=== PATIENT | female | born 1935 | race Caucasian/White ===

== ENCOUNTER 2024-07-27 18:00 | Inpatient (IN) | payer MEDICARE, SELFPAY ==
--- NOTE | ~2024-07-27 | XR_ITS ---
CLINICAL HISTORY: NG tube 1 view chest x-ray Comparison: None Findings: Mild left lower lobe atelectasis. No significant pleural effusion or pneumothorax. Prominent cardiac silhouette. No acute fracture. Enteric tube tip projects over the proximal stomach. Nonspecific bowel-gas pattern. IMPRESSION: 1. Enteric tube tip projects over the proximal stomach. 2. Mild left lower lobe atelectasis. This document has been electronically signed by: Ricky Walker MD on 08/04/2024 04:34:53
--- NOTE | ~2024-07-27 | XR_ITS ---
CLINICAL HISTORY: Abdominal distentioin, R O ileus vs. SBO Two views of the abdomen. COMPARISON: CT/SR - CT ABDOMEN PELVIS W IV CON - 07/27/24 21:30 EDT FINDINGS: Oral contrast has progressed into the distal sigmoid colon and rectum. Persistent air-filled loops of distended small bowel in the midabdomen with air-fluid levels. No pneumoperitoneum identified. No fracture identified. Mild spondylosis. Blunting of the bilateral costophrenic angles. No acute fracture. IMPRESSION: 1. Air-filled distended loops of small bowel with air-fluid levels suggestive of early or partial small bowel obstruction. Of note oral contrast has progressed into the distal sigmoid colon favoring partial small bowel obstruction. This document has been electronically signed by: Sree Rod MD on 08/01/2024 18:14:04
--- NOTE | ~2024-07-27 | CT_ITS ---
CLINICAL HISTORY: Abdominal pain. Constipation. SBO? CT Abdomen and Pelvis W Contrast COMPARISON: None FINDINGS: Subcentimeter hypodensity in the liver, too small to accurately characterize. Normal spleen. Left renal cyst. Subcentimeter hypodensities in both kidneys, too small to accurately characterize. No hydronephrosis. Normal adrenal glands. Normal pancreas. Cholelithiasis. Distended gallbladder. No gallbladder wall thickening or pericholecystic fluid. Dilated common bile duct measuring up to 10 mm in diameter. No visible choledocholithiasis. Colonic diverticulosis without evidence of acute diverticulitis. Air-fluid levels in mildly dilated small bowel loops measuring up to 2.7 cm in diameter. There is a transition point in the left lower quadrant. No mucosal thickening or pneumatosis. Normal appendix. Unremarkable bladder. Status post hysterectomy. Small ascites. No pneumoperitoneum. No lymphadenopathy. No acute fracture. Degenerative changes in the spine. Chronic appearing grade 1 spondylolistheses. No abdominal aortic aneurysm. IMPRESSION: Findings consistent with small-bowel obstruction with transition point in the left lower quadrant. Cholelithiasis, distended gallbladder, and biliary dilation. Please correlate with clinical findings to exclude acute cholecystitis. Consider ultrasound if indicated. Small ascites. Nonemergent/incidental findings above. This document has been electronically signed by: Hector Teixeira MD on 07/27/2024 22:34:11
--- NOTE | ~2024-07-27 | CT_ITS ---
CLINICAL HISTORY: dizziness CT Head WO Contrast COMPARISON: None FINDINGS: No acute intracranial hemorrhage. No evidence of acute infarction. Diffuse cortical volume loss. Nonspecific white matter hypodensities, most commonly associated with chronic microangiopathic changes. No mass-effect or midline shift. No hydrocephalus. Visualized orbits are normal. Trace fluid in the ethmoid air cells. Clear mastoid air cells. No acute fracture. Unremarkable soft tissues. IMPRESSION: No acute intracranial findings. Nonemergent/incidental findings in the report. This document has been electronically signed by: Hetcor Teixeira MD on 07/27/2024 22:21:05
--- NOTE | ~2024-07-27 | US_ITS ---
CLINICAL HISTORY: Confirm cholecystitis? Abdominal pain US abdomen limited Comparison: CT/SR - CT ABDOMEN PELVIS W IV CON - 07/27/24 21:30 EDT Findings: The common duct is 8 mm in diameter, which is normal for this patient age. The gallbladder contains stones. No wall thickening. Gallbladder is distended. There is no sonographic Davis sign. IMPRESSION: Cholelithiasis. No sonographic evidence of cholecystitis. This document has been electronically signed by: Sumit Hunter MD on 07/28/2024 01:29:06
--- NOTE | ~2024-07-27 | FL_ITS ---
EXAMINATION: FL SMALL BOWEL SERIES CLINICAL INFORMATION: f/u SBO COMPARISON: CT abdomen and pelvis exam 07/27/2024 TECHNIQUE: Following a resource protection specialist image of the abdomen, contrast was administered orally, and interval abdominal radiographs were performed to assess for contrast progression through the small bowel. Following contrast transit through the small bowel and into the colon, the patient was placed on the fluoroscopy table, and multiple spot images were obtained. FINDINGS: Bilingual Patient Support Caseworker image of the abdomen demonstrates dilated multiple small bowel loops with residual oral contrast seen in colon from previous CT abdomen and pelvis exam 07/27/2024. There is delayed transit time of contrast material through the small bowel, with contrast present in descending colon and rectum by 3 hours. Small bowel loops are of normal caliber throughout the abdomen and pelvis. The jejunal and ileal fold patterns are normal, without evidence of abnormal thickening. No fixed regions of small bowel visualized. FLUOROSCOPY TIME: 0 DOSE AREA PRODUCT: 0 uGy-m2 (microgray-meter squared) FL/FL small bowel follow through IMPRESSION: Delayed small bowel follow-through with left colon and rectum visualized by 3 hours. Electronically signed by: Alber Prieto MD 07/30/2024 01:59 PM EDT
--- NOTE | ~2024-07-27 | CT_ITS ---
CLINICAL HISTORY: left upper quadrant abdominal pain, elevated WBC CT abdomen and pelvis with IV contrast. COMPARISON: CT abdomen and pelvis dated 07/27/24 at 21:30 EDT FINDINGS: Minimal atelectasis along the lung bases. Enteric tube extends into the stomach with tip overlying the distal stomach body. No focal hepatic lesion. Small cholelithiasis within the gallbladder. No pericholecystic inflammatory changes. Normal spleen. Small splenule present. Normal pancreas. Left adrenal gland thickening, similar to prior imaging. Normal appearance of the right adrenal gland. Symmetric renal enhancement. No hydronephrosis. Left renal cystic lesions measuring up to 2.7 cm. Multiple dilated loops of small bowel measuring up to 3.4 cm. Focal transition point present in the left lower quadrant (series 3, image 61). More distal small bowel is contracted. Distal colonic diverticulosis without evidence of diverticulitis. Normal appendix. No mesenteric or retroperitoneal lymphadenopathy. Mild aortoiliac atherosclerotic vascular calcifications. Diffuse thickening of the mucosa of the urinary bladder. No adnexal mass. Small amount of free fluid present within the lower pelvis. Grade 1 anterolisthesis of L4 on L5, degenerative. Moderate lumbar spondylosis. No acute fracture. IMPRESSION: 1. High-grade small-bowel obstruction. Small bowel is dilated measuring up to 3.4 cm with focal transition point in the left lower quadrant. More distal small bowel is contracted. 2. Small volume abdominal ascites, similar to prior imaging. 3. Thickening of the mucosa of the urinary bladder may be secondary to degree of contraction or represent cystitis. Recommend correlation clinically. 4. Colonic diverticulosis without evidence of diverticulitis. This document has been electronically signed by: Sree Rod MD on 08/04/2024 15:04:51
[2024-07-27 18:10] VITALS: BP 140/50; PULSE 55; O2SAT 98
[2024-07-27 18:16] VITALS: BP 158/44; PULSE 52; RESP 16; TEMP 36.7; O2SAT 98; BMI 30.3
--- NOTE | 2024-07-27 18:22 | ECG_ITS ---
Test Reason : DIZZINESS Blood Pressure : */* mmHG Vent. Rate : 48 BPM Atrial Rate : 48 BPM P-R Int : 208 ms QRS Dur : 112 ms QT Int : 462 ms P-R-T Axes : 71 35 41 degrees QTcB Int : 412 ms Sinus bradycardia with sinus arrhythmia Incomplete right bundle branch block Borderline ECG When compared with ECG of 01-Oct-2012 07:14, No significant change was found Referred By: Catrina Moise Electronically Signed By: ENRIQUE NICOLE
[2024-07-27 18:45] LABS: MANUAL DIFF FLAG NO
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
[2024-07-27 18:50] LABS: Basophils Percent Auto 0.1 % (0-2); Hematocrit 35.2 % (37.0-47.0); Imm Gran Abs Auto 0.03 X10*3/uL (0.00-0.03); Imm Gran Pct Auto 0.4 % (0.0-0.4); Lymphocytes Absolute Auto 0.6 X10*3/uL (1.2-4.9); Lymphocytes Percent Auto 7.4 % (20-40); Mean Corpuscular HGB Conc 34.1 g/dl (31.0-35.0); Mean Corpuscular Hemoglobin 31.2 pg (27.0-33.0); Mean Corpuscular Volume 91.4 fL (80.0-98.0); Mean Platelet Volume 9.6 fL (9.4-12.3); Monocytes Absolute Auto 0.4 X10*3/uL (0.1-1.2); Monocytes Percent Auto 4.3 % (2-11); Neutrophils Absolute Auto 7.5 x10*3/uL (2.0-8.3); Neutrophils Percent Auto 87.8 % (45-73); Platelet Count 251 X10*3/uL (160-400); Red Blood Count 3.85 X10*6/uL (4.20-5.50); Red Cell Distribution Width 13.3 % (11.0-16.0); White Blood Count 8.5 X10*3/uL (4.8-10.8)
[2024-07-27] MEDS: Ketorolac Tromethamine 30 MG/ML VIAL IVPUSH (18:57)
[2024-07-27] MEDS: ondansetron HCL 4 MG/2 ML VIAL IVPUSH (18:58)
[2024-07-27 19:00] LABS: Alanine Aminotransferase 36 U/L (0-31); Albumin Level 4.5 g/dL (3.5-5.0); Alkaline Phosphatase 65 U/L (39-117); Anion Gap 14 (12-20); Aspartate Amino Transferase 31 U/L (5-31); Bilirubin Total 1.5 mg/dL (0.0-1.0); Blood Urea Nitrogen 19 mg/dL (9-16); Calcium 10.4 mg/dL (8.4-10.2); Carbon Dioxide 26 mmol/L (22-29); Chloride 100 mmol/L (96-108); Creatinine Clr Calc Pharmacy 50.2; Estimated Glomerular Filt Rate > 60; Glucose Random 137 mg/dL (60-115); Lipase 18 U/L (8-78); Potassium 3.8 mmol/L (3.3-5.1); Sodium 136 mmol/L (135-145); Total Protein 7.4 g/dL (6.5-8.0)
[2024-07-27 19:11] LABS: Troponin-I High Sensitivity < 2.7 ng/L (<3.5-17.0)
[2024-07-27 20:40] VITALS: BP 132/54; PULSE 52; RESP 14; TEMP 36.9; O2SAT 97
[2024-07-27] MEDS: iohexoL 350 MG/ML 100 ML INFUS..BTL 85 ML IV (21:42)
[2024-07-27 22:00] VITALS: PULSE 72; RESP 18; O2SAT 96
[2024-07-27 23:31] VITALS: BP 126/42; PULSE 56; RESP 19; TEMP 37.2; O2SAT 96
[2024-07-28] VITALS (7 sets, daily range): BP systolic 114–169; BP diastolic 42–85; PULSE 44–52; RESP 13–20; TEMP 36.1–37; O2SAT 94–97; BMI 29.5
[2024-07-28] MEDS: 0.9 % Sodium Chloride 1,000 ML 100 ML IVCONT ×3 (00:49→21:57)
[2024-07-28 01:33] LABS: Troponin-I High Sensitivity 4.6 ng/L (<3.5-17.0)
[2024-07-28] MEDS: ondansetron HCL 4 MG/2 ML VIAL IVPUSH (01:37)
--- NOTE | 2024-07-28 01:40 | PC.NURSE ---
late entry this rn performed bedside med rec with pt and pt son. medication confirmed with pt and pt son to the best of their ability. no list provided from home
--- NOTE | 2024-07-28 01:41 | PC.NURSE ---
pt medicated according to mar for increased nausea pt boosted up in bed denies pain at this time
--- NOTE | 2024-07-28 02:57 | MHC.EDTECH ---
this tech attemped to collect a urine sample asking pt if she wanted to try and walk or would rather a commode. pt states she does not have the urge to urinate and does not want to move. pt states she will give a sample when she is in her own room and has her own toilet.
[2024-07-28 05:36] LABS: Hematocrit 34.7 % (37.0-47.0); Mean Corpuscular HGB Conc 34.6 g/dl (31.0-35.0); Mean Corpuscular Hemoglobin 31.4 pg (27.0-33.0); Mean Corpuscular Volume 90.8 fL (80.0-98.0); Mean Platelet Volume 9.8 fL (9.4-12.3); Platelet Count 262 X10*3/uL (160-400); Red Blood Count 3.82 X10*6/uL (4.20-5.50); Red Cell Distribution Width 13.5 % (11.0-16.0); White Blood Count 10.4 X10*3/uL (4.8-10.8)
[2024-07-28 05:59] LABS: Alanine Aminotransferase 31 U/L (0-31); Albumin Level 4.2 g/dL (3.5-5.0); Alkaline Phosphatase 61 U/L (39-117); Anion Gap 14 (12-20); Aspartate Amino Transferase 30 U/L (5-31); Bilirubin Total 1.6 mg/dL (0.0-1.0); Blood Urea Nitrogen 25 mg/dL (9-16); Calcium 10.3 mg/dL (8.4-10.2); Carbon Dioxide 26 mmol/L (22-29); Chloride 97 mmol/L (96-108); Creatinine Clr Calc Pharmacy 40.7; Estimated Glomerular Filt Rate > 60; Glucose Random 125 mg/dL (60-115); Potassium 3.8 mmol/L (3.3-5.1); Sodium 133 mmol/L (135-145)
--- NOTE | 2024-07-28 07:51 | PHA.MEDREC ---
Pharmacy Consult ? Medication Reconciliation Pharmacy has completed the medication reconciliation. Revoewed med rec done by nursing (Alfreda).
[2024-07-28 08:13] LABS: Appearance Urine Clear; Color Urine Yellow; Glucose Urine UA Negative (Negative); Leukocyte Esterase Urine Negative (Negative); Nitrite Urine Negative (Negative); Specific Gravity - Urine >= 1.030 (1.005-1.025); UMIC TRIGGER UACC YES; Urine Blood Negative (Negative); Urine Ketones 15 mg/dL (Negative); Urine Protein 30 (1+) mg/dL (Neg-Trace)
[2024-07-28 08:25] LABS: Bacteria Urine Trace (None Seen); Hyaline Casts Urine 0-2 /LPF (0-2); RBC Urine 0-2 /HPF (0-2); WBC Urine 0-5 /HPF (0-5)
[2024-07-28] MEDS: Morphine Sulfate 2 MG/ML CARTRIDGE IVPUSH (08:26)
--- NOTE | 2024-07-28 08:31 | PC.NURSE ---
Assumed care of pt at 0700. Pt resting in bed quietly, a/ox3, respirations even and unlabored, no increased wob/sob noted, maintaining O2 sat >92% on RA, denies SOB/CP, Sinus kim on panel monitor, HR- 50s. Endorsing RUQ abdominal pain- medicated per MAR with pain scale. Pt assisted out of bed by heel seat flap stapler onto commode with steady gait. Vitals taken and updated in worklist. Son at bedside, call lee within reach, all needs met at this time.
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
[2024-07-28 14:55] LABS: Magnesium 2.3 mg/dL (1.6-2.6)
[2024-07-28] MEDS: bisacodyL 10 MG SUPP.RECT PR (15:31)
[2024-07-28 15:47] LABS: TSH reflex Free T4 3.24 uIU/mL (0.32-4.0)
[2024-07-28] MEDS: 0.9 % Sodium Chloride Flush 3 ML SYRINGE IVFLUSH (21:57)
[2024-07-29 03:29] VITALS: BP 127/58; PULSE 45; RESP 18; TEMP 36.4; O2SAT 97
[2024-07-29] MEDS: 0.9 % Sodium Chloride 1,000 ML 100 ML IVCONT ×2 (07:55→18:07)
--- NOTE | 2024-07-29 07:55 | PM.PNGS ---
Subjective Subjective Date of Service: 07/29/24 <Neris North PA-C - Last Filed: 07/29/24 08:00> 07/29/24 <Rory Malcolm MD - Last Filed: 07/29/24 09:04> Interval history: Feels improved, still with some mild diffuse abdominal pain. Began to pass flatus this morning. Has not been OOB. <Neris North PA-C - Last Filed: 07/29/24 08:00> Physical Exam Vital Signs: Vital Signs: Last Vital Signs Temp 97.5 F 07/29/24 03:29 Pulse 45 L 07/29/24 03:29 Resp 18 07/29/24 03:29 BP 127/58 L 07/29/24 03:29 Pulse Ox 97 07/29/24 03:29 O2 Del Method Room Air 07/29/24 03:29 BMI result Body Mass Index 29.5 <MARCELINO Zhang Last Filed: 07/29/24 08:00> Const: General: comfortable, no acute distress and alert <Neris North PA-C - Last Filed: 07/29/24 08:00> Orientation/consciousness: patient oriented x3 <MARCELINO Zhang Last Filed: 07/29/24 08:00> Resp: Effort & Inspection: normal respiratory effort <MARCELINO Zhang Last Filed: 07/29/24 08:00> GI: Inspection: Yes distended (mild ) <MARCELINO Zhang Last Filed: 07/29/24 08:00> Palpation (GI): Soft to palpation, Tenderness to palpation present (GI) (mild diffuse tenderness) and no guarding <MARCELINO Zhang Last Filed: 07/29/24 08:00> Percussion: Yes tympanic to percussion <MARCELINO Zhang Last Filed: 07/29/24 08:00> Skin: General skin exam: no rashes or lesions noted <MARCELINO Zhang Last Filed: 07/29/24 08:00> Neuro: General: patient oriented x3 and moves all extremities <Neris North PA-C - Last Filed: 07/29/24 08:00> Objective Data Active Medications Acetaminophen (Acetaminophen 325 Mg Tablet) 650 mg PO Q6H PRN PRN Reason: Pain, Mild 1-3,fever,headache Atorvastatin Calcium (Atorvastatin Calcium 10 Mg Tablet) 10 mg PO DAILY [facility] Hydrochlorothiazide (Hydrochlorothiazide 12.5 Mg Tablet) 12.5 mg PO DAILY [facility]; Protocol Sodium Chloride (Ns) 1,000 mls @ 100 mls/hr IVCONT .Q10H [facility] Last Admin: 07/28/24 21:57 Dose: 100 mls/hr Documented By: GERALD Morphine Sulfate (Morphine Sulfate 2 Mg/Ml Cartridge) 2 mg IVPUSH Q4H PRN; Protocol PRN Reason: Pain, Severe (Pain Scale 7-10) Last Admin: 07/28/24 08:26 Dose: 2 mg Documented By: SAMANTHA Non-Formulary Medication (Bimatoprost [Lumigan]) 1 drop EYE-BOTH BEDTIME [facility] Non-Formulary Medication (Brinzolamide-Brimonidine [Simbrinza]) 1 drop EYE-BOTH BID [facility] Ondansetron HCl (Ondansetron Hcl 4 Mg/2 Ml Vial) 4 mg IVPUSH Q8H PRN PRN Reason: Nausea and Vomiting Last Admin: 07/28/24 01:37 Dose: 4 mg Documented By: FAWAD Sodium Chloride (0.9 % Sodium Chloride Flush 3 Ml Syringe) 3 ml IVFLUSH QSHIFT [facility] Last Admin: 07/29/24 06:56 Dose: Not Given Documented By: MADELEINE Non-Admin Reason: IV Running <Neris North PA-C - Last Filed: 07/29/24 08:00> Labs CBC & Chem 7: 07/28/24 05:05 07/28/24 05:05 <Neris North PA-C - Last Filed: 07/29/24 08:00> Labs: Laboratory Results - last 24 hr 07/28/24 07/28/24 05:05 08:02 Magnesium 2.3 TSH 3.24 Urine Color Yellow Urine Appearance Clear Urine pH 6.0 Ur Specific [place] >= 1.030 H Urine Protein 30 (1+) H Urine Glucose (UA) Negative Urine Ketones 15 Urine Blood Negative Urine Nitrite Negative Ur Leukocyte Esterase Negative Urine RBC 0-2 Urine WBC 0-5 Ur Squamous Epith Cells 3-5 Urine Bacteria Trace Hyaline Casts 0-2 <Neris North PA-C - Last Filed: 07/29/24 08:00> Procedures Date of Service Date of Service: 07/29/24 <Neris North PA-C - Last Filed: 07/29/24 08:00> 07/29/24 <Rory Malcolm MD - Last Filed: 07/29/24 09:04> Progress Note: A&P Assessment and plan (1) Small bowel obstruction: Status: Acute <Neris North PA-C - Last Filed: 07/29/24 08:00> Assessment and Plan: Feels well this morning Main complaint appears to be constipation Describes pain on the lower abdomen mostly Abdomen soft, no right upper quadrant tenderness Clinically not cholecystitis We will hold off on cholecystectomy Seen and examined independently <Rory Malcolm MD - Last Filed: 07/29/24 09:04> Assessment and Plan: Feels overall improved. Some evidence of GI function, abd remains slightly distended and tympanitic. Encouraged OOB/ambulation today to promote GI function. Keep NPO, ok for ice chips/sips. Cont IVF. Clinical picture not suggestive of acute cholecystitis. <Neris North PA-C - Last Filed: 07/29/24 08:00> Time Spent With Patient Time: Total time managing care of this patient today ____ minutes. <Neris North PA-C - Last Filed: 07/29/24 08:00> Quality Stroke Does the patient have a stroke diagnosis?: No <Neris North PA-C - Last Filed: 07/29/24 08:00> VTE Prior VTE?: No <Neris North PA-C - Last Filed: 07/29/24 08:00> VTE Risk Level:: Medical - low <MARCELINO Zhang Last Filed: 07/29/24 08:00> VTE Device Contraindication: Treatment Not Indicated <Neris North PA-C - Last Filed: 07/29/24 08:00> VTE Drug Contraindication: Treatment Not Indicated <Neris North PA-C - Last Filed: 07/29/24 08:00>
[2024-07-29] MEDS: hydroCHLOROthiazide 12.5 MG TABLET PO (08:01)
[2024-07-29] MEDS: Atorvastatin Calcium 10 MG TABLET PO (08:02)
[2024-07-29 08:03] VITALS: BP 142/72; PULSE 51; RESP 13; TEMP 36.8; O2SAT 98
[2024-07-29] MEDS: BRINZOLAMIDE BRIMONIDINE 1 EACH EYE-BOTH ×2 (09:00→20:41)
[2024-07-29 14:25] VITALS: BP 161/66; PULSE 50; RESP 18; TEMP 36.9; O2SAT 97
--- NOTE | 2024-07-29 14:30 | PM.EVENT ---
Event Note Date of Service: 07/29/24 Event Note: Seen on afternoon rounds She says she feels much better No nausea or vomiting Abdomen is soft and benign Minimally tender No Davis's sign We will start trial of clear liquids Time Spent With Patient Time: Total time managing care of this patient today ____ minutes.
--- NOTE | 2024-07-29 15:55 | MHC.CM.PN ---
PT REPORTS SHE IS FROM [facility] IN [place] PT STATES SHE HAS NO SERVICES OR DME COPY OF HCP REQUESTED PCP: [facility] DELIVERED DCP: PT HOPES TO RETURN HOME WITH NO SERVICES FAMILY TO TRANSPORT
[2024-07-29 15:57] VITALS: BP 175/74; PULSE 44; RESP 14; TEMP 36.9; O2SAT 97
[2024-07-29] MEDS: BIMATOPROST 0.01% 1 EACH EYE-BOTH (20:42)
[2024-07-29 22:00] VITALS: BP 175/75; PULSE 50; RESP 17; TEMP 37.1; O2SAT 97
[2024-07-29] MEDS: Morphine Sulfate 2 MG/ML CARTRIDGE IVPUSH (23:47)
[2024-07-30 06:00] VITALS: BP 161/69; PULSE 50; RESP 17; TEMP 36.8; O2SAT 96
[2024-07-30 07:00] VITALS: BP 162/74; PULSE 64; PULSE 67; RESP 20; TEMP 36.3; O2SAT 96
[2024-07-30 07:20] VITALS: BP 154/68; PULSE 50; RESP 18; TEMP 36.4; O2SAT 97
--- NOTE | 2024-07-30 07:38 | PM.PNGS ---
Subjective Subjective Date of Service: 07/30/24 <Neris North PA-C - Last Filed: 07/30/24 07:43> 07/30/24 <Rory Malcolm MD - Last Filed: 07/30/24 08:04> Interval history: Had difficulty with pain yesterday. Required morphine. Overall just does not feel significantly improved although she is passing flatus and has had a few small hard BMs. <Neris North PA-C - Last Filed: 07/30/24 07:43> Physical Exam Vital Signs: Vital Signs: Last Vital Signs Temp 97.6 F 07/30/24 07:20 Pulse 50 07/30/24 07:20 Resp 18 07/30/24 07:20 BP 154/68 H 07/30/24 07:20 Pulse Ox 97 07/30/24 07:20 O2 Del Method Room Air 07/30/24 07:20 BMI result Body Mass Index 29.5 <Neris North PA-C - Last Filed: 07/30/24 07:43> Const: General: comfortable, no acute distress and alert <Neris North PA-C - Last Filed: 07/30/24 07:43> Orientation/consciousness: patient oriented x3 <MARCELINO Zhang Last Filed: 07/30/24 07:43> Resp: Effort & Inspection: normal respiratory effort <MARCELINO Zhang Last Filed: 07/30/24 07:43> GI: Inspection: Yes distended <Neris North PA-C - Last Filed: 07/30/24 07:43> Palpation (GI): Soft to palpation, Tenderness to palpation present (GI) (moderate mid and upper b/l abdominal tenderness) and no guarding <Neris North PA-C - Last Filed: 07/30/24 07:43> Percussion: Yes tympanic to percussion <MARCELINO Zhang Last Filed: 07/30/24 07:43> Skin: General skin exam: no rashes or lesions noted <MARCELINO Zhang Last Filed: 07/30/24 07:43> Neuro: General: patient oriented x3 and moves all extremities <Neris North PA-C - Last Filed: 07/30/24 07:43> Objective Data Active Medications Acetaminophen (Acetaminophen 325 Mg Tablet) 650 mg PO Q6H PRN PRN Reason: Pain, Mild 1-3,fever,headache Atorvastatin Calcium (Atorvastatin Calcium 10 Mg Tablet) 10 mg PO DAILY [facility] Last Admin: 07/29/24 08:02 Dose: 10 mg Documented By: MADELEINE Hydrochlorothiazide (Hydrochlorothiazide 12.5 Mg Tablet) 12.5 mg PO DAILY [facility]; Protocol Last Admin: 07/29/24 08:01 Dose: 12.5 mg Documented By: MADELEINE Morphine Sulfate (Morphine Sulfate 2 Mg/Ml Cartridge) 2 mg IVPUSH Q4H PRN; Protocol PRN Reason: Pain, Severe (Pain Scale 7-10) Last Admin: 07/29/24 23:47 Dose: 2 mg Documented By: BRISSA Pt Own Medication ( Bimatoprost [Lumigan ] 0.01 % Drops) 1 drop EYE-BOTH BEDTIME [facility] Last Admin: 07/29/24 20:42 Dose: 1 drop Documented By: BRISSA Pt Own Medication ( Brinzolamide- Brimonidine [ Simbrinza] 1-0.2 % Drops,Suspension) 1 drop EYE-BOTH BID [facility] Last Admin: 07/29/24 20:41 Dose: 1 drop Documented By: BRISSA Ondansetron HCl (Ondansetron Hcl 4 Mg/2 Ml Vial) 4 mg IVPUSH Q8H PRN PRN Reason: Nausea and Vomiting Last Admin: 07/28/24 01:37 Dose: 4 mg Documented By: FAWAD Sodium Chloride (0.9 % Sodium Chloride Flush 3 Ml Syringe) 3 ml IVFLUSH QSSDFT [facility] Last Admin: 07/30/24 00:48 Dose: Not Given Documented By: BRISSA Non-Admin Reason: IV Running <Neris North PA-C - Last Filed: 07/30/24 07:43> Labs CBC & Chem 7: 07/28/24 05:05 07/28/24 05:05 <Neris North PA-C - Last Filed: 07/30/24 07:43> Procedures Date of Service Date of Service: 07/30/24 <Neris North PA-C - Last Filed: 07/30/24 07:43> 07/30/24 <Rory Malcolm MD - Last Filed: 07/30/24 08:04> Progress Note: A&P Assessment and plan (1) Small bowel obstruction: Status: Acute <Neris North PA-C - Last Filed: 07/30/24 07:43> Assessment and Plan: Describes pain yesterday mostly in the lower abdomen No nausea or vomiting Abdomen is soft, benign, mild diffuse tenderness No fever Passing flatus Small bowel series ordered today with Gastrografin Seen and examined independently <Rory Malcolm MD - Last Filed: 07/30/24 08:04> Assessment and Plan: Will order for SBFT this morning to reassess given persistent pain, distention. Cont to encouraged OOB/ambulation. HR increased to 120s with ambulation yesterday, bradycardic at baseline. Was asymptomatic. Repeat BMP this morning. Cont to monitor. Cont IVF. <Neris North PA-C - Last Filed: 07/30/24 07:43> Time Spent With Patient Time: Total time managing care of this patient today ____ minutes. <Neris North PA-C - Last Filed: 07/30/24 07:43> Quality Stroke Does the patient have a stroke diagnosis?: No <eNris North PA-C - Last Filed: 07/30/24 07:43> VTE Prior VTE?: No <Neris North PA-C - Last Filed: 07/30/24 07:43> VTE Risk Level:: Medical - low <Neris North PA-C - Last Filed: 07/30/24 07:43> VTE Device Contraindication: Treatment Not Indicated <Neris North PA-C - Last Filed: 07/30/24 07:43> VTE Drug Contraindication: Treatment Not Indicated <Neris North PA-C - Last Filed: 07/30/24 07:43>
[2024-07-30 08:52] LABS: Anion Gap 11 (12-20); Blood Urea Nitrogen 17 mg/dL (9-16); Calcium 9.1 mg/dL (8.4-10.2); Carbon Dioxide 26 mmol/L (22-29); Chloride 102 mmol/L (96-108); Creatinine Clr Calc Pharmacy 50.2; Estimated Glomerular Filt Rate > 60; Glucose Fasting 111 mg/dL (60-99); Potassium 3.4 mmol/L (3.3-5.1); Sodium 136 mmol/L (135-145)
--- NOTE | 2024-07-30 09:41 | P.PNIM_ITS ---
Subjective Subjective Date of Service: 07/30/24 Interval History: feeling better, no dizziness Physical Exam 2 Vital Signs: Vital Signs: Last Vital Signs Temp 97.6 F 07/30/24 07:20 Pulse 50 07/30/24 07:20 Resp 18 07/30/24 07:20 BP 154/68 H 07/30/24 07:20 Pulse Ox 97 07/30/24 07:20 O2 Del Method Room Air 07/30/24 07:20 BMI result Body Mass Index 29.5 Const: Other: General: AO X 3, no acute distress Resp: CTA bilateral CVS: S1,S2,RRR GI: +BS, NT, no distention Skin: No rash Neuro: motor grossly intact Psych: appropriate affect Objective Data Active Medications Acetaminophen (Acetaminophen 325 Mg Tablet) 650 mg PO Q6H PRN PRN Reason: Pain, Mild 1-3,fever,headache Atorvastatin Calcium (Atorvastatin Calcium 10 Mg Tablet) 10 mg PO DAILY [facility] Last Admin: 07/29/24 08:02 Dose: 10 mg Documented By: MADELEINE Hydrochlorothiazide (Hydrochlorothiazide 12.5 Mg Tablet) 12.5 mg PO DAILY [facility]; Protocol Last Admin: 07/29/24 08:01 Dose: 12.5 mg Documented By: MADELEINE Sodium Chloride (Ns) 1,000 mls @ 100 mls/hr IVCONT .Q10H [facility] Morphine Sulfate (Morphine Sulfate 2 Mg/Ml Cartridge) 2 mg IVPUSH Q4H PRN; Protocol PRN Reason: Pain, Severe (Pain Scale 7-10) Last Admin: 07/29/24 23:47 Dose: 2 mg Documented By: BRISSA Pt Own Medication ( Bimatoprost [Lumigan ] 0.01 % Drops) 1 drop EYE-BOTH BEDTIME [facility] Last Admin: 07/29/24 20:42 Dose: 1 drop Documented By: BRISSA Pt Own Medication ( Brinzolamide- Brimonidine [ Simbrinza] 1-0.2 % Drops,Suspension) 1 drop EYE-BOTH BID [facility] Last Admin: 07/29/24 20:41 Dose: 1 drop Documented By: BRISSA Ondansetron HCl (Ondansetron Hcl 4 Mg/2 Ml Vial) 4 mg IVPUSH Q8H PRN PRN Reason: Nausea and Vomiting Last Admin: 07/28/24 01:37 Dose: 4 mg Documented By: FAWAD Sodium Chloride (0.9 % Sodium Chloride Flush 3 Ml Syringe) 3 ml IVFLUSH QSHIFT [facility] Last Admin: 07/30/24 00:48 Dose: Not Given Documented By: BRISSA Non-Admin Reason: IV Running Labs 07/28/24 05:05 07/30/24 08:06 Labs: Laboratory Results - last 24 hr 07/30/24 08:06 Hold Purple Top SEE NOTE Anion Gap 11 L Estim Creat Clear Calc 50.2 Estimated GFR > 60 Fasting Glucose 111 H Calcium 9.1 D Assessment and Plan (1) Bradycardia: Status: Acute Plan Pt is an 89-year-old female with a PMH significant for HTN, HLD, glaucoma, and surgical hx of hysterectomy and appendectomy who was admitted to the hospital under general surgery services for possible SBO. CT of abdomen and pelvis in the ED showed findings consistent with SBO with transition point in left lower quadrant, as well as cholelithiasis with distended gallbladder and biliary dilation. Abdomen ultrasound showed cholelithiasis but no sonographic evidence of cholecystitis. Medical consult for bradycardia and medical management. SBO, clinically improving, management per surgery Bradycardia, HR in 50s, ECG sinus kim with sinus arrythmia, unchanged since September 2012, assymptomatic, not on rate lowering meds, monitor HLD Continue statin HTN Continue hydrochlorothiazide Glaucoma Continue home eyedrops medically stable at this time and can be dc from medical standpoint and resume prior meds Quality Stroke Does the patient have a stroke diagnosis?: No VTE Prior VTE?: No VTE Risk Level:: Medical - low VTE Device Contraindication: Treatment Not Indicated VTE Drug Contraindication: Treatment Not Indicated
[2024-07-30] MEDS: Diatrizoate Meglumine, Sodium 120 ML SOLUTION 480 ML PO (10:55)
[2024-07-30] MEDS: BRINZOLAMIDE BRIMONIDINE 1 EACH EYE-BOTH ×2 (11:10→21:08)
[2024-07-30] MEDS: Atorvastatin Calcium 10 MG TABLET PO (11:11)
[2024-07-30] MEDS: hydroCHLOROthiazide 12.5 MG TABLET PO (11:11)
[2024-07-30] MEDS: 0.9 % Sodium Chloride Flush 3 ML SYRINGE IVFLUSH ×2 (11:11→18:40)
[2024-07-30] MEDS: 0.9 % Sodium Chloride 1,000 ML 100 ML IVCONT ×2 (11:13→23:39)
[2024-07-30] MEDS: ondansetron HCL 4 MG/2 ML VIAL IVPUSH ×2 (15:28→22:29)
[2024-07-30 15:54] VITALS: BP 187/77; PULSE 50; RESP 18; TEMP 36.8; O2SAT 98
[2024-07-30] MEDS: Erythromycin Base 250 MG TABLET PO (18:40)
[2024-07-30] MEDS: Morphine Sulfate 2 MG/ML CARTRIDGE IVPUSH (18:43)
[2024-07-30 20:00] VITALS: BP 162/74; PULSE 67; RESP 20; TEMP 36.3; O2SAT 96
[2024-07-30] MEDS: BIMATOPROST 0.01% 1 EACH EYE-BOTH (21:08)
[2024-07-30 21:16] VITALS: RESP 18
[2024-07-30] MEDS: Melatonin 3 MG TABLET 6 MG PO (22:25)
[2024-07-31 03:40] VITALS: BP 155/67; PULSE 44; RESP 16; TEMP 36.7; O2SAT 95
--- NOTE | 2024-07-31 08:15 | P.PNGS_ITS ---
Subjective Subjective Date of Service: 08/02/24 Interval history: Says she has a good night Admits to passing large amounts of watery stools after excision of oral contrast yesterday Complains of ?burping? and reflux Physical Exam 2 Vital Signs: Vital Signs: Last Vital Signs Temp 98.0 F 07/31/24 03:40 Pulse 44 L 07/31/24 03:40 Resp 16 07/31/24 03:40 BP 155/67 H 07/31/24 03:40 Pulse Ox 95 07/31/24 03:40 O2 Del Method Room Air 07/31/24 03:40 BMI result Body Mass Index 29.5 Const: General: comfortable and no acute distress Resp: Effort & Inspection: normal respiratory effort Cardio: Rate: regular rate GI: Other: Mild diffuse tenderness mostly in lower abdomen Palpation (GI): Soft to palpation, not firm and no guarding Objective Data Active Medications Acetaminophen (Acetaminophen 325 Mg Tablet) 650 mg PO Q6H PRN PRN Reason: Pain, Mild 1-3,fever,headache Atorvastatin Calcium (Atorvastatin Calcium 10 Mg Tablet) 10 mg PO DAILY [facility] Last Admin: 07/30/24 11:11 Dose: 10 mg Documented By: ANY Erythromycin (Erythromycin Base 250 Mg Tablet) 250 mg PO TIDWM [facility] Last Admin: 07/30/24 18:40 Dose: 250 mg Documented By: ANY Hydrochlorothiazide (Hydrochlorothiazide 12.5 Mg Tablet) 12.5 mg PO DAILY [facility]; Protocol Last Admin: 07/30/24 11:11 Dose: 12.5 mg Documented By: ANY Sodium Chloride (Ns) 1,000 mls @ 100 mls/hr IVCONT .Q10H [facility] Last Admin: 07/31/24 03:47 Dose: Not Given Documented By: BRISSA Non-Admin Reason: IV Running Melatonin (Melatonin 3 Mg Tablet) 6 mg PO BEDTIME PRN PRN Reason: Insomnia Last Admin: 07/30/24 22:25 Dose: 6 mg Documented By: BRISSA Morphine Sulfate (Morphine Sulfate 2 Mg/Ml Cartridge) 2 mg IVPUSH Q4H PRN; Protocol PRN Reason: Pain, Severe (Pain Scale 7-10) Last Admin: 07/30/24 18:43 Dose: 2 mg Documented By: ANY Pt Own Medication ( Bimatoprost [Lumigan ] 0.01 % Drops) 1 drop EYE-BOTH BEDTIME [facility] Last Admin: 07/30/24 21:08 Dose: 1 drop Documented By: BRISSA Pt Own Medication ( Brinzolamide- Brimonidine [ Simbrinza] 1-0.2 % Drops,Suspension) 1 drop EYE-BOTH BID [facility] Last Admin: 07/30/24 21:08 Dose: 1 drop Documented By: BRISSA Ondansetron HCl (Ondansetron Hcl 4 Mg/2 Ml Vial) 4 mg IVPUSH Q8H PRN PRN Reason: Nausea and Vomiting Last Admin: 07/30/24 22:29 Dose: 4 mg Documented By: BRISSA Sodium Chloride (0.9 % Sodium Chloride Flush 3 Ml Syringe) 3 ml IVFLUSH QSHIFT [facility] Last Admin: 07/31/24 00:05 Dose: Not Given Documented By: BRISSA Non-Admin Reason: IV Running Labs 08/01/24 15:05 08/02/24 06:10 Labs: Laboratory Results - last 24 hr 07/30/24 08:06 Hold Purple Top SEE NOTE Anion Gap 11 L Estim Creat Clear Calc 50.2 Estimated GFR > 60 Fasting Glucose 111 H Calcium 9.1 D Laboratory Results WBC 10.4 X10*3/uL (4.8-10.8) 07/28/24 05:05 RBC 3.82 X10*6/uL (4.20-5.50) L 07/28/24 05:05 Hgb 12.0 g/dl (12.0-16.0) 07/28/24 05:05 Hct 34.7 % (37.0-47.0) L 07/28/24 05:05 MCV 90.8 fL (80.0-98.0) 07/28/24 05:05 MCH 31.4 pg (27.0-33.0) 07/28/24 05:05 MCHC 34.6 g/dl (31.0-35.0) 07/28/24 05:05 RDW 13.5 % (11.0-16.0) 07/28/24 05:05 Plt Count 262 X10*3/uL (160-400) 07/28/24 05:05 MPV 9.8 fL (9.4-12.3) 07/28/24 05:05 Immature Gran % (Auto) 0.4 % (0.0-0.4) 07/27/24 18:38 Neut % (Auto) 87.8 % (45-73) H 07/27/24 18:38 Lymph % (Auto) 7.4 % (20-40) L 07/27/24 18:38 [place] % (Auto) 4.3 % (2-11) 07/27/24 18:38 Eos % (Auto) 0.0 % (0-4) 07/27/24 18: Baso % (Auto) 0.1 % (0-2) 07/27/24 18:38 Lymph # (Auto) 0.6 X10*3/uL (1.2-4.9) L 07/27/24 18:38 [place] # (Auto) 0.4 X10*3/uL (0.1-1.2) 07/27/24 18:38 Eos # (Auto) 0.0 X10*3/uL (0.0-0.4) 07/27/24 18:38 Baso # (Auto) 0.0 X10*3/uL (0.0-0.2) 07/27/24 18:38 Abs Immat Gran (auto) 0.03 X10*3/uL (0.00-0.03) 07/27/24 18:38 Absolute Neuts (auto) 7.5 x10*3/uL (2.0-8.3) 07/27/24 18: Absolute Nucleated RBC 0.000 X10*3/uL (0.0-0.012) 07/28/24 05:05 Nucleated RBC % (auto) 0.0 /100WBC (0.0-0.2) 07/28/24 05:05 Hold Purple Top SEE NOTE 07/30/24 08:06 Sodium 136 mmol/L (135-145) 07/30/24 08:06 Potassium 3.4 mmol/L (3.3-5.1) 07/30/24 08:06 Chloride 102 mmol/L (96-108) 07/30/24 08:06 Carbon Dioxide 26 mmol/L (22-29) 07/30/24 08:06 Anion Gap 11 (12-20) L 07/30/24 08:06 BUN 17 mg/dL (9-16) H 07/30/24 08:06 Creatinine 0.64 mg/dL (0.5-1.4) 07/30/24 08:06 Estim Creat Clear Calc 50.2 07/30/24 08:06 Estimated GFR > 60 07/30/24 08:06 Random Glucose 125 mg/dL (60-115) H 07/28/24 05:05 Fasting Glucose 111 mg/dL (60-99) H 07/30/24 08:06 Calcium 9.1 mg/dL (8.4-10.2) D 07/30/24 08:06 Magnesium 2.3 mg/dL (1.6-2.6) 07/28/24 05:05 Total Bilirubin 1.6 mg/dL (0.0-1.0) H 07/28/24 05:05 AST 30 U/L (5-31) 07/28/24 05:05 ALT 31 U/L (0-31) 07/28/24 05:05 Alkaline Phosphatase 61 U/L (39-117) 07/28/24 05:05 Troponin I High Sens 4.6 ng/L (<3.5-17.0) D 07/28/24 01:06 Total Protein 7.0 g/dL (6.5-8.0) 07/28/24 05:05 Albumin 4.2 g/dL (3.5-5.0) 07/28/24 05:05 Lipase 18 U/L (8-78) 07/27/24 18:38 TSH 3.24 uIU/mL (0.32-4.0) 07/28/24 05:05 Urine Color Yellow 07/28/24 08:02 Urine Appearance Clear 07/28/24 08:02 Urine pH 6.0 (5.0-9.0) 07/28/24 08:02 Ur Specific [place] >= 1.030 (1.005-1.025) H 07/28/24 08:02 Urine Protein 30 (1+) mg/dL (Neg-Trace) H 07/28/24 08:02 Urine Glucose (UA) Negative mg/dL (Negative) 07/28/24 08:02 Urine Ketones 15 mg/dL (Negative) 07/28/24 08:02 Urine Blood Negative (Negative) 07/28/24 08:02 Urine Nitrite Negative (Negative) 07/28/24 08:02 Ur Leukocyte Esterase Negative (Negative) 07/28/24 08:02 Urine RBC 0-2 /HPF (0-2) 07/28/24 08:02 Urine WBC 0-5 /HPF (0-5) 07/28/24 08:02 Ur Squamous Epith Cells 3-5 /HPF (0-2) 07/28/24 08:02 Urine Bacteria Trace (None Seen) 07/28/24 08:02 Hyaline Casts 0-2 /LPF (0-2) 07/28/24 08:02 Impressions Upper GI and Small Bowel X-Ray 07/30/24 08:24 IMPRESSION: Delayed small bowel follow-through with left colon and rectum visualized by 3 hours. Electronically signed by: Alber Prieto MD 07/30/2024 01:59 PM EDT RP Procedures Date of Service Date of Service: 08/02/24 Progress Note: A&P Assessment and plan (1) Abdominal pain: Status: Acute Assessment and Plan: Small bowel series done yesterday does not reveal obstruction although there is note of some delay of passage of contrast into the colon Suggestive of ileus Abdomen is soft and benign She does admit to burping and reflux We will keep on clear liquids for now Has had BMs after oral contrast Hospitalist following as well Had a long discussion with her son with regards to the above Currently no surgical intervention seems to be necessary Time Spent With Patient Time: Total time managing care of this patient today ____ minutes. Quality Stroke Does the patient have a stroke diagnosis?: No VTE Prior VTE?: No VTE Risk Level:: Medical - low VTE Device Contraindication: Treatment Not Indicated VTE Drug Contraindication: Treatment Not Indicated
[2024-07-31 08:32] VITALS: BP 173/81; PULSE 56; RESP 17; TEMP 37.2; O2SAT 94
[2024-07-31 09:28] VITALS: BP 162/59
[2024-07-31] MEDS: hydroCHLOROthiazide 12.5 MG TABLET PO (09:28)
[2024-07-31] MEDS: Atorvastatin Calcium 10 MG TABLET PO (09:28)
[2024-07-31] MEDS: Erythromycin Base 250 MG TABLET PO ×3 (09:28→17:31)
[2024-07-31] MEDS: BRINZOLAMIDE BRIMONIDINE 1 EACH EYE-BOTH ×2 (09:29→20:19)
--- NOTE | 2024-07-31 12:36 | P.PNIM_ITS ---
Subjective Subjective Date of Service: 07/31/24 Interval History: Pt seen and evaluated for follow-up for for concern for SBO vs ileus Had multiple bowel movements, mixed with watery and solid, some incontinence Small bowel follow through series negative for obstruction but showed delayed emptying Reports feeling well overall Has been tolerating clear liquid diet No nausea since last night, no vomiting Denies chest pain or pressure No lightheadedness or dizziness Physical Exam 2 Vital Signs: Vital Signs: Last Vital Signs Temp 99 F 07/31/24 08:32 Pulse 56 07/31/24 08:32 Resp 17 07/31/24 08:32 BP 162/59 H 07/31/24 09:28 Pulse Ox 94 07/31/24 08:32 O2 Del Method Room Air 07/31/24 08:32 BMI result Body Mass Index 29.5 General: AOx3, no acute distress Resp: CTA bilaterally CVS: S1, S2, RRR GI: +BS in all quadrants, soft, moderate distension Skin: Warm, dry Neuro: Cranial nerves II-XII grossly intact bilaterally. Motor grossly intact bilaterally Extremities: No edema Psych: Appropriate affect Objective Data Active Medications Acetaminophen (Acetaminophen 325 Mg Tablet) 650 mg PO Q6H PRN PRN Reason: Pain, Mild 1-3,fever,headache Atorvastatin Calcium (Atorvastatin Calcium 10 Mg Tablet) 10 mg PO DAILY [facility] Last Admin: 07/31/24 09:28 Dose: 10 mg Documented By: NALDO Erythromycin (Erythromycin Base 250 Mg Tablet) 250 mg PO TIDWM [facility] Last Admin: 07/31/24 12:11 Dose: 250 mg Documented By: NALDO Hydrochlorothiazide (Hydrochlorothiazide 12.5 Mg Tablet) 12.5 mg PO DAILY [facility]; Protocol Last Admin: 07/31/24 09:28 Dose: 12.5 mg Documented By: NALDO Comments: BP re-checked at 0920. Melatonin (Melatonin 3 Mg Tablet) 6 mg PO BEDTIME PRN PRN Reason: Insomnia Last Admin: 07/30/24 22:25 Dose: 6 mg Documented By: BRISSA Morphine Sulfate (Morphine Sulfate 2 Mg/Ml Cartridge) 2 mg IVPUSH Q4H PRN; Protocol PRN Reason: Pain, Severe (Pain Scale 7-10) Last Admin: 07/30/24 18:43 Dose: 2 mg Documented By: ANY Pt Own Medication ( Bimatoprost [Lumigan ] 0.01 % Drops) 1 drop EYE-BOTH BEDTIME [facility] Last Admin: 07/30/24 21:08 Dose: 1 drop Documented By: BRISSA Pt Own Medication ( Brinzolamide- Brimonidine [ Simbrinza] 1-0.2 % Drops,Suspension) 1 drop EYE-BOTH BID [facility] Last Admin: 07/31/24 09:29 Dose: 1 drop Documented By: NALDO Ondansetron HCl (Ondansetron Hcl 4 Mg/2 Ml Vial) 4 mg IVPUSH Q8H PRN PRN Reason: Nausea and Vomiting Last Admin: 07/30/24 22:29 Dose: 4 mg Documented By: BRISSA Sodium Chloride (0.9 % Sodium Chloride Flush 3 Ml Syringe) 3 ml IVFLUSH QSHIFT [facility] Last Admin: 07/31/24 09:16 Dose: Not Given Documented By: NALDO Non-Admin Reason: IV Running Labs 07/28/24 05:05 07/30/24 08:06 Assessment and Plan (1) Abdominal pain: Status: Acute Plan Pt is an 89-year-old female with a PMH significant for HTN, HLD, glaucoma, and surgical hx of hysterectomy and appendectomy who was admitted to the hospital under general surgery services for possible SBO. CT of abdomen and pelvis in the ED showed findings consistent with SBO with transition point in left lower quadrant, as well as cholelithiasis with distended gallbladder and biliary dilation. Abdomen ultrasound showed cholelithiasis but no sonographic evidence of cholecystitis. Medical consult for bradycardia and medical management. 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 Quality Stroke Does the patient have a stroke diagnosis?: No VTE Prior VTE?: No VTE Risk Level:: Medical - low VTE Device Contraindication: Treatment Not Indicated VTE Drug Contraindication: Treatment Not Indicated
[2024-07-31 13:44] VITALS: BP 151/66; PULSE 50; RESP 20; TEMP 37.2; O2SAT 97
--- NOTE | 2024-07-31 14:37 | MHC.CM.PN ---
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 Original Note: EMR REVIEWED, PT NOW W/IMAGING SUGGRSTIVE OF ILEUS, PT WILL REMAIN ON CLEAR LIQUIDS, PLAN CONT'S TO BE FOR PT TO RETURN TO [facility] ONCE MEDICALLY CLEARED, CM WILL CONT TO FOLLOW DC NEEDS.
[2024-07-31] MEDS: 0.9 % Sodium Chloride Flush 3 ML SYRINGE IVFLUSH (20:23)
[2024-07-31] MEDS: BIMATOPROST 0.01% 1 EACH EYE-BOTH (20:27)
[2024-07-31] MEDS: ondansetron HCL 4 MG/2 ML VIAL IVPUSH (21:46)
[2024-07-31 22:00] VITALS: BP 135/61; PULSE 54; RESP 18; TEMP 36.4; O2SAT 97
[2024-08-01 00:55] VITALS: BP 153/69; PULSE 52; RESP 20; O2SAT 94
[2024-08-01] MEDS: hydrOXYzine HCL 25 MG TABLET PO ×3 (00:55→22:23)
--- NOTE | 2024-08-01 03:06 | PC.NURSE ---
0055-- Patient stating to be feeling restless with some anxiety, after talking and discussing her medications, Pt wishing to try Atarax PO at this time. vitals 153/69-52-20- 94% room air. Noted able to relax and fall asleep with no s/sx distress. Will continue to monitor.
[2024-08-01 03:12] VITALS: BP 138/65; PULSE 54; RESP 18; TEMP 37.1; O2SAT 94
--- NOTE | 2024-08-01 07:34 | P.PNGS_ITS ---
Subjective Subjective Date of Service: 08/01/24 <Neris North PA-C - Last Filed: 08/01/24 07:41> 08/02/24 <Rory Malcolm MD - Last Filed: 08/02/24 09:16> Interval history: Had a difficult night and was unable to sleep. Continues to belch and feels bloated. Still having loose stools but improving. Nausea with sips of liquids yesterday. She reports being OOB to chair yesterday but no ambulation as she felt so poorly. Will try to walk this morning. <MARCELINO Zhang Last Filed: 08/01/24 07:41> Physical Exam 2 Vital Signs: Vital Signs: Last Vital Signs Temp 98.7 F 08/01/24 03:12 Pulse 54 08/01/24 03:12 Resp 18 08/01/24 03:12 BP 138/65 08/01/24 03:12 Pulse Ox 94 08/01/24 03:12 O2 Del Method Room Air 08/01/24 03:12 BMI result Body Mass Index 29.5 <Neris North PA-C - Last Filed: 08/01/24 07:41> Const: General: no acute distress and alert <MARCELINO Zhang Last Filed: 08/01/24 07:41> Orientation/consciousness: patient oriented x3 <MARCELINO Zhang Last Filed: 08/01/24 07:41> Resp: Effort & Inspection: normal respiratory effort <MARCELINO Zhang Last Filed: 08/01/24 07:41> GI: Other: increasingly distended this morning but soft mild upper abd tenderness <MARCELINO Zhang Last Filed: 08/01/24 07:41> Inspection: Yes distended <MARCELINO Zhang Last Filed: 08/01/24 07:41> Palpation (GI): no guarding and not rigid <MARCELINO Zhang Last Filed: 08/01/24 07:41> Percussion: Yes tympanic to percussion <MARCELINO Zhang Last Filed: 08/01/24 07:41> Skin: General skin exam: no rashes or lesions noted <Neris North PA-C - Last Filed: 08/01/24 07:41> Neuro: General: patient oriented x3 and moves all extremities <Neris North PA-C - Last Filed: 08/01/24 07:41> Objective Data Active Medications Acetaminophen (Acetaminophen 325 Mg Tablet) 650 mg PO Q6H PRN PRN Reason: Pain, Mild 1-3,fever,headache Amlodipine Besylate (Amlodipine Besylate 5 Mg Tablet) 5 mg PO DAILY PRN; Protocol PRN Reason: SBP >170 Atorvastatin Calcium (Atorvastatin Calcium 10 Mg Tablet) 10 mg PO DAILY [facility] Last Admin: 07/31/24 09:28 Dose: 10 mg Documented By: NALDO Erythromycin (Erythromycin Base 250 Mg Tablet) 250 mg PO TIDWM [facility] Last Admin: 07/31/24 17:31 Dose: 250 mg Documented By: NALDO Hydrochlorothiazide (Hydrochlorothiazide 12.5 Mg Tablet) 12.5 mg PO DAILY [facility]; Protocol Last Admin: 07/31/24 09:28 Dose: 12.5 mg Documented By: NALDO Comments: BP re-checked at 0920. Hydroxyzine HCl (Hydroxyzine Hcl 25 Mg Tablet) 25 mg PO Q6H PRN PRN Reason: Anxiety Last Admin: 08/01/24 00:55 Dose: 25 mg Documented By: DAVID Melatonin (Melatonin 3 Mg Tablet) 6 mg PO BEDTIME PRN PRN Reason: Insomnia Last Admin: 07/30/24 22:25 Dose: 6 mg Documented By: BRISSA Morphine Sulfate (Morphine Sulfate 2 Mg/Ml Cartridge) 2 mg IVPUSH Q4H PRN; Protocol PRN Reason: Pain, Severe (Pain Scale 7-10) Last Admin: 07/30/24 18:43 Dose: 2 mg Documented By: ANY Pt Own Medication ( Bimatoprost [Lumigan ] 0.01 % Drops) 1 drop EYE-BOTH BEDTIME [facility] Last Admin: 07/31/24 20:27 Dose: 1 drop Documented By: DAVID Pt Own Medication ( Brinzolamide- Brimonidine [ Simbrinza] 1-0.2 % Drops,Suspension) 1 drop EYE-BOTH BID [facility] Last Admin: 07/31/24 20:19 Dose: 1 drop Documented By: DAVID Ondansetron HCl (Ondansetron Hcl 4 Mg/2 Ml Vial) 4 mg IVPUSH Q8H PRN PRN Reason: Nausea and Vomiting Last Admin: 07/31/24 21:46 Dose: 4 mg Documented By: DAVID Sodium Chloride (0.9 % Sodium Chloride Flush 3 Ml Syringe) 3 ml IVFLUSH QSHIFT [facility] Last Admin: 07/31/24 20:23 Dose: 3 ml Documented By: DAVID <Neris North PA-C - Last Filed: 08/01/24 07:41> Labs CBC & Chem 7: 08/01/24 15:05 08/02/24 06:10 <Neris North PA-C - Last Filed: 08/01/24 07:41> Procedures Date of Service Date of Service: 08/01/24 <Neris North PA-C - Last Filed: 08/01/24 07:41> 08/02/24 <Rory Malcolm MD - Last Filed: 08/02/24 09:16> Progress Note: A&P Assessment and plan (1) Abdominal pain: Status: Acute <Neris North PA-C - Last Filed: 08/01/24 07:41> Assessment and Plan: Some belching Continues to have bowel movements, watery Denies significant abdominal pain Abdomen is soft, benign Looks well overall Likely ileus On erythromycin Out of bed to chair, increase activity GI eval Seen and examined independently <Rory Malcolm MD - Last Filed: 08/02/24 09:16> Assessment and Plan: SBFT does not reveal obstruction although there is note of some delay of passage of contrast into the colon, stomach was full of contrast on 3h imaging. Picture suggestive of ileus. On erythromycin for promility. Continues with nausea, belching but continues with BMs. Abd increasingly distended this morning, but soft. Continue clear liquids as tolerated for now, encouraged OOB/ambulation and increasing activity to promote GI function. Family was requesting GI consult yesterday which has been ordered. <Neris North PA-C - Last Filed: 08/01/24 07:41> Time Spent With Patient Time: Total time managing care of this patient today ____ minutes. <Neris North PA-C - Last Filed: 08/01/24 07:41> Quality Stroke Does the patient have a stroke diagnosis?: No <Neris North PA-C - Last Filed: 08/01/24 07:41> VTE Prior VTE?: No <Neris North PA-C - Last Filed: 08/01/24 07:41> VTE Risk Level:: Medical - low <Neris North PA-C - Last Filed: 08/01/24 07:41> VTE Device Contraindication: Treatment Not Indicated <Neris North PA-C - Last Filed: 08/01/24 07:41> VTE Drug Contraindication: Treatment Not Indicated <Neris North PA-C - Last Filed: 08/01/24 07:41>
[2024-08-01 07:53] VITALS: BP 178/76; PULSE 52; RESP 18; TEMP 36.9; O2SAT 94
[2024-08-01] MEDS: 0.9 % Sodium Chloride Flush 3 ML SYRINGE IVFLUSH ×2 (08:27→21:35)
[2024-08-01] MEDS: hydroCHLOROthiazide 12.5 MG TABLET PO (08:27)
[2024-08-01] MEDS: amLODIPine Besylate 5 MG TABLET PO (08:27)
[2024-08-01] MEDS: Erythromycin Base 250 MG TABLET PO ×2 (08:27→11:51)
[2024-08-01] MEDS: BRINZOLAMIDE BRIMONIDINE 1 EACH EYE-BOTH ×2 (08:27→20:38)
[2024-08-01] MEDS: Atorvastatin Calcium 10 MG TABLET PO (08:27)
--- NOTE | 2024-08-01 09:11 | P.PNIM_ITS ---
Subjective Subjective Date of Service: 08/01/24 Interval History: Reports has been drinking water ?beautifully? today without nausea or vomiting Continues to experience watery diarrhea, though no episodes of incontinence Continues to have bloating Denies abdominal pain Is not passing significant amounts of gas Was out of bed yesterday to walker, though not yet ambulating around room Review of Systems Review of Systems: Yes all other systems are reviewed and are negative Physical Exam 2 Vital Signs: Vital Signs: Last Vital Signs Temp 98.5 F 08/01/24 07:53 Pulse 52 08/01/24 07:53 Resp 18 08/01/24 07:53 BP 178/76 H 08/01/24 07:53 Pulse Ox 94 08/01/24 07:53 O2 Del Method Room Air 08/01/24 07:53 BMI result Body Mass Index 29.5 General: AOx3, no acute distress Resp: CTA bilaterally CVS: S1, S2, RRR GI: +BS, non-tender, soft with moderate distension Skin: Warm, dry Neuro: Cranial nerves II-XII grossly intact bilaterally. Motor grossly intact bilaterally Extremities: No edema Psych: Appropriate affect Objective Data Active Medications Acetaminophen (Acetaminophen 325 Mg Tablet) 650 mg PO Q6H PRN PRN Reason: Pain, Mild 1-3,fever,headache Amlodipine Besylate (Amlodipine Besylate 5 Mg Tablet) 5 mg PO DAILY PRN; Protocol PRN Reason: SBP >170 Last Admin: 08/01/24 08:27 Dose: 5 mg Documented By: IRVIN Atorvastatin Calcium (Atorvastatin Calcium 10 Mg Tablet) 10 mg PO DAILY [facility] Last Admin: 08/01/24 08:27 Dose: 10 mg Documented By: IRVIN Erythromycin (Erythromycin Base 250 Mg Tablet) 250 mg PO TIDWM [facility] Last Admin: 08/01/24 08:27 Dose: 250 mg Documented By: IRVIN Hydrochlorothiazide (Hydrochlorothiazide 12.5 Mg Tablet) 12.5 mg PO DAILY [facility]; Protocol Last Admin: 08/01/24 08:27 Dose: 12.5 mg Documented By: IRVIN Hydroxyzine HCl (Hydroxyzine Hcl 25 Mg Tablet) 25 mg PO Q6H PRN PRN Reason: Anxiety Last Admin: 08/01/24 00:55 Dose: 25 mg Documented By: DAVID Melatonin (Melatonin 3 Mg Tablet) 6 mg PO BEDTIME PRN PRN Reason: Insomnia Last Admin: 07/30/24 22:25 Dose: 6 mg Documented By: BRISSA Morphine Sulfate (Morphine Sulfate 2 Mg/Ml Cartridge) 2 mg IVPUSH Q4H PRN; Protocol PRN Reason: Pain, Severe (Pain Scale 7-10) Last Admin: 07/30/24 18:43 Dose: 2 mg Documented By: ANY Pt Own Medication ( Bimatoprost [Lumigan ] 0.01 % Drops) 1 drop EYE-BOTH BEDTIME [facility] Last Admin: 07/31/24 20:27 Dose: 1 drop Documented By: DAVID Pt Own Medication ( Brinzolamide- Brimonidine [ Simbrinza] 1-0.2 % Drops,Suspension) 1 drop EYE-BOTH BID [facility] Last Admin: 08/01/24 08:27 Dose: 1 drop Documented By: IRVIN Ondansetron HCl (Ondansetron Hcl 4 Mg/2 Ml Vial) 4 mg IVPUSH Q8H PRN PRN Reason: Nausea and Vomiting Last Admin: 07/31/24 21:46 Dose: 4 mg Documented By: DAVID Sodium Chloride (0.9 % Sodium Chloride Flush 3 Ml Syringe) 3 ml IVFLUSH QSHIFT [facility] Last Admin: 08/01/24 08:27 Dose: 3 ml Documented By: IRVIN Labs 07/28/24 05:05 07/30/24 08:06 Assessment and Plan (1) Abdominal pain: Status: Acute Plan Pt is an 89-year-old female with a PMH significant for HTN, HLD, glaucoma, and surgical hx of hysterectomy and appendectomy who was admitted to the hospital under general surgery services for possible SBO. CT of abdomen and pelvis in the ED showed findings consistent with SBO with transition point in left lower quadrant, as well as cholelithiasis with distended gallbladder and biliary dilation. Abdomen ultrasound showed cholelithiasis but no sonographic evidence of cholecystitis. Medical consult for bradycardia and medical management. 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 Quality Stroke Does the patient have a stroke diagnosis?: No VTE Prior VTE?: No VTE Risk Level:: Medical - low VTE Device Contraindication: Treatment Not Indicated VTE Drug Contraindication: Treatment Not Indicated
[2024-08-01 09:47] VITALS: BP 139/65
[2024-08-01 14:00] VITALS: BP 176/60; PULSE 55; RESP 16; TEMP 37.1; O2SAT 93
[2024-08-01 15:14] LABS: Basophils Percent Auto 0.1 % (0-2); Eosinophils Percent Auto 0.6 % (0-4); Hematocrit 36.6 % (37.0-47.0); Hemoglobin 12.7 g/dl (12.0-16.0); Imm Gran Abs Auto 0.14 X10*3/uL (0.00-0.03); Lymphocytes Absolute Auto 1.2 X10*3/uL (1.2-4.9); Lymphocytes Percent Auto 16.9 % (20-40); MANUAL DIFF FLAG SCAN; Mean Corpuscular HGB Conc 34.7 g/dl (31.0-35.0); Mean Corpuscular Hemoglobin 32.1 pg (27.0-33.0); Mean Corpuscular Volume 92.4 fL (80.0-98.0); Mean Platelet Volume 9.8 fL (9.4-12.3); Monocytes Absolute Auto 1.9 X10*3/uL (0.1-1.2); Monocytes Percent Auto 26.5 % (2-11); Neutrophils Absolute Auto 3.8 x10*3/uL (2.0-8.3); Neutrophils Percent Auto 53.9 % (45-73); Platelet Count 229 X10*3/uL (160-400); Red Blood Count 3.96 X10*6/uL (4.20-5.50); Red Cell Distribution Width 13.5 % (11.0-16.0); SCAN SMEAR FLAG 1
--- NOTE | 2024-08-01 15:19 | PM.EVENT ---
Event Note Date of Service: 08/01/24 Event Note: GI Consult-Full note dictated. History from patient, EMR, and her RN. Imp: 89 yo female admitted with an acute SBO based on initial CT. She denies any preceding GI complaints whatsoever. A F/U SB series about 48 hours later showed some dilated loops of SI and slow transit of Barium into the colon, but without obstruction. Her stomach had some retained Barium as well. She remains with some anorexia and belching. Her abdominal exam has some BS, as well as being distended and tympanitic. She is not particularly tender. I suspect this is an ileus s/p her SBO. She has not improved with po Erythromycin. Rec: Recheck some labs today. Recheck plain abdominal xrays. Trial of a suppository. Consider a trial of IV Reglan if no improvement and there is no sign of obstruction, although we'd have to be cautious with Reglan given her age. Based on her ongoing belching, her current exam, and suspected gastric retention she might need a NG tube at some point as well to help with decompression. I don't think she needs any type of endoscopic intervention at this time. D/W patient in detail. I did offer to call her family but she told me that she would rather I didn't. D/W Lizzy Zhang. Thanks Time Spent With Patient Time: Total time managing care of this patient today ____ minutes.
[2024-08-01] MEDS: ondansetron HCL 4 MG/2 ML VIAL IVPUSH (15:31)
[2024-08-01 15:35] LABS: SLIDE REVIEW VERIFIED
[2024-08-01 15:51] LABS: Free T4 (Free Thyroxine) 1.17 ng/dL (0.71-1.85)
[2024-08-01 15:58] LABS: Anion Gap 11 (12-20); Blood Urea Nitrogen 20 mg/dL (9-16); Calcium 9.8 mg/dL (8.4-10.2); Carbon Dioxide 34 mmol/L (22-29); Chloride 99 mmol/L (96-108); Creatinine Clr Calc Pharmacy 49.5; Estimated Glomerular Filt Rate > 60; Glucose Fasting 109 mg/dL (60-99); Potassium 2.8 mmol/L (3.3-5.1); Sodium 141 mmol/L (135-145)
[2024-08-01] MEDS: Lactated Ringers 1,000 ML 100 ML IVCONT (16:05)
[2024-08-01] MEDS: Potassium Chloride/H20 10 MEQ/100 ML PIGGYBACK 100 MEQ IV ×4 (16:06→21:21)
[2024-08-01] MEDS: lisinopriL 5 MG TABLET PO (16:31)
[2024-08-01] MEDS: Famotidine/PF 20 MG/2 ML VIAL IVPUSH (16:38)
[2024-08-01] MEDS: BIMATOPROST 0.01% 1 EACH EYE-BOTH (20:39)
[2024-08-01 20:43] VITALS: BP 144/68; PULSE 62; RESP 18; TEMP 36.7; O2SAT 93
[2024-08-01 20:54] LABS: Anion Gap 13 (12-20); Carbon Dioxide 29 mmol/L (22-29); Chloride 101 mmol/L (96-108); Potassium 2.7 mmol/L (3.3-5.1); Sodium 140 mmol/L (135-145)
[2024-08-01] MEDS: Potassium Chloride Packet 20 MEQ PACKET 40 MEQ PO (22:19)
--- NOTE | 2024-08-02 02:03 | CONS_ITS ---
DATE OF SERVICE: 08/01/2024 REASON FOR CONSULTATION: Abdominal distention and recent small-bowel obstruction. HISTORY OF PRESENT ILLNESS: This has been obtained from the patient, the medical record, and her nurse. The patient is a healthy 89-year-old female who was in her usual state of health up until the morning of admission when she awoke with abdominal pain and abdominal distention. Prior to the day of admission, she had been feeling very well. She had a normal dinner the night before including a salad with chicken and a Cannoli. She lives at an independent living facility and reports that she eats very well and does not have any particular GI complaints on a regular basis. She reports that her bowel movements have been very regular at home without any signs of bleeding. She has enjoyed a good appetite and denies any significant heartburn nor dysphagia. She had not been having any episodes of abdominal pain, abdominal distention, jaundice, nor weight loss. Her last colonoscopy in 2009 revealed only some diverticulosis, small rectal polyp, and internal hemorrhoids. The pathology showed the polyp to be only hyperplastic. At that time given her age and the basically negative colonoscopy, she had not been recommended to have any further screening exams. She denies any known family history of colorectal cancer nor inflammatory bowel disease. Since admission, she did undergo a CAT scan that describes a small-bowel obstruction with a transition point. Over the last 72 hours, she has had some improvement with passage of some liquid stool, but she remains distended and with belching. Small-bowel series showed delayed transit of barium, although it did enter the colon. It looks like her stomach had slow emptying as well. Today, she denies any particular abdominal pain, but is uncomfortable. She thinks things are improved from when she first came in the hospital, but does remain definitely distended compared to her baseline. She has been tolerating just some small amounts of clear liquids thus far. She has nausea and belching, but there has been no vomiting. She denies any melena nor hematochezia. She has been afebrile. She was started on oral erythromycin about 48 hours ago, but has not had any improvement. MEDICATIONS: At home include only atorvastatin, hydrochlorothiazide, and eyedrops. Her medications here in the hospital include acetaminophen, amlodipine, atorvastatin, eyedrops, hydrochlorothiazide, lisinopril, melatonin, morphine p.r.n., and Zofran p.r.n. PAST MEDICAL HISTORY: She has had a hysterectomy with associated appendectomy. She has had knee surgery. Hypertension and hyperlipidemia. She denies any history of AL, diabetes, stroke, lung disease, nor renal disease. SOCIAL HISTORY: She is a . She lives in independent living facility. She does not smoke nor use any significant amounts of alcohol. REVIEW OF SYSTEMS: CONSTITUTIONAL: Prior to becoming ill, she has been feeling very well with good energy and good appetite. SKIN: Without any rashes or pruritus. CARDIAC: No chest pain. PULMONARY: No coughing or hemoptysis. GI: As above. URINARY: No dysuria, no hematuria. NEUROLOGIC: No headache or seizures. PHYSICAL EXAMINATION: GENERAL: The patient is a pleasant, alert, comfortable-appearing female, in no distress. SKIN: Warm and dry. Nonjaundiced. HEENT: Anicteric sclerae. Moist mucous membranes. NECK: Supple. CHEST: Clear. CARDIAC: Normal S1, S2. ABDOMEN: Clearly distended and tympanitic to percussion. Bowel sounds are present but diminished. There is some mild diffuse tenderness but without any rebound, guarding, nor any significant tenderness to palpation. There is no mass. EXTREMITIES: Without edema. NEUROLOGICAL: She is alert and oriented. LABORATORIES: Her most recent CBC on July 28 showed a white count of 10.4, hemoglobin 12.0, MCV 91, and platelets 262,000. Her most recent chemistries from July 30 showed normal electrolytes. BUN 17, creatinine 0.6, and calcium 9.1. The most recent liver profile on July 28 was normal other than a minimally elevated total bilirubin of 1.6. She had a TSH of 3.24. Her CT scan on admission showed gallstones and a common duct of 10 mm but no choledocholithiasis. There is no CT evidence of gallbladder wall thickening or pericholecystic fluid. There are air-fluid levels and dilated small bowel with a transition point in the left lower quadrant. There is no free air. She had an abdominal ultrasound on July 28 describing the gallstones but no evidence of cholecystitis and a bile duct of only 8 mm. She had an upper GI and small-bowel series on July 30 describing delayed transit of barium to the small bowel, but did enter the colon. The stomach had some delayed emptying of barium as well. The small bowel did appear to be somewhat dilated still, but without any obstruction. IMPRESSION: Given the patient's clinical history, she clearly still has some residual ileus ongoing based on her abdominal exam and the clinical history. It appears that the small-bowel obstruction has resolved, which most likely was related to adhesions from previous abdominal surgery. Her remaining ileus may be simply in response to the small-bowel obstruction and the delayed return of normal bowel motility. The other concern would be that of a persistent ongoing partial low-grade obstruction causing her current clinical picture of the distended abdomen and tympany. At this point, she has not responded to oral erythromycin. At this point, I do not think she needs any type of endoscopic intervention. I have ordered a repeat set of laboratories today including electrolytes to rule out any ongoing hypokalemia. I have ordered repeat abdominal x-rays to further assess for any ongoing low-grade small bowel obstruction versus an ileus. I have ordered a Dulcolax suppository just to see if that can perhaps stimulate some motility and passage of gas. If the imaging studies are negative for obstruction and she continues to have problems, I would consider a trial of IV Reglan but proceed cautiously due to her age. Given her ongoing belching, her abdominal exam currently, and suspected gastric retention, she may need a nasogastric tube at some point to help with decompression. I do not think a repeat CT scan is required. In regard to the gallstones, I suspect those are an incidental finding. It does not appear that she has cholecystitis based on the imaging studies. The common duct was borderline and given the normal liver profile, I do not think a MRCP is needed. However, if she has any localizing pain to the right upper quadrant and/or the LFTs rise, then we can always consider a MRCP. I did review all this in detail with the patient. She understood and was comfortable with the plan. I did offer to call her family to review things with them, but she states that she would rather I did not call them at this point. Thank you for this consultation. MD NAVIN Goldstein/CARLOS / [phone] RAJINDER
[2024-08-02 06:00] VITALS: BP 135/63; PULSE 58; RESP 18; TEMP 36.9; O2SAT 95
[2024-08-02 06:48] LABS: Alanine Aminotransferase 23 U/L (0-31); Albumin Level 3.5 g/dL (3.5-5.0); Alkaline Phosphatase 60 U/L (39-117); Anion Gap 11 (12-20); Aspartate Amino Transferase 28 U/L (5-31); Bilirubin Direct 0.6 mg/dL (0.0-0.5); Bilirubin Total 1.8 mg/dL (0.0-1.0); Blood Urea Nitrogen 16 mg/dL (9-16); Calcium 9.1 mg/dL (8.4-10.2); Carbon Dioxide 32 mmol/L (22-29); Chloride 98 mmol/L (96-108); Creatinine Clr Calc Pharmacy 49.5; Estimated Glomerular Filt Rate > 60; Glucose Fasting 103 mg/dL (60-99); Sodium 138 mmol/L (135-145); Total Protein 5.9 g/dL (6.5-8.0)
[2024-08-02] MEDS: Famotidine/PF 20 MG/2 ML VIAL IVPUSH ×2 (08:09→20:33)
[2024-08-02] MEDS: lisinopriL 5 MG TABLET PO (08:09)
[2024-08-02] MEDS: 0.9 % Sodium Chloride Flush 3 ML SYRINGE IVFLUSH ×3 (08:09→23:30)
[2024-08-02] MEDS: Atorvastatin Calcium 10 MG TABLET PO (08:09)
[2024-08-02] MEDS: BRINZOLAMIDE BRIMONIDINE 1 EACH EYE-BOTH ×2 (08:11→20:39)
--- NOTE | 2024-08-02 08:23 | PM.PNGS ---
Subjective Subjective Date of Service: 08/02/24 <Neris North PA-C - Last Filed: 08/02/24 08:30> 08/02/24 <Rory Malcolm MD - Last Filed: 08/02/24 13:32> Interval history: She feels better this morning, less bloated and denies abd pain. Denies nausea or belching. Had two mushy BMs yesterday per nursing. Did not get OOB. <Neris North PA-C - Last Filed: 08/02/24 08:30> Physical Exam Vital Signs: Vital Signs: Last Vital Signs Temp 98.4 F 08/02/24 06:00 Pulse 58 08/02/24 06:00 Resp 18 08/02/24 06:00 BP 135/63 08/02/24 06:00 Pulse Ox 95 08/02/24 06:00 O2 Del Method Room Air 08/02/24 06:00 BMI result Body Mass Index 29.5 <Neris North PA-C - Last Filed: 08/02/24 08:30> Const: General: comfortable, no acute distress and alert <Neris North PA-C - Last Filed: 08/02/24 08:30> Orientation/consciousness: patient oriented x3 <MARCELINO Zhang Last Filed: 08/02/24 08:30> Resp: Effort & Inspection: normal respiratory effort <MARCELINO Zhang Last Filed: 08/02/24 08:30> GI: Other: remains distended, mildly improved <MARCELINO Zhang Last Filed: 08/02/24 08:30> Palpation (GI): Soft to palpation, nontender and no guarding <MARCELINO Zhang Last Filed: 08/02/24 08:30> Percussion: Yes tympanic to percussion <MARCELINO Zhang Last Filed: 08/02/24 08:30> Skin: General skin exam: no rashes or lesions noted <MARCELINO Zhang Last Filed: 08/02/24 08:30> Neuro: General: patient oriented x3 and moves all extremities <Neris North PA-C - Last Filed: 08/02/24 08:30> Objective Data Active Medications Acetaminophen (Acetaminophen 325 Mg Tablet) 650 mg PO Q6H PRN PRN Reason: Pain, Mild 1-3,fever,headache Amlodipine Besylate (Amlodipine Besylate 5 Mg Tablet) 5 mg PO DAILY PRN; Protocol PRN Reason: SBP >170 Last Admin: 08/01/24 08:27 Dose: 5 mg Documented By: RIVIN Atorvastatin Calcium (Atorvastatin Calcium 10 Mg Tablet) 10 mg PO DAILY [facility] Last Admin: 08/02/24 08:09 Dose: 10 mg Documented By: IRVIN Famotidine (Famotidine/Pf 20 Mg/2 Ml Vial) 20 mg IVPUSH BID [facility] Last Admin: 08/02/24 08:09 Dose: 20 mg Documented By: IRVIN Hydrochlorothiazide (Hydrochlorothiazide 12.5 Mg Tablet) 12.5 mg PO DAILY [facility]; Protocol Last Admin: 08/01/24 08:27 Dose: 12.5 mg Documented By: IRVIN Hydroxyzine HCl (Hydroxyzine Hcl 25 Mg Tablet) 25 mg PO Q6H PRN PRN Reason: Anxiety Last Admin: 08/01/24 22:23 Dose: 25 mg Documented By: DAVID Lisinopril (Lisinopril 5 Mg Tablet) 5 mg PO DAILY [facility]; Protocol Last Admin: 08/02/24 08:09 Dose: 5 mg Documented By: IRVIN Melatonin (Melatonin 3 Mg Tablet) 6 mg PO BEDTIME PRN PRN Reason: Insomnia Last Admin: 07/30/24 22:25 Dose: 6 mg Documented By: BRISSA Morphine Sulfate (Morphine Sulfate 2 Mg/Ml Cartridge) 2 mg IVPUSH Q4H PRN; Protocol PRN Reason: Pain, Severe (Pain Scale 7-10) Last Admin: 07/30/24 18:43 Dose: 2 mg Documented By: ANY Pt Own Medication ( Bimatoprost [Lumigan ] 0.01 % Drops) 1 drop EYE-BOTH BEDTIME [facility] Last Admin: 08/01/24 20:39 Dose: 1 drop Documented By: DAVID Pt Own Medication ( Brinzolamide- Brimonidine [ Simbrinza] 1-0.2 % Drops,Suspension) 1 drop EYE-BOTH BID [facility] Last Admin: 08/02/24 08:11 Dose: 1 drop Documented By: IRVIN Ondansetron HCl (Ondansetron Hcl 4 Mg/2 Ml Vial) 4 mg IVPUSH Q8H PRN PRN Reason: Nausea and Vomiting Last Admin: 08/01/24 15:31 Dose: 4 mg Documented By: IRVIN Potassium Chloride (Potassium Chloride Packet 20 Meq Packet) 40 meq PO ONCE ONE Stop: 08/02/24 08:23 Sodium Chloride (0.9 % Sodium Chloride Flush 3 Ml Syringe) 3 ml IVFLUSH QSHIFT [facility] Last Admin: 08/02/24 08:09 Dose: 3 ml Documented By: IRVIN <Neris North PA-C - Last Filed: 08/02/24 08:30> Labs CBC & Chem 7: 08/01/24 15:05 08/02/24 06:10 <Neris North PA-C - Last Filed: 08/02/24 08:30> Labs: Laboratory Results - last 24 hr 08/01/24 08/01/24 08/02/24 15:05 20:23 06:10 MCV 92.4 MCH 32.1 MCHC 34.7 RDW 13.5 Plt Count 229 MPV 9.8 Immature Gran % (Auto) 2.0 H Neut % (Auto) 53.9 Lymph % (Auto) 16.9 L [place] % (Auto) 26.5 H Eos % (Auto) 0.6 Baso % (Auto) 0.1 Lymph # (Auto) 1.2 [place] # (Auto) 1.9 H Eos # (Auto) 0.0 Baso # (Auto) 0.0 Abs Immat Gran (auto) 0.14 H Absolute Neuts (auto) 3.8 Absolute Nucleated RBC 0.000 Nucleated RBC % (auto) 0.0 Smear Tech's Comments VERIFIED Hold Purple Top SEE NOTE Anion Gap 11 L 13 11 L Estim Creat Clear Calc 49.5 49.5 Estimated GFR > 60 > 60 Fasting Glucose 109 H 103 H Calcium 9.8 D 9.1 D Total Bilirubin 1.8 H Direct Bilirubin 0.6 H AST 28 ALT 23 Alkaline Phosphatase 60 Total Protein 5.9 L Albumin 3.5 Free T4 1.17 <Neris North PA-C - Last Filed: 08/02/24 08:30> Procedures Date of Service Date of Service: 08/02/24 <Neris North PA-C - Last Filed: 08/02/24 08:30> 08/02/24 <Rory Malcolm MD - Last Filed: 08/02/24 13:32> Progress Note: A&P Assessment and plan (1) Abdominal pain: Status: Acute <Neris North PA-C - Last Filed: 08/02/24 08:30> Assessment and Plan: Still distended She says she had a good night last night She does state that she feels better this morning Still passing liquid stools She had a KUB last night showing he had had small bowel loops but contrast all the way into the colon No evidence of obstruction on small bowel series Likely some degree of ileus especially with the hypokalemia Correct potassium Encouraged to get out of bed, ambulate Abdomen distended but soft and benign We will keep on clear liquids for now Seen and examined independently <Rory Malcolm MD - Last Filed: 08/02/24 13:32> Assessment and Plan: Clinically not obstructed as patient has had multiple BMs, SBFT showed contrast in colon although some delay. Picture more suggestive of ileus. F/u AXR yesterday ordered by GI shows dilated small bowel with contrast in colon. Abd remains distended this am but soft, maybe mildly improved. Continue clear liquids as tolerated for now. Strongly encouraged OOB/ambulation and increasing activity to promote GI function, will request PT consult to facilitate. Hypokalemia on labs likely due to GI losses, repleted. Seen by GI yesterday who stopped erythromycin. <Neris North PA-C - Last Filed: 08/02/24 08:30> Time Spent With Patient Time: Total time managing care of this patient today ____ minutes. <Neris North PA-C - Last Filed: 08/02/24 08:30> Quality Stroke Does the patient have a stroke diagnosis?: No <MARCELINO Zhang Last Filed: 08/02/24 08:30> VTE Prior VTE?: No <MARCELINO Zhang Last Filed: 08/02/24 08:30> VTE Risk Level:: Medical - low <Neris North PA-C - Last Filed: 08/02/24 08:30> VTE Device Contraindication: Treatment Not Indicated <Neris North PA-C - Last Filed: 08/02/24 08:30> VTE Drug Contraindication: Treatment Not Indicated <Neris North PA-C - Last Filed: 08/02/24 08:30>
[2024-08-02] MEDS: Potassium Chloride Packet 20 MEQ PACKET 40 MEQ PO ×2 (08:45→13:51)
[2024-08-02 09:44] VITALS: BP 135/63; PULSE 58; O2SAT 95
--- NOTE | 2024-08-02 10:03 | HO.PM.IMPN ---
Subjective Subjective Date of Service: 08/02/24 Interval History: Potassium continues to be low at 3.0, though improved from 2.7 in the day prior Reports overall feeling better, tolerating fluids without nausea or vomiting Still experiencing liquid stool though better controlled and with less incontinence Abdomen still distended and bloated Denies passing gas No abdominal pain Denies chest pain/pressure, palpitations No SOB Review of Systems Negative except for that which is stated in the HPI Physical Exam Vital Signs: Vital Signs: Last Vital Signs Temp 98.4 F 08/02/24 06:00 Pulse 58 08/02/24 09:44 Resp 18 08/02/24 06:00 BP 135/63 08/02/24 09:44 Pulse Ox 95 08/02/24 09:44 O2 Del Method Room Air 08/02/24 06:00 BMI result Body Mass Index 29.5 General: AOx3, no acute distress Resp: CTA bilaterally CVS: S1, S2, RRR GI: +BS, abdomen distended, nontender, tympanic to percussion Skin: Warm, dry Neuro: Cranial nerves II-XII grossly intact bilaterally. Motor grossly intact bilaterally Extremities: No edema Psych: Appropriate affect Objective Data Active Medications Acetaminophen (Acetaminophen 325 Mg Tablet) 650 mg PO Q6H PRN PRN Reason: Pain, Mild 1-3,fever,headache Atorvastatin Calcium (Atorvastatin Calcium 10 Mg Tablet) 10 mg PO DAILY [facility] Last Admin: 08/02/24 08:09 Dose: 10 mg Documented By: IRVIN Famotidine (Famotidine/Pf 20 Mg/2 Ml Vial) 20 mg IVPUSH BID [facility] Last Admin: 08/02/24 08:09 Dose: 20 mg Documented By: IRVIN Hydrochlorothiazide (Hydrochlorothiazide 12.5 Mg Tablet) 12.5 mg PO DAILY [facility]; Protocol Last Admin: 08/01/24 08:27 Dose: 12.5 mg Documented By: IRVIN Hydroxyzine HCl (Hydroxyzine Hcl 25 Mg Tablet) 25 mg PO Q6H PRN PRN Reason: Anxiety Last Admin: 08/01/24 22:23 Dose: 25 mg Documented By: DAVID Lisinopril (Lisinopril 5 Mg Tablet) 5 mg PO DAILY [facility]; Protocol Last Admin: 08/02/24 08:09 Dose: 5 mg Documented By: IRVIN Melatonin (Melatonin 3 Mg Tablet) 6 mg PO BEDTIME PRN PRN Reason: Insomnia Last Admin: 07/30/24 22:25 Dose: 6 mg Documented By: BRISSA Morphine Sulfate (Morphine Sulfate 2 Mg/Ml Cartridge) 2 mg IVPUSH Q4H PRN; Protocol PRN Reason: Pain, Severe (Pain Scale 7-10) Last Admin: 07/30/24 18:43 Dose: 2 mg Documented By: ANY Pt Own Medication ( Bimatoprost [Lumigan ] 0.01 % Drops) 1 drop EYE-BOTH BEDTIME [facility] Last Admin: 08/01/24 20:39 Dose: 1 drop Documented By: DAVID Pt Own Medication ( Brinzolamide- Brimonidine [ Simbrinza] 1-0.2 % Drops,Suspension) 1 drop EYE-BOTH BID [facility] Last Admin: 08/02/24 08:11 Dose: 1 drop Documented By: IRVIN Ondansetron HCl (Ondansetron Hcl 4 Mg/2 Ml Vial) 4 mg IVPUSH Q8H PRN PRN Reason: Nausea and Vomiting Last Admin: 08/01/24 15:31 Dose: 4 mg Documented By: IRVIN Potassium Chloride (Potassium Chloride Packet 20 Meq Packet) 40 meq PO ONCE ONE Stop: 08/02/24 14:01 Sodium Chloride (0.9 % Sodium Chloride Flush 3 Ml Syringe) [facility] Last Admin: 08/02/24 08:09 Dose: 3 ml Documented By: IRVIN Labs 08/01/24 15:05 08/02/24 06:10 Labs: Laboratory Results - last 24 hr 08/01/24 08/01/24 08/02/24 15:05 20:23 06:10 MCV 92.4 MCH 32.1 MCHC 34.7 RDW 13.5 Plt Count 229 MPV 9.8 Immature Gran % (Auto) 2.0 H Neut % (Auto) 53.9 Lymph % (Auto) 16.9 L [place] % (Auto) 26.5 H Eos % (Auto) 0.6 Baso % (Auto) 0.1 Lymph # (Auto) 1.2 [place] # (Auto) 1.9 H Eos # (Auto) 0.0 Baso # (Auto) 0.0 Abs Immat Gran (auto) 0.14 H Absolute Neuts (auto) 3.8 Absolute Nucleated RBC 0.000 Nucleated RBC % (auto) 0.0 Smear Tech's Comments VERIFIED Hold Purple Top SEE NOTE Anion Gap 11 L 13 11 L Estim Creat Clear Calc 49.5 49.5 Estimated GFR > 60 > 60 Fasting Glucose 109 H 103 H Calcium 9.8 D 9.1 D Total Bilirubin 1.8 H Direct Bilirubin 0.6 H AST 28 ALT 23 Alkaline Phosphatase 60 Total Protein 5.9 L Albumin 3.5 Free T4 1.17 Assessment and Plan (1) Abdominal pain: Status: Acute Plan Pt is an 89-year-old female with a PMH significant for HTN, HLD, glaucoma, and surgical hx of hysterectomy and appendectomy who was admitted to the hospital under general surgery services for possible SBO. CT of abdomen and pelvis in the ED showed findings consistent with SBO with transition point in left lower quadrant, as well as cholelithiasis with distended gallbladder and biliary dilation. Abdomen ultrasound showed cholelithiasis but no sonographic evidence of cholecystitis. Medical consult for bradycardia and medical management. Question of ileus vs partial SBO Small bowel follow through series on 07/30 negative for obstruction but showed delayed emptying KUB on 08/01 showing air-filled distended loops, though showing oral contrast progressed to distal sigmoid colon Continued bloating Improved diarrhea with less incontinence No abd pain, nausea, or vomiting Overall comfortable and tolerating clear liquids Has not been OOB or ambulating around room/unit Encourage ambulation Plan as per General surgery Hypokalemia Patient's potassium yesterday 2.8 with repeat 2.7, today 3.0 Pt was supplemented with potassium IV and p.o. Continue to supplement with potassium p.o. as necessary Trend labs HTN Patient's BP has been difficult to control the past few days Has been hypertensive as high 181/75 Hydrochlorothiazide on hold for hypokalemia Has been switched to lisinopril 5 mg daily Hydralazine 5 mg IV q.6 p.r.n. 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 Quality Stroke Does the patient have a stroke diagnosis?: No VTE Prior VTE?: No VTE Risk Level:: Medical - low VTE Device Contraindication: Treatment Not Indicated VTE Drug Contraindication: Treatment Not Indicated
--- NOTE | 2024-08-02 10:54 | MHC.CM.PN ---
EMR REVIEWED, PT W/ABD PAIN/SMALL PARTIAL LESA, PER SURGICAL NOTE PT MILDLY IMPROVED, WILL REMAIN ON CLEAR LIQUIDS, P.T. RECOMMENDING HOME PT, REFERRAL PLACED TO [facility] FOR SN/PT, CM WILL CONT TO FOLLOW DC NEEDS.
--- NOTE | 2024-08-02 13:32 | PM.EVENT ---
Event Note Date of Service: 08/02/24 Event Note: Seen on afternoon rounds She does state she feels much better today Continues to have bowel movements, watery Abdomen is soft although with some distention No vomiting KUB last night does show air-fluid levels, oral contrast has passed all the way to the colon We will keep on clear liquids for now Replace potassium Had a long discussion with the daughter at bedside Time Spent With Patient Time: Total time managing care of this patient today ____ minutes.
[2024-08-02 14:00] VITALS: BP 181/75; PULSE 77; RESP 18; TEMP 37; O2SAT 93
--- NOTE | 2024-08-02 15:59 | PC.NURSE ---
Patients blood prtessure is elevated again this evening at 181/75. MD was notified, no new orders at this time.
[2024-08-02] MEDS: cloNIDine HCL 0.1 MG TABLET PO (16:43)
[2024-08-02] MEDS: ondansetron HCL 4 MG/2 ML VIAL IVPUSH (16:43)
[2024-08-02 18:00] VITALS: BP 189/79
[2024-08-02] MEDS: Acetaminophen 325 MG TABLET 650 MG PO (18:01)
[2024-08-02] MEDS: hydrALAZINE HCl 20 MG/ML VIAL 5 MG IVPUSH (18:09)
[2024-08-02 18:32] VITALS: BP 159/68
[2024-08-02] MEDS: BIMATOPROST 0.01% 1 EACH EYE-BOTH (20:33)
[2024-08-02 20:50] VITALS: BP 165/74; PULSE 71; RESP 18; TEMP 36.6; O2SAT 93
[2024-08-03] MEDS: hydrOXYzine HCL 25 MG TABLET PO ×2 (01:22→22:08)
[2024-08-03] MEDS: Melatonin 3 MG TABLET 6 MG PO (01:22)
[2024-08-03 05:19] VITALS: BP 148/67; PULSE 75; RESP 20; TEMP 36.6; O2SAT 92
[2024-08-03 06:04] LABS: Anion Gap 13 (12-20); Blood Urea Nitrogen 17 mg/dL (9-16); Calcium 8.5 mg/dL (8.4-10.2); Carbon Dioxide 26 mmol/L (22-29); Chloride 101 mmol/L (96-108); Creatinine Clr Calc Pharmacy 59.5; Estimated Glomerular Filt Rate > 60; Glucose Fasting 100 mg/dL (60-99); Potassium 3.1 mmol/L (3.3-5.1); Sodium 137 mmol/L (135-145)
--- NOTE | 2024-08-03 07:43 | P.PNGS_ITS ---
Subjective Subjective Date of Service: 08/03/24 Interval history: Patient reports having a good night and denies any abdominal pain. She was able to tolerate the clear liquid diet without increased abdominal pain, nausea or vomiting. She reports a larger stool, black in color today. Physical Exam 2 Vital Signs: Vital Signs: Last Vital Signs Temp 97.8 F 08/03/24 05:19 Pulse 75 08/03/24 05:19 Resp 20 08/03/24 05:19 BP 148/67 H 08/03/24 05:19 Pulse Ox 92 08/03/24 05:19 O2 Del Method Room Air 08/03/24 05:19 BMI result Body Mass Index 29.5 Const: General: no acute distress Nutritional Appearance: well nourished Orientation/consciousness: patient oriented x3 Resp: Effort & Inspection: normal respiratory effort Auscultation: clear to auscultation bilaterally GI: Inspection: Yes distended Palpation (GI): Soft to palpation, nontender, no guarding and not rigid Percussion: Yes tympanic to percussion A uscultation: normal bowel sounds Neuro: General: patient oriented x3 Extrem: General: No edema Objective Data Active Medications Acetaminophen (Acetaminophen 325 Mg Tablet) 650 mg PO Q6H PRN PRN Reason: Pain, Mild 1-3,fever,headache Last Admin: 08/02/24 18:01 Dose: 650 mg Documented By: IRVIN Atorvastatin Calcium (Atorvastatin Calcium 10 Mg Tablet) 10 mg PO DAILY [facility] Last Admin: 08/02/24 08:09 Dose: 10 mg Documented By: IRVIN Famotidine (Famotidine/Pf 20 Mg/2 Ml Vial) 20 mg IVPUSH BID [facility] Last Admin: 08/02/24 20:33 Dose: 20 mg Documented By: EUGENE Hydralazine HCl (Hydralazine Hcl 20 Mg/Ml Vial) 5 mg IVPUSH Q6H PRN; Protocol PRN Reason: SBP >180 Hydrochlorothiazide (Hydrochlorothiazide 12.5 Mg Tablet) 12.5 mg PO DAILY [facility]; Protocol Last Admin: 08/01/24 08:27 Dose: 12.5 mg Documented By: IRVIN Hydroxyzine HCl (Hydroxyzine Hcl 25 Mg Tablet) 25 mg PO Q6H PRN PRN Reason: Anxiety Last Admin: 08/03/24 01:22 Dose: 25 mg Documented By: EUGENE Lisinopril (Lisinopril 5 Mg Tablet) 5 mg PO DAILY [facility]; Protocol Last Admin: 08/02/24 08:09 Dose: 5 mg Documented By: IRVIN Melatonin (Melatonin 3 Mg Tablet) 6 mg PO BEDTIME PRN PRN Reason: Insomnia Last Admin: 08/03/24 01:22 Dose: 6 mg Documented By: EUGENE Morphine Sulfate (Morphine Sulfate 2 Mg/Ml Cartridge) 2 mg IVPUSH Q4H PRN; Protocol PRN Reason: Pain, Severe (Pain Scale 7-10) Last Admin: 07/30/24 18:43 Dose: 2 mg Documented By: ANY Pt Own Medication ( Bimatoprost [Lumigan ] 0.01 % Drops) 1 drop EYE-BOTH BEDTIME [facility] Last Admin: 08/02/24 20:33 Dose: 1 drop Documented By: EUGENE Pt Own Medication ( Brinzolamide- Brimonidine [ Simbrinza] 1-0.2 % Drops,Suspension) 1 drop EYE-BOTH BID [facility] Last Admin: 08/02/24 20:39 Dose: 1 drop Documented By: EUGENE Ondansetron HCl (Ondansetron Hcl 4 Mg/2 Ml Vial) 4 mg IVPUSH Q8H PRN PRN Reason: Nausea and Vomiting Last Admin: 08/02/24 16:43 Dose: 4 mg Documented By: IRVIN Potassium Chloride (Potassium Chloride Er 20 Meq Tab.Er.Prt) 40 meq PO BID [facility] Sodium Chloride (0.9 % Sodium Chloride Flush 3 Ml Syringe) 3 ml IVFLUSH QSHIFT [facility] Last Admin: 08/02/24 23:30 Dose: 3 ml Documented By: EUGENE Labs 08/01/24 15:05 08/03/24 05:18 Labs: Laboratory Results - last 24 hr 08/03/24 05:18 Hold Purple Top SEE NOTE Anion Gap 13 Estim Creat Clear Calc 59.5 Estimated GFR > 60 Fasting Glucose 100 H Calcium 8.5 D Magnesium 2.0 Procedures Date of Service Date of Service: 08/03/24 Progress Note: A&P Assessment and plan (1) Small bowel obstruction: Status: Acute Assessment and Plan: Patient making slow progress, tolerating clear liquid diet without nausea or vomiting. She denies abdominal pain and reports continued bowel movements. We will advance to a full liquid diet today. (2) Hypokalemia: Status: Acute Assessment and Plan: Potassium 3.1 this morning. Supplements ordered by hospitalist team. Time Spent With Patient Time: Total time managing care of this patient today ____ minutes. Quality Stroke Does the patient have a stroke diagnosis?: No VTE Prior VTE?: No VTE Risk Level:: Medical - low VTE Device Contraindication: Treatment Not Indicated VTE Drug Contraindication: Treatment Not Indicated
[2024-08-03 08:42] VITALS: BP 140/58; PULSE 95; RESP 18; TEMP 37; O2SAT 96
[2024-08-03 08:55] VITALS: BP 140/58
[2024-08-03] MEDS: Famotidine/PF 20 MG/2 ML VIAL IVPUSH ×2 (08:55→20:35)
[2024-08-03] MEDS: Atorvastatin Calcium 10 MG TABLET PO (08:55)
[2024-08-03] MEDS: lisinopriL 5 MG TABLET PO (08:55)
[2024-08-03] MEDS: 0.9 % Sodium Chloride Flush 3 ML SYRINGE IVFLUSH ×3 (08:55→20:35)
[2024-08-03] MEDS: Potassium Chloride ER 20 MEQ TAB.ER.PRT 40 MEQ PO ×2 (08:56→20:34)
[2024-08-03] MEDS: BRINZOLAMIDE BRIMONIDINE 1 EACH EYE-BOTH ×2 (08:56→20:34)
[2024-08-03 15:43] VITALS: BP 152/67; PULSE 85; RESP 17; TEMP 37; O2SAT 94
[2024-08-03 19:14] VITALS: BP 141/67; PULSE 86; RESP 18; TEMP 36.2; O2SAT 96
[2024-08-03] MEDS: BIMATOPROST 0.01% 1 EACH EYE-BOTH (20:34)
[2024-08-04] VITALS (12 sets, daily range): BP systolic 134–182; BP diastolic 51–76; PULSE 68–92; RESP 16–19; TEMP 36.3–37.2; O2SAT 94–97
[2024-08-04] MEDS: ondansetron HCL 4 MG/2 ML VIAL IVPUSH (01:52)
[2024-08-04] MEDS: hydrALAZINE HCl 20 MG/ML VIAL 5 MG IVPUSH (03:01)
--- NOTE | 2024-08-04 03:57 | PC.NURSE ---
Patients abdomen is large and distended. She is having liquid bileous bowel movements with excessive belching when she sits up in bed and ambulates. Reports feeling anxious and having really bad heartburn and spitting up bile as night progressed. Blood pressure in the 180's and vomiting with possible aspiration. MD ordered ng tube which was placed. 2 liters brown bileous fluid output upon initial insertion. Patient feeling much better and resting comfortably.
[2024-08-04] MEDS: Dextrose 5 % and 0.45 % NaCl 1,000 ML 80 ML IVCONT ×2 (04:42→21:46)
[2024-08-04 06:06] LABS: Anion Gap 15 (12-20); Blood Urea Nitrogen 15 mg/dL (9-16); Carbon Dioxide 26 mmol/L (22-29); Chloride 101 mmol/L (96-108); Estimated Glomerular Filt Rate > 60; Glucose Random 139 mg/dL (60-115); Potassium 3.6 mmol/L (3.3-5.1); Sodium 138 mmol/L (135-145)
--- NOTE | 2024-08-04 08:22 | PM.PNGS ---
Subjective Subjective Date of Service: 08/04/24 Interval history: Patient had episode of vomiting this morning at approximately 02:00. Nasogastric tube replaced by hospitalist team. Patient feels much improved this morning with no further abdominal pain, nausea or vomiting. She continues to have loose bowel movements. Physical Exam Vital Signs: Vital Signs: Last Vital Signs Temp 97.7 F 08/04/24 07:36 Pulse 78 08/04/24 07:36 Resp 17 08/04/24 07:36 BP 142/67 H 08/04/24 07:36 Pulse Ox 94 08/04/24 07:36 O2 Del Method Room Air 08/04/24 07:36 BMI result Body Mass Index 29.5 Const: General: comfortable Nutritional Appearance: well nourished Orientation/consciousness: patient oriented x3 Resp: Effort & Inspection: normal respiratory effort GI: Palpation (GI): Soft to palpation, nontender, no guarding and not rigid Percussion: Yes tympanic to percussion Skin: Other: Warm, dry, no rash Neuro: General: patient oriented x3 Objective Data Active Medications Acetaminophen (Acetaminophen 325 Mg Tablet) 650 mg PO Q6H PRN PRN Reason: Pain, Mild 1-3,fever,headache Last Admin: 08/02/24 18:01 Dose: 650 mg Documented By: IRVIN Atorvastatin Calcium (Atorvastatin Calcium 10 Mg Tablet) 10 mg PO DAILY [facility] Last Admin: 08/03/24 08:55 Dose: 10 mg Documented By: IVAN Famotidine (Famotidine/Pf 20 Mg/2 Ml Vial) 20 mg IVPUSH BID [facility] Last Admin: 08/03/24 20:35 Dose: 20 mg Documented By: GERALD Hydralazine HCl (Hydralazine Hcl 20 Mg/Ml Vial) 5 mg IVPUSH Q6H PRN; Protocol PRN Reason: SBP >180 Last Admin: 08/04/24 03:01 Dose: 5 mg Documented By: GERALD Hydrochlorothiazide (Hydrochlorothiazide 12.5 Mg Tablet) 12.5 mg PO DAILY [facility]; Protocol Last Admin: 08/01/24 08:27 Dose: 12.5 mg Documented By: IRVIN Hydroxyzine HCl (Hydroxyzine Hcl 25 Mg Tablet) 25 mg PO Q6H PRN PRN Reason: Anxiety Last Admin: 08/03/24 22:08 Dose: 25 mg Documented By: GERALD Dextrose/Sodium Chloride (D51/2ns) 1,000 mls @ 80 mls/hr IVCONT .[id number] [facility] Last Admin: 08/04/24 04:42 Dose: 80 mls/hr Documented By: GERALD Lisinopril (Lisinopril 5 Mg Tablet) 5 mg PO DAILY [facility]; Protocol Last Admin: 08/03/24 08:55 Dose: 5 mg Documented By: IVAN Melatonin (Melatonin 3 Mg Tablet) 6 mg PO BEDTIME PRN PRN Reason: Insomnia Last Admin: 08/03/24 01:22 Dose: 6 mg Documented By: EUGENE Morphine Sulfate (Morphine Sulfate 2 Mg/Ml Cartridge) 2 mg IVPUSH Q4H PRN; Protocol PRN Reason: Pain, Severe (Pain Scale 7-10) Last Admin: 07/30/24 18:43 Dose: 2 mg Documented By: ANY Pt Own Medication ( Bimatoprost [Lumigan ] 0.01 % Drops) 1 drop EYE-BOTH BEDTIME [facility] Last Admin: 08/03/24 20:34 Dose: 1 drop Documented By: GERALD Pt Own Medication ( Brinzolamide- Brimonidine [ Simbrinza] 1-0.2 % Drops,Suspension) 1 drop EYE-BOTH BID [facility] Last Admin: 08/03/24 20:34 Dose: 1 drop Documented By: GERALD Ondansetron HCl (Ondansetron Hcl 4 Mg/2 Ml Vial) 4 mg IVPUSH Q8H PRN PRN Reason: Nausea and Vomiting Last Admin: 08/04/24 01:52 Dose: 4 mg Documented By: GERALD Potassium Chloride (Potassium Chloride Er 20 Meq Tab.Er.Prt) 40 meq PO BID [facility] Last Admin: 08/03/24 20:34 Dose: 40 meq Documented By: GERALD Sodium Chloride (0.9 % Sodium Chloride Flush 3 Ml Syringe) 3 ml IVFLUSH QSHIFT [facility] Last Admin: 08/04/24 07:44 Dose: Not Given Documented By: ANY Non-Admin Reason: IV Running Labs 08/01/24 15:05 08/04/24 05:15 Labs: Laboratory Results - last 24 hr 08/04/24 05:15 Hold Purple Top SEE NOTE Anion Gap 15 Estim Creat Clear Calc 51.0 Estimated GFR > 60 Random Glucose 139 H Calcium 9.0 Procedures Date of Service Date of Service: 08/04/24 Progress Note: A&P Assessment and plan (1) Hypokalemia: Status: Acute (2) Small bowel obstruction: Status: Acute Plan Patient again developed nausea and vomiting after starting full liquids. Nasogastric tube placed this morning and patient feels much improved. She continues to have bowel movements as well. Findings suggestive of continued partial small-bowel obstruction. Hypokalemia improved with normal potassium level this morning. Continue NG tube decompression. May need to consider peripheral nutrition. Time Spent With Patient Time: Total time managing care of this patient today ____ minutes. Quality Stroke Does the patient have a stroke diagnosis?: No VTE Prior VTE?: No VTE Risk Level:: Medical - low VTE Device Contraindication: Treatment Not Indicated VTE Drug Contraindication: Treatment Not Indicated
[2024-08-04 08:37] LABS: Basophils Percent Auto 0.2 % (0-2); Eosinophils Percent Auto 0.1 % (0-4); Hematocrit 36.1 % (37.0-47.0); Hemoglobin 12.2 g/dl (12.0-16.0); Imm Gran Abs Auto 0.28 X10*3/uL (0.00-0.03); Imm Gran Pct Auto 1.9 % (0.0-0.4); Lymphocytes Absolute Auto 0.5 X10*3/uL (1.2-4.9); Lymphocytes Percent Auto 3.6 % (20-40); MANUAL DIFF FLAG SCAN; Mean Corpuscular HGB Conc 33.8 g/dl (31.0-35.0); Mean Corpuscular Hemoglobin 31.7 pg (27.0-33.0); Mean Corpuscular Volume 93.8 fL (80.0-98.0); Monocytes Absolute Auto 3.5 X10*3/uL (0.1-1.2); Monocytes Percent Auto 23.7 % (2-11); Neutrophils Absolute Auto 10.4 x10*3/uL (2.0-8.3); Neutrophils Percent Auto 70.5 % (45-73); Platelet Count 226 X10*3/uL (160-400); Red Blood Count 3.85 X10*6/uL (4.20-5.50); Red Cell Distribution Width 13.7 % (11.0-16.0); SCAN SMEAR FLAG 1; White Blood Count 14.8 X10*3/uL (4.8-10.8)
[2024-08-04 08:56] LABS: SLIDE REVIEW VERIFIED
--- NOTE | 2024-08-04 09:36 | PC.NURSE ---
Attempt IV x 2, unsuccessful, Resource RN Contacted for US Guided IV. Primary RN notified.
[2024-08-04] MEDS: BRINZOLAMIDE BRIMONIDINE 1 EACH EYE-BOTH ×2 (10:25→19:44)
[2024-08-04] MEDS: Morphine Sulfate 2 MG/ML CARTRIDGE IVPUSH ×2 (13:34→19:45)
[2024-08-04] MEDS: iohexoL 350 MG/ML 100 ML INFUS..BTL IV (14:26)
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
[2024-08-04] MEDS: cefoTEtan disodium 2 GM VIAL IVPUSH (17:25)
--- NOTE | 2024-08-04 18:12 | W.PM.OPN ---
Operative Note Operative Note Date of Service: 08/04/24 Narrative: Preoperative diagnosis: Small-bowel obstruction complete Postoperative diagnosis: Small-bowel obstruction complete due to adhesions Procedure: Exploratory laparotomy, lysis of adhesions Surgeon: Andrea Oliver MD Post Anesthesia Nurse: None Anesthesia: General endotracheal Indications for procedure: 89-year-old female patient presenting with complaints of abdominal pain, nausea and vomiting initially seemed to be improving however today began to have more vomiting and abdominal pain. CT abdomen and pelvis revealed a complete bowel obstruction with a possible wall sign suggestive of a twist of the small bowel. Operative findings: Patient found to have an adhesion in the left lower quadrant resulting in a complete obstruction of the small bowel. This was lysed and the remainder of the small bowel found to be normal. There was normal filling of the distal small bowel following the lysis. Specimen: None Estimated blood loss: 2 mL Complications: None Procedure details: Patient was brought to the OR placed in a supine position. After administering general anesthesia, a Dalton catheter was inserted. The patient's abdomen was prepped with ChloraPrep and draped in a sterile fashion. A surgical time-out was called the consent confirmed. Patient received preoperative antibiotics and Venodyne boots were in place. Local anesthesia was infiltrated in the midline below the umbilicus. A lower midline incision was then created over the previous incision down through subcutaneous tissue, through the linea alba into the peritoneum. The above findings were noted. Immediately identified was decompressed small bowel. This was followed proximally to an area of obvious adhesion. This adhesion was brought up through the incision and divided using electrocautery. The remainder of the small bowel was found to be nonadherent. This was followed both proximally and distally and no other obstruction could be identified. The distal small bowel was noted to be filling following the lysis of adhesion. No twist could be found in the mesentery. A small amount of ascitic fluid was aspirated. Wounds were irrigated with saline solution and suctioned dry. Peritoneum was then closed using a running 0 Polysorb suture. Fascia was closed in the midline using a running looped PDS suture. Subcutaneous tissue and dermis were reapproximated using interrupted 3-0 Polysorb sutures. Skin was closed using a running subcuticular 4-0 Polysorb suture. Steri-Strips, 4 x 4 gauze and paper tape were then applied. The patient tolerated the procedure well. Sponge, instrument, and needle counts reported as correct. The patient was transferred to PACU in stable condition.
[2024-08-04] MEDS: Acetaminophen 1,000 MG/100 ML PIGGYBACK 400 MG IV (18:24)
[2024-08-04] MEDS: BIMATOPROST 0.01% 1 EACH EYE-BOTH (19:44)
[2024-08-04] MEDS: Potassium Chloride Packet 20 MEQ PACKET 40 MEQ NG-TUBE (19:47)
[2024-08-04] MEDS: Famotidine/PF 20 MG/2 ML VIAL IVPUSH (19:47)
[2024-08-04] MEDS: 0.9 % Sodium Chloride Flush 3 ML SYRINGE IVFLUSH (19:55)
[2024-08-05 03:35] VITALS: BP 161/72; PULSE 68; RESP 16; TEMP 36.6; O2SAT 95
--- NOTE | 2024-08-05 07:26 | P.PNGS_ITS ---
Subjective Subjective Date of Service: 08/05/24 <Neris North PA-C - Last Filed: 08/05/24 07:31> 08/05/24 <Andrea Oliver MD - Last Filed: 08/05/24 08:40> Interval history: Feels ok this morning, ice is helping pain. Passed flatus once. Has not been OOB yet. Would like velázquez removed. <Neris North PA-C - Last Filed: 08/05/24 07:31> Physical Exam 2 Vital Signs: Vital Signs: Last Vital Signs Temp 98 F 08/05/24 03:35 Pulse 68 08/05/24 03:35 Resp 16 08/05/24 03:35 BP 161/72 H 08/05/24 03:35 Pulse Ox 95 08/05/24 03:35 O2 Del Method Room Air 08/05/24 03:35 BMI result Body Mass Index 29.5 <Neris North PA-C - Last Filed: 08/05/24 07:31> Const: General: comfortable, no acute distress and alert <Neris North PA-C - Last Filed: 08/05/24 07:31> Orientation/consciousness: patient oriented x3 <Neris North PA-C - Last Filed: 08/05/24 07:31> Resp: Effort & Inspection: normal respiratory effort and able to speak in complete sentences <Neris North PA-C - Last Filed: 08/05/24 07:31> GI: Inspection: Yes distended and Yes incision (dressing clean and intact ) <Neris North PA-C - Last Filed: 08/05/24 07:31> Palpation (GI): Soft to palpation, no guarding and not rigid <Neris North PA-C - Last Filed: 08/05/24 07:31> Skin: General skin exam: no rashes or lesions noted <MARCELINO Zhang Last Filed: 08/05/24 07:31> Neuro: General: patient oriented x3 and moves all extremities <Neris North PA-C - Last Filed: 08/05/24 07:31> Objective Data Active Medications Atorvastatin Calcium (Atorvastatin Calcium 10 Mg Tablet) 10 mg PO DAILY [facility] Last Admin: 08/04/24 09:29 Dose: Not Given Documented By: ANY Non-Admin Reason: Physician Held Med Diazepam (Diazepam 10 Mg/2 Ml Cartridge) 5 mg IVPUSH Q12H PRN PRN Reason: Anxiety Famotidine (Famotidine/Pf 20 Mg/2 Ml Vial) 20 mg IVPUSH BID [facility] Last Admin: 08/04/24 19:47 Dose: 20 mg Documented By: RICK Hydralazine HCl (Hydralazine Hcl 20 Mg/Ml Vial) 5 mg IVPUSH Q6H PRN; Protocol PRN Reason: SBP >180 Last Admin: 08/04/24 03:01 Dose: 5 mg Documented By: GERALD Hydrochlorothiazide (Hydrochlorothiazide 12.5 Mg Tablet) 12.5 mg PO DAILY [facility]; Protocol Last Admin: 08/01/24 08:27 Dose: 12.5 mg Documented By: IRVIN Hydroxyzine HCl (Hydroxyzine Hcl 25 Mg Tablet) 25 mg PO Q6H PRN PRN Reason: Anxiety Last Admin: 08/03/24 22:08 Dose: 25 mg Documented By: GERALD Dextrose/Sodium Chloride (D51/2ns) 1,000 mls @ 80 mls/hr IVCONT .[id number] [facility] Last Admin: 08/05/24 05:00 Dose: Not Given Documented By: RICK Non-Admin Reason: previous bag still running Acetaminophen (Ofirmev) 1,000 mg in 100 mls @ 400 mls/hr IV Q6H PRN PRN Reason: Pain, Mild (Pain Scale 1-3) Last Infusion: 08/04/24 19:25 Dose: Infused Documented By: RICK Lisinopril (Lisinopril 5 Mg Tablet) 5 mg PO DAILY [facility]; Protocol Last Admin: 08/04/24 09:29 Dose: Not Given Documented By: ANY Non-Admin Reason: Physician Held Med Melatonin (Melatonin 3 Mg Tablet) 6 mg NG-TUBE BEDTIME PRN PRN Reason: Insomnia Morphine Sulfate (Morphine Sulfate 2 Mg/Ml Cartridge) 2 mg IVPUSH Q3H PRN; Protocol PRN Reason: Pain, Severe (Pain Scale 7-10) Last Admin: 08/04/24 19:45 Dose: 2 mg Documented By: RICK Pt Own Medication ( Bimatoprost [Lumigan ] 0.01 % Drops) 1 drop EYE-BOTH BEDTIME [facility] Last Admin: 08/04/24 19:44 Dose: 1 drop Documented By: RICK Pt Own Medication ( Brinzolamide- Brimonidine [ Simbrinza] 1-0.2 % Drops,Suspension) 1 drop EYE-BOTH BID [facility] Last Admin: 08/04/24 19:44 Dose: 1 drop Documented By: RICK Ondansetron HCl (Ondansetron Hcl 4 Mg/2 Ml Vial) 4 mg IVPUSH Q8H PRN PRN Reason: Nausea and Vomiting Last Admin: 08/04/24 01:52 Dose: 4 mg Documented By: GERALD Potassium Chloride (Potassium Chloride Packet 20 Meq Packet) 40 meq NG-TUBE BID [facility] Last Admin: 08/04/24 19:47 Dose: 40 meq Documented By: RICK Sodium Chloride (0.9 % Sodium Chloride Flush 3 Ml Syringe) 3 ml IVFLUSH QSHIFT [facility] Last Admin: 08/04/24 19:55 Dose: 3 ml Documented By: RCIK <Neris North PA-C - Last Filed: 08/05/24 07:31> Labs CBC & Chem 7: 08/04/24 05:15 08/04/24 05:15 <Neris North PA-C - Last Filed: 08/05/24 07:31> Labs: Laboratory Results - last 24 hr 08/04/24 05:15 MCV 93.8 MCH 31.7 MCHC 33.8 RDW 13.7 Plt Count 226 MPV 10.0 Immature Gran % (Auto) 1.9 H Neut % (Auto) 70.5 Lymph % (Auto) 3.6 L Charles % (Auto) 23.7 H Eos % (Auto) 0.1 Baso % (Auto) 0.2 Lymph # (Auto) 0.5 L Charles # (Auto) 3.5 H Eos # (Auto) 0.0 Baso # (Auto) 0.0 Abs Immat Gran (auto) 0.28 H Absolute Neuts (auto) 10.4 H Absolute Nucleated RBC 0.000 Nucleated RBC % (auto) 0.0 Smear Tech's Comments VERIFIED <Neris North PA-C - Last Filed: 08/05/24 07:31> Procedures Date of Service Date of Service: 08/05/24 <Neris North PA-C - Last Filed: 08/05/24 07:31> 08/05/24 <Andrea Oliver MD - Last Filed: 08/05/24 08:40> Progress Note: A&P Assessment and plan (1) Small bowel obstruction: Status: Acute <Neris North PA-C - Last Filed: 08/05/24 07:31> Assessment and Plan: Had increasing nausea/vomiting over the weekend. CT abdomen and pelvis revealed a complete bowel obstruction with a possible wall sign suggestive of a twist of the small bowel. Now POD #1 s/p ex lap, lysis of adhesion. Patient found to have an adhesion in the left lower quadrant resulting in a complete obstruction of the small bowel. Doing fairly well this morning, NGT continues with high output. VSS. Abd remains distended but soft, dressing clean and intact. Keep NGT in place until output decreases, evidence of GI function. Dc velázquez. Cont IVF for now. Encouraged OOB/ambulation and IS use. Pain control. < Neris North PA-C - Last Filed: 08/05/24 07:31> Had increasing nausea/vomiting over the weekend. CT abdomen and pelvis revealed a complete bowel obstruction with a possible whirl sign suggestive of a twist of the small bowel. Now POD #1 s/p ex lap, lysis of adhesion. Patient found to have an adhesion in the left lower quadrant resulting in a complete obstruction of the small bowel. Doing fairly well this morning, NGT continues with high output. VSS. Abd remains distended but soft, dressing clean and intact. Keep NGT in place until output decreases, evidence of GI function. Dc velázquez. Cont IVF for now. Encouraged OOB/ambulation and IS use. Pain control. Patient seen and examined, agree with the above assessment and plan. Keep NG tube in place until return of bowel function. Reviewed operative findings with the patient today. <Andrea Oliver MD - Last Filed: 08/05/24 08:40> Time Spent With Patient Time: Total time managing care of this patient today ____ minutes. <Neris North PA-C - Last Filed: 08/05/24 07:31> Quality Stroke Does the patient have a stroke diagnosis?: No <Neris North PA-C - Last Filed: 08/05/24 07:31> VTE Prior VTE?: No <Neris North PA-C - Last Filed: 08/05/24 07:31> VTE Risk Level:: Medical - low <Neris North PA-C - Last Filed: 08/05/24 07:31> VTE Device Contraindication: Treatment Not Indicated <Neris North PA-C - Last Filed: 08/05/24 07:31> VTE Drug Contraindication: Treatment Not Indicated <Neris North PA-C - Last Filed: 08/05/24 07:31>
[2024-08-05 08:00] VITALS: BP 142/64; PULSE 77; RESP 16; TEMP 36.2; O2SAT 96
--- NOTE | 2024-08-05 08:22 | HO.POSTANES ---
Post Anesthesia Evaluation Post Anesthesia Evaluation Date of Service: 08/05/24 Vital Signs: Vital Signs Temp Pulse Resp BP Pulse Ox O2 Del Method 08/05/24 08:00 97.1 F 77 16 142/64 H 96 Room Air 08/05/24 03:35 98 F 68 16 161/72 H 95 Room Air 08/04/24 22:30 134/64 Anesthesia: General Endotracheal-GETA Mental Status: Awake Pain Control: Satisfactory Nausea/Vomiting: None Hydration: Adequate Anesthesia-Related Issues: No Anes. Related Issues
[2024-08-05] MEDS: Famotidine/PF 20 MG/2 ML VIAL IVPUSH ×2 (09:00→21:19)
[2024-08-05] MEDS: Potassium Chloride Packet 20 MEQ PACKET 40 MEQ NG-TUBE ×2 (09:01→21:23)
[2024-08-05] MEDS: Dextrose 5 % and 0.45 % NaCl 1,000 ML 80 ML IVCONT (09:17)
[2024-08-05] MEDS: Acetaminophen 1,000 MG/100 ML PIGGYBACK 400 MG IV ×2 (09:19→18:11)
[2024-08-05] MEDS: BRINZOLAMIDE BRIMONIDINE 1 EACH EYE-BOTH ×2 (09:27→21:31)
[2024-08-05 10:17] VITALS: BMI 29.5
--- NOTE | 2024-08-05 10:38 | MHC.CLN ---
NUTRITION CURRENTLY NPO S/P LYSIS OF ADHESIONS. TODAY IS DAY 8 WITH CLEAR LIQUID, FULL LIQUID OR NPO DIET. WILL START PPN TODAY. LABS REQUESTED. COMMUNICATED WITH PHARMACY RECOMMEND PPN AT 40 ML PER HOUR, 41 G PROTEIN, 96 G DEXTROSE, 490 KCALS. REPLETE LYTES NEEDED. CHECK TRIGLYCERIDES. FOLLOW FOR PPN TOLERANCE, LYTES AND DIET ADVANCEMENT. SEE CLINICAL NUTRITION ASSESSMENT 08/05/24.
[2024-08-05 10:52] LABS: Anion Gap 9 (12-20); Blood Urea Nitrogen 13 mg/dL (9-16); Calcium 8.7 mg/dL (8.4-10.2); Carbon Dioxide 29 mmol/L (22-29); Chloride 101 mmol/L (96-108); Creatinine Clr Calc Pharmacy 56.4; Estimated Glomerular Filt Rate > 60; Glucose Random 130 mg/dL (60-115); Magnesium 1.9 mg/dL (1.6-2.6); Phosphorus 2.3 mg/dL (2.7-4.5); Potassium 3.4 mmol/L (3.3-5.1); Sodium 136 mmol/L (135-145)
--- NOTE | 2024-08-05 11:19 | MHC.CM.PN ---
EMR REVIEWED, PT POD1 EXPLORATORY AND LYSIS OF ADHESION W/AN ADHESION CAUSING COMPLETE BOWEL OBSTRUCTION, PT ALSO STARTED ON PPN, NO PLAN FOR DC AT THIS TIME, [facility] FOLLOWING FOR SN/PT, CM WILL CONT TO FOLLOW DC NEEDS.
[2024-08-05 15:58] VITALS: BP 157/69; PULSE 70; RESP 18; TEMP 36.6; O2SAT 97
[2024-08-05 16:15] LABS: Appearance Urine Clear; Color Urine Dark Yellow; Glucose Urine UA Negative (Negative); Leukocyte Esterase Urine Negative (Negative); Nitrite Urine Negative (Negative); Specific Gravity - Urine >= 1.030 (1.005-1.025); UMIC TRIGGER UACC YES; Urine Blood Trace (Negative); Urine Ketones Trace mg/dL (Negative); Urine Protein 30 (1+) mg/dL (Neg-Trace)
--- NOTE | 2024-08-05 16:15 | PC.NURSE ---
Pt reported feeling buring w urination, described it as her usual pre UTI presentation. MD aware and urine sent for testing.
[2024-08-05 16:16] VITALS: BP 157/69; PULSE 70; O2SAT 97
[2024-08-05 16:26] LABS: Bacteria Urine Trace (None Seen); Hyaline Casts Urine 0-2 /LPF (0-2); UACC Culture Trigger YES
--- NOTE | 2024-08-05 18:27 | PC.NURSE ---
Removed velázquez this 9AM per post op orders. Uneventful removal, tip intact with 200ml in velázquez. Pt urinated 200ml on own at 1600.
[2024-08-05 19:28] VITALS: BP 150/70; PULSE 71; RESP 18; TEMP 36.9; O2SAT 96
[2024-08-05] MEDS: Melatonin 3 MG TABLET 6 MG NG-TUBE (21:23)
[2024-08-05] MEDS: Parenteral Nutrition 960 ML 40 ML IV (21:30)
[2024-08-05] MEDS: BIMATOPROST 0.01% 1 EACH EYE-BOTH (21:31)
[2024-08-05] MEDS: 0.9 % Sodium Chloride Flush 3 ML SYRINGE IVFLUSH (21:32)
[2024-08-06 03:18] VITALS: BP 173/75; PULSE 74; RESP 18; TEMP 36.9; O2SAT 95
[2024-08-06 06:17] LABS: Albumin Level 3.1 g/dL (3.5-5.0); Anion Gap 13 (12-20); Blood Urea Nitrogen 11 mg/dL (9-16); Calcium 9.1 mg/dL (8.4-10.2); Carbon Dioxide 25 mmol/L (22-29); Chloride 102 mmol/L (96-108); Creatinine Clr Calc Pharmacy 57.4; Estimated Glomerular Filt Rate > 60; Glucose Random 126 mg/dL (60-115); Magnesium 2.1 mg/dL (1.6-2.6); Phosphorus 2.8 mg/dL (2.7-4.5); Potassium 3.1 mmol/L (3.3-5.1); Sodium 137 mmol/L (135-145); Triglycerides 80 mg/dL (<150)
[2024-08-06] MEDS: Potassium Chloride Packet 20 MEQ PACKET 40 MEQ NG-TUBE ×2 (07:10→21:27)
[2024-08-06] MEDS: Famotidine/PF 20 MG/2 ML VIAL IVPUSH ×2 (07:10→21:25)
[2024-08-06] MEDS: Acetaminophen 1,000 MG/100 ML PIGGYBACK 400 MG IV ×2 (07:10→13:59)
[2024-08-06 07:27] VITALS: BP 165/70; PULSE 76; RESP 18; TEMP 36.2; O2SAT 98
--- NOTE | 2024-08-06 07:50 | P.PNGS_ITS ---
Subjective Subjective Date of Service: 08/06/24 Interval history: Patient reports passing bowels and flatus this morning. Had some abdominal pain in the incision which is improved after taking pain medication. Denies any nausea or vomiting. Physical Exam 2 Vital Signs: Vital Signs: Last Vital Signs Temp 97.2 F 08/06/24 07:27 Pulse 76 08/06/24 07:27 Resp 18 08/06/24 07:27 BP 165/70 H 08/06/24 07:27 Pulse Ox 98 08/06/24 07:27 O2 Del Method Room Air 08/06/24 07:27 BMI result Body Mass Index 29.5 Const: General: healthy appearing and comfortable Nutritional Appearance: w ell nourished Orientation/consciousness: patient oriented x3 Resp: Effort & Inspection: normal respiratory effort GI: Other: Soft and nondistended, incision clean and dry without erythema or discharge. Skin: Other: Warm, dry, no rash Neuro: General: patient oriented x3 Objective Data Active Medications Atorvastatin Calcium (Atorvastatin Calcium 10 Mg Tablet) 10 mg PO DAILY [facility] Last Admin: 08/04/24 09:29 Dose: Not Given Documented By: ANY Non-Admin Reason: Physician Held Med Diazepam (Diazepam 10 Mg/2 Ml Cartridge) 5 mg IVPUSH Q12H PRN PRN Reason: Anxiety Famotidine (Famotidine/Pf 20 Mg/2 Ml Vial) 20 mg IVPUSH BID [facility] Last Admin: 08/06/24 07:10 Dose: 20 mg Documented By: STEPHON Hydralazine HCl (Hydralazine Hcl 20 Mg/Ml Vial) 5 mg IVPUSH Q6H PRN; Protocol PRN Reason: SBP >180 Last Admin: 08/04/24 03:01 Dose: 5 mg Documented By: GERALD Hydrochlorothiazide (Hydrochlorothiazide 12.5 Mg Tablet) 12.5 mg PO DAILY [facility]; Protocol Last Admin: 08/01/24 08:27 Dose: 12.5 mg Documented By: LUCIAME Hydroxyzine HCl (Hydroxyzine Hcl 25 Mg Tablet) 25 mg PO Q6H PRN PRN Reason: Anxiety Last Admin: 08/03/24 22:08 Dose: 25 mg Documented By: GERALD Acetaminophen (Ofirmev) 1,000 mg in 100 mls @ 400 mls/hr IV Q6H PRN PRN Reason: Pain, Mild (Pain Scale 1-3) Last Infusion: 08/06/24 07:34 Dose: Infused Documented By: STEPHON Nutrition (Parenteral) (Parenteral Nutrition) 960 mls @ 40 mls/hr IV .Q24H [facility]; Protocol Stop: 08/06/24 20:59 Last Admin: 08/05/24 21:30 Dose: 40 mls/hr Documented By: JOYCELYN Lisinopril (Lisinopril 5 Mg Tablet) 5 mg PO DAILY [facility]; Protocol Last Admin: 08/04/24 09:29 Dose: Not Given Documented By: ANY Non-Admin Reason: Physician Held Med Melatonin (Melatonin 3 Mg Tablet) 6 mg NG-TUBE BEDTIME PRN PRN Reason: Insomnia Last Admin: 08/05/24 21:23 Dose: 6 mg Documented By: JOYCELYN Morphine Sulfate (Morphine Sulfate 2 Mg/Ml Cartridge) 2 mg IVPUSH Q3H PRN; Protocol PRN Reason: Pain, Severe (Pain Scale 7-10) Last Admin: 08/04/24 19:45 Dose: 2 mg Documented By: RICK Pt Own Medication ( Bimatoprost [Lumigan ] 0.01 % Drops) 1 drop EYE-BOTH BEDTIME [facility] Last Admin: 08/05/24 21:31 Dose: 1 drop Documented By: JOYCELYN Pt Own Medication ( Brinzolamide- Brimonidine [ Simbrinza] 1-0.2 % Drops,Suspension) 1 drop EYE-BOTH BID [facility] Last Admin: 08/05/24 21:31 Dose: 1 drop Documented By: JOYCELYN Ondansetron HCl (Ondansetron Hcl 4 Mg/2 Ml Vial) 4 mg IVPUSH Q8H PRN PRN Reason: Nausea and Vomiting Last Admin: 08/04/24 01:52 Dose: 4 mg Documented By: GERALD Pharmacy Consult (Consult Rx Parenteral Nutrition Ordering) 1 each MISCELLANE DAILY PRN PRN Reason: Consult order Potassium Chloride (Potassium Chloride Packet 20 Meq Packet) 40 meq NG-TUBE BID [facility] Last Admin: 08/06/24 07:10 Dose: 40 meq Documented By: STEPHON Sodium Chloride (0.9 % Sodium Chloride Flush 3 Ml Syringe) 3 ml IVFLUSH QSHIFT [facility] Last Admin: 08/06/24 07:22 Dose: Not Given Documented By: STEPHON Non-Admin Reason: IV Running Labs 08/04/24 05:15 08/06/24 05:21 Labs: Laboratory Results - last 24 hr 08/05/24 08/05/24 08/06/24 10:22 16:00 05:21 Anion Gap 9 L 13 Estim Creat Clear Calc 56.4 57.4 Estimated GFR > 60 > 60 Random Glucose 130 H 126 H Calcium 8.7 9.1 Phosphorus 2.3 L 2.8 Magnesium 1.9 2.1 Albumin 3.0 L 3.1 L Triglycerides 80 Urine Color Dark Yellow Urine Appearance Clear Urine pH 7.0 Ur Specific [place] >= 1.030 H Urine Protein 30 (1+) H Urine Glucose (UA) Negative Urine Ketones Trace Urine Blood Trace H Urine Nitrite Negative Ur Leukocyte Esterase Negative Urine RBC 3-5 H Urine WBC 6-10 Ur Squamous Epith Cells 3-5 Urine Bacteria Trace Hyaline Casts 0-2 Procedures Date of Service Date of Service: 08/06/24 Progress Note: A&P Assessment and plan (1) Small bowel obstruction: Status: Acute (2) S/P laparotomy with lysis of adhesions: Status: Acute Plan Pod 2 following exploratory laparotomy, enterolysis. Patient feels improved today with no nausea or vomiting. Reports a bowel movement and flatus today as well. Plan: Replete potassium Clamp NG tube for 4 hours. Check residuals and 4 hours and if less than 100 remove NG tube. If greater than 100 or if patient develops increased abdominal pain, nausea or vomiting, reconnect to the low intermittent suctioned. Continue PPN until tolerating diet Time Spent With Patient Time: Total time managing care of this patient today ____ minutes. Quality Stroke Does the patient have a stroke diagnosis?: No VTE Prior VTE?: No VTE Risk Level:: Medical - low VTE Device Contraindication: Treatment Not Indicated VTE Drug Contraindication: Treatment Not Indicated
[2024-08-06] MEDS: Throat Lozenge, Medicated LOZENGE 1 LOZENGE MUCOUS MEM ×4 (08:46→21:51)
[2024-08-06] MEDS: BRINZOLAMIDE BRIMONIDINE 1 EACH EYE-BOTH ×2 (08:47→21:27)
--- NOTE | 2024-08-06 10:06 | MHC.CLN ---
F/U REVIEWED LABS, TRIGS 80 DISCUSSED WITH PHARMACY RECOMMEND PPN TO INCREASE TO MAX GOAL RATE 55ML/HR WITH 55G LIPIDS TO PROVIDE 1223 TOTAL KCALS (25KCALS/KG), 56G PROTEIN (1.1G/KG), 132G DEXTROSE REPLETE LYTES NEEDED
--- NOTE | 2024-08-06 12:20 | PC.NURSE ---
This Rn clammed NGT at 0730am , residual checked at 1130 and 500mls of fluid removed , Pt hooked back up to suction per order .
[2024-08-06 15:29] VITALS: BP 173/91; PULSE 61; RESP 18; TEMP 36.7; O2SAT 98
[2024-08-06] MEDS: diazePAM 10 MG/2 ML CARTRIDGE 5 MG IVPUSH (15:42)
[2024-08-06 19:01] VITALS: BP 142/64; PULSE 73; RESP 18; TEMP 36.7; O2SAT 97
[2024-08-06] MEDS: BIMATOPROST 0.01% 1 EACH EYE-BOTH (21:28)
[2024-08-06] MEDS: Melatonin 3 MG TABLET 6 MG NG-TUBE (21:51)
[2024-08-06] MEDS: Parenteral Nutrition 1,320 ML 55 ML IV (22:11)
[2024-08-06] MEDS: 0.9 % Sodium Chloride Flush 3 ML SYRINGE IVFLUSH (23:53)
[2024-08-07 03:00] VITALS: BP 162/76; PULSE 61; RESP 20; TEMP 36.5; O2SAT 94
[2024-08-07 06:42] LABS: Albumin Level 3.1 g/dL (3.5-5.0); Anion Gap 13 (12-20); Blood Urea Nitrogen 9 mg/dL (9-16); Calcium 9.2 mg/dL (8.4-10.2); Carbon Dioxide 25 mmol/L (22-29); Chloride 104 mmol/L (96-108); Creatinine Clr Calc Pharmacy 58.5; Estimated Glomerular Filt Rate > 60; Glucose Random 129 mg/dL (60-115); Magnesium 2.1 mg/dL (1.6-2.6); Phosphorus 3.5 mg/dL (2.7-4.5); Potassium 3.6 mmol/L (3.3-5.1); Sodium 138 mmol/L (135-145)
[2024-08-07] MEDS: 0.9 % Sodium Chloride Flush 3 ML SYRINGE IVFLUSH ×2 (07:29→20:23)
[2024-08-07] MEDS: BRINZOLAMIDE BRIMONIDINE 1 EACH EYE-BOTH ×2 (07:30→20:34)
[2024-08-07] MEDS: Potassium Chloride Packet 20 MEQ PACKET 40 MEQ NG-TUBE ×2 (07:31→20:21)
[2024-08-07] MEDS: Metoclopramide HCl 10 MG/2 ML VIAL 5 MG IVPUSH ×3 (07:31→20:22)
[2024-08-07 07:32] VITALS: BP 167/72; PULSE 77; RESP 18; TEMP 36.7; O2SAT 95
[2024-08-07] MEDS: Famotidine/PF 20 MG/2 ML VIAL IVPUSH ×2 (07:33→20:21)
[2024-08-07] MEDS: Throat Lozenge, Medicated LOZENGE 1 LOZENGE MUCOUS MEM ×2 (07:34→17:07)
--- NOTE | 2024-08-07 07:38 | PM.PNGS ---
Subjective Subjective Date of Service: 08/07/24 <Neris North PA-C - Last Filed: 08/07/24 07:44> 08/07/24 <Andrea Oliver MD - Last Filed: 08/07/24 08:10> Interval history: Slightly confused overnight upon waking but easily reoriented herself. This morning denies any abd pain. Passing flatus and BM yesterday. NGT around 400cc overnight. Ambulated a little yesterday. <Neris North PA-C - Last Filed: 08/07/24 07:44> Physical Exam Vital Signs: Vital Signs: Last Vital Signs Temp 98.1 F 08/07/24 07:32 Pulse 77 08/07/24 07:32 Resp 18 08/07/24 07:32 BP 167/72 H 08/07/24 07:32 Pulse Ox 95 08/07/24 07:32 O2 Del Method Room Air 08/07/24 07:32 BMI result Body Mass Index 29.5 <Neris North PA-C - Last Filed: 08/07/24 07:44> Const: General: comfortable, no acute distress and alert <MARCELINO Zhang Last Filed: 08/07/24 07:44> Orientation/consciousness: patient oriented x3 <MARCELINO Zhang Last Filed: 08/07/24 07:44> Resp: Effort & Inspection: normal respiratory effort <MARCELINO Zhang Last Filed: 08/07/24 07:44> GI: Inspection: Yes distended (mild ) and Yes incision (clean, steris intact ) <Neris North PA-C - Last Filed: 08/07/24 07:44> Palpation (GI): Soft to palpation, Tenderness to palpation present (GI) (mild incisional) and no guarding <MARCELINO Zhang Last Filed: 08/07/24 07:44> Skin: General skin exam: no rashes or lesions noted and no jaundice <MARCELINO Zhang Last Filed: 08/07/24 07:44> Neuro: General: patient oriented x3 and moves all extremities <Neris North PA-C - Last Filed: 08/07/24 07:44> Objective Data Active Medications Atorvastatin Calcium (Atorvastatin Calcium 10 Mg Tablet) 10 mg PO DAILY [facility] Last Admin: 08/04/24 09:29 Dose: Not Given Documented By: ANY Non-Admin Reason: Physician Held Med Benzocaine (Throat Lozenge, Medicated Lozenge) 1 lozenge MUCOUS MEM Q2H PRN PRN Reason: Sore Throat Last Admin: 08/06/24 21:51 Dose: 1 lozenge Documented By: GEOVANNA Diazepam (Diazepam 10 Mg/2 Ml Cartridge) 5 mg IVPUSH Q12H PRN PRN Reason: Anxiety Last Admin: 08/06/24 15:42 Dose: 5 mg Documented By: STEPHON Famotidine (Famotidine/Pf 20 Mg/2 Ml Vial) 20 mg IVPUSH BID [facility] Last Admin: 08/06/24 21:25 Dose: 20 mg Documented By: GEOVANNA Hydralazine HCl (Hydralazine Hcl 20 Mg/Ml Vial) 5 mg IVPUSH Q6H PRN; Protocol PRN Reason: SBP >180 Last Admin: 08/04/24 03:01 Dose: 5 mg Documented By: GERALD Hydrochlorothiazide (Hydrochlorothiazide 12.5 Mg Tablet) 12.5 mg PO DAILY [facility]; Protocol Last Admin: 08/01/24 08:27 Dose: 12.5 mg Documented By: IRVIN Hydroxyzine HCl (Hydroxyzine Hcl 25 Mg Tablet) 25 mg PO Q6H PRN PRN Reason: Anxiety Last Admin: 08/03/24 22:08 Dose: 25 mg Documented By: GERALD Acetaminophen ([facility]) 1,000 mg in 100 mls @ 400 mls/hr IV Q6H PRN PRN Reason: Pain, Mild (Pain Scale 1-3) Last Infusion: 08/06/24 15:35 Dose: Infused Documented By: STEPHON Nutrition (Parenteral) (Parenteral Nutrition) 1,320 mls @ 55 mls/hr IV .Q24H [facility]; Protocol Stop: 08/07/24 20:59 Last Admin: 08/06/24 22:11 Dose: 55 mls/hr Documented By: GEOVANNA Comments: pt had problem with iv Lisinopril (Lisinopril 5 Mg Tablet) 5 mg PO DAILY [facility]; Protocol Last Admin: 08/04/24 09:29 Dose: Not Given Documented By: ANY Non-Admin Reason: Physician Held Med Melatonin (Melatonin 3 Mg Tablet) 6 mg NG-TUBE BEDTIME PRN PRN Reason: Insomnia Last Admin: 08/06/24 21:51 Dose: 6 mg Documented By: GEOVANNA Metoclopramide HCl (Metoclopramide Hcl 10 Mg/2 Ml Vial) 5 mg IVPUSH QID [facility] Morphine Sulfate (Morphine Sulfate 2 Mg/Ml Cartridge) 2 mg IVPUSH Q3H PRN; Protocol PRN Reason: Pain, Severe (Pain Scale 7-10) Last Admin: 08/04/24 19:45 Dose: 2 mg Documented By: RICK Pt Own Medication ( Bimatoprost [Lumigan ] 0.01 % Drops) 1 drop EYE-BOTH BEDTIME [facility] Last Admin: 08/06/24 21:28 Dose: 1 drop Documented By: GEOVANNA Pt Own Medication ( Brinzolamide- Brimonidine [ Simbrinza] 1-0.2 % Drops,Suspension) 1 drop EYE-BOTH BID [facility] Last Admin: 08/06/24 21:27 Dose: 1 drop Documented By: GEOVANNA Pharmacy Consult (Consult Rx Parenteral Nutrition Ordering) 1 each MISCELLANE DAILY PRN PRN Reason: Consult order Potassium Chloride (Potassium Chloride Packet 20 Meq Packet) 40 meq NG-TUBE BID [facility] Last Admin: 08/06/24 21:27 Dose: 40 meq Documented By: GEOVANNA Sodium Chloride (0.9 % Sodium Chloride Flush 3 Ml Syringe) 3 ml IVFLUSH QSHIFT [facility] Last Admin: 08/06/24 23:53 Dose: 3 ml Documented By: GLEN <Neris North PA-C - Last Filed: 08/07/24 07:44> Labs CBC & Chem 7: 08/04/24 05:15 08/07/24 05:54 <Neris North PA-C - Last Filed: 08/07/24 07:44> Labs: Laboratory Results - last 24 hr 08/07/24 05:54 Hold Purple Top SEE NOTE Anion Gap 13 Estim Creat Clear Calc 58.5 Estimated GFR > 60 Random Glucose 129 H Calcium 9.2 Phosphorus 3.5 Magnesium 2.1 Albumin 3.1 L <Neris North PA-C - Last Filed: 08/07/24 07:44> Microbiology Microbiology Results: Microbiology 08/05/24 Unknown Urine Culture - Preliminary Urine clean catch - Clean Catch Midstream No growth to date. <Neris North PA-C - Last Filed: 08/07/24 07:44> Procedures Date of Service Date of Service: 08/07/24 <Neris North PA-C - Last Filed: 08/07/24 07:44> 08/07/24 <Andrea Oliver MD - Last Filed: 08/07/24 08:10> Progress Note: A&P Assessment and plan (1) S/P laparotomy with lysis of adhesions: Status: Acute <Neris North PA-C - Last Filed: 08/07/24 07:44> (2) Small bowel obstruction: Status: Acute <Neris North PA-C - Last Filed: 08/07/24 07:44> Assessment and Plan: POD #3 following exploratory laparotomy, enterolysis. NGT output decreased overnight, continues with evidence of GI function. Abd remains distended but improving. Will clamp NGT again today and check residuals after 4 hours. If less than 100 remove NG tube. If greater than 100 or if patient develops increased abdominal pain, nausea or vomiting during the 4hrs, reconnect to the low intermittent suction. Encouraged OOB/ambution and increasing activity, IS use. Continue PPN until able to advance diet. AM labs reviewed. <Neris North PA-C - Last Filed: 08/07/24 07:44> POD #3 following exploratory laparotomy, enterolysis. NGT output decreased overnight, continues with evidence of GI function. Abd remains distended but improving. Will clamp NGT again today and check residuals after 4 hours. If less than 100 remove NG tube. If greater than 100 or if patient develops increased abdominal pain, nausea or vomiting during the 4hrs, reconnect to the low intermittent suction. Encouraged OOB/ambution and increasing activity, IS use. Continue PPN until able to advance diet. AM labs reviewed. <Andrea Oliver MD - Last Filed: 08/07/24 08:10> Time Spent With Patient Time: Total time managing care of this patient today ____ minutes. <Neris North PA-C - Last Filed: 08/07/24 07:44> Quality Stroke Does the patient have a stroke diagnosis?: No <Neris North PA-C - Last Filed: 08/07/24 07:44> VTE Prior VTE?: No <Neris North PA-C - Last Filed: 08/07/24 07:44> VTE Risk Level:: Medical - low <Neris North PA-C - Last Filed: 08/07/24 07:44> VTE Device Contraindication: Treatment Not Indicated <Neris North PA-C - Last Filed: 08/07/24 07:44> VTE Drug Contraindication: Treatment Not Indicated <Neris North PA-C - Last Filed: 08/07/24 07:44>
[2024-08-07] MEDS: lisinopriL 5 MG TABLET PO (09:18)
--- NOTE | 2024-08-07 09:37 | MHC.CLN ---
F/U PATIENT CONTINUES NPO WITH PPN. REVIEWED LABS. COMMUNICATED WITH PHARMACY. RECOMMEND CONTINUE PPN AT MAX GOAL RATE 55ML/HR WITH 55G LIPIDS TO PROVIDE 1223 TOTAL KCALS (25KCALS/KG CMW), 56G PROTEIN (1.1G/KG CMW), 132G DEXTROSE. REPLETE LYTES NEEDED. FOLLOW FOR DIET ADVANCEMENT AND PPN TOLERANCE.
--- NOTE | 2024-08-07 10:31 | MHC.CM.PN ---
EMR REVIEWED, PT REMAINS W/NG TUBE IN PLACE, DRAINGAGE DECREASING AND PLAN TO CLAMP NG TUBE TODAY, NO PLAN FOR DC AT THIS TIME, [facility] FOLLOWING FOR SN/PT ALTHOUGH PT MAY DECLINE, CM WILL CONT TO FOLLOW DC NEEDS.
[2024-08-07 16:00] VITALS: BP 164/58; PULSE 83; RESP 16; TEMP 36.9; O2SAT 97
[2024-08-07 19:27] VITALS: BP 154/72; PULSE 70; TEMP 36.6; O2SAT 97
[2024-08-07] MEDS: Parenteral Nutrition 1,320 ML 55 ML IV (20:23)
[2024-08-07] MEDS: BIMATOPROST 0.01% 1 EACH EYE-BOTH (20:34)
[2024-08-08 03:13] VITALS: BP 152/70; PULSE 68; RESP 17; TEMP 36.3; O2SAT 97
[2024-08-08 06:32] LABS: Albumin Level 3.2 g/dL (3.5-5.0); Anion Gap 13 (12-20); Blood Urea Nitrogen 11 mg/dL (9-16); Calcium 9.3 mg/dL (8.4-10.2); Carbon Dioxide 23 mmol/L (22-29); Chloride 107 mmol/L (96-108); Creatinine Clr Calc Pharmacy 57.4; Estimated Glomerular Filt Rate > 60; Glucose Random 126 mg/dL (60-115); Magnesium 2.2 mg/dL (1.6-2.6); Phosphorus 3.5 mg/dL (2.7-4.5); Potassium 4.7 mmol/L (3.3-5.1); Sodium 138 mmol/L (135-145)
--- NOTE | 2024-08-08 07:35 | PM.PNGS ---
Subjective Subjective Date of Service: 08/08/24 Interval history: Tolerated clear liquids yesterday. Denies significant abd pain. Continues to pass flatus. Feels like she is about to move her bowels again. Physical Exam Vital Signs: Vital Signs: Last Vital Signs Temp 97.4 F 08/08/24 03:13 Pulse 68 08/08/24 03:13 Resp 17 08/08/24 03:13 BP 152/70 H 08/08/24 03:13 Pulse Ox 97 08/08/24 03:13 O2 Del Method Room Air 08/08/24 03:13 BMI result Body Mass Index 29.5 Const: General: comfortable, no acute distress and alert Resp: Effort & Inspection: normal respiratory effort GI: Inspection: Yes distended (mild, improving ) and Yes incision (clean ) Palpation (GI): Soft to palpation, Tenderness to palpation present (GI) (mild incisional) and no guarding Objective Data Active Medications Atorvastatin Calcium (Atorvastatin Calcium 10 Mg Tablet) 10 mg PO DAILY [facility] Last Admin: 08/04/24 09:29 Dose: Not Given Documented By: ANY Non-Admin Reason: Physician Held Med Benzocaine (Throat Lozenge, Medicated Lozenge) 1 lozenge MUCOUS MEM Q2H PRN PRN Reason: Sore Throat Last Admin: 08/07/24 17:07 Dose: 1 lozenge Documented By: ANY Diazepam (Diazepam 10 Mg/2 Ml Cartridge) 5 mg IVPUSH Q12H PRN PRN Reason: Anxiety Last Admin: 08/06/24 15:42 Dose: 5 mg Documented By: STEPHON Famotidine (Famotidine/Pf 20 Mg/2 Ml Vial) 20 mg IVPUSH BID [facility] Last Admin: 08/07/24 20:21 Dose: 20 mg Documented By: JOE-LAKSHMI Heparin Sodium (Porcine) (Heparin Sodium,Porcine 5,000 Unit/Ml Vial) 5,000 unit SUBCUT Q12H [facility] Hydralazine HCl (Hydralazine Hcl 20 Mg/Ml Vial) 5 mg IVPUSH Q6H PRN; Protocol PRN Reason: SBP >180 Last Admin: 08/04/24 03:01 Dose: 5 mg Documented By: GERALD Hydrochlorothiazide (Hydrochlorothiazide 12.5 Mg Tablet) 12.5 mg PO DAILY [facility]; Protocol Last Admin: 08/01/24 08:27 Dose: 12.5 mg Documented By: IRVIN Hydroxyzine HCl (Hydroxyzine Hcl 25 Mg Tablet) 25 mg PO Q6H PRN PRN Reason: Anxiety Last Admin: 08/03/24 22:08 Dose: 25 mg Documented By: GERALD Acetaminophen (Ofirmev) 1,000 mg in 100 mls @ 400 mls/hr IV Q6H PRN PRN Reason: Pain, Mild (Pain Scale 1-3) Last Infusion: 08/06/24 15:35 Dose: Infused Documented By: STEPHON Nutrition (Parenteral) (Parenteral Nutrition) 1,320 mls @ 55 mls/hr IV .Q24H [facility]; Protocol Stop: 08/08/24 20:59 Last Admin: 08/07/24 20:23 Dose: 55 mls/hr Documented By: JAYDA Lisinopril (Lisinopril 5 Mg Tablet) 5 mg PO DAILY [facility]; Protocol Last Admin: 08/07/24 09:18 Dose: 5 mg Documented By: ANY Melatonin (Melatonin 3 Mg Tablet) 6 mg NG-TUBE BEDTIME PRN PRN Reason: Insomnia Last Admin: 08/06/24 21:51 Dose: 6 mg Documented By: GEOVANNA Morphine Sulfate (Morphine Sulfate 2 Mg/Ml Cartridge) 2 mg IVPUSH Q3H PRN; Protocol PRN Reason: Pain, Severe (Pain Scale 7-10) Last Admin: 08/04/24 19:45 Dose: 2 mg Documented By: RICK Pt Own Medication ( Bimatoprost [Lumigan ] 0.01 % Drops) 1 drop EYE-BOTH BEDTIME [facility] Last Admin: 08/07/24 20:34 Dose: 1 drop Documented By: JAYDA Pt Own Medication ( Brinzolamide- Brimonidine [ Simbrinza] 1-0.2 % Drops,Suspension) 1 drop EYE-BOTH BID [facility] Last Admin: 08/07/24 20:34 Dose: 1 drop Documented By: JAYDA Pharmacy Consult (Consult Rx Parenteral Nutrition Ordering) 1 each MISCELLANE DAILY PRN PRN Reason: Consult order Potassium Chloride (Potassium Chloride Packet 20 Meq Packet) 40 meq NG-TUBE BID [facility] Last Admin: 08/07/24 20:21 Dose: 40 meq Documented By: JAYDA Sodium Chloride (0.9 % Sodium Chloride Flush 3 Ml Syringe) 3 ml IVFLUSH QSHIFT [facility] Last Admin: 08/07/24 20:23 Dose: 3 ml Documented By: JAYDA Labs 08/04/24 05:15 08/08/24 05:28 Labs: Laboratory Results - last 24 hr 08/08/24 05:28 Hold Purple Top SEE NOTE Anion Gap 13 Estim Creat Clear Calc 57.4 Estimated GFR > 60 Random Glucose 126 H Calcium 9.3 Phosphorus 3.5 Magnesium 2.2 Albumin 3.2 L Microbiology Microbiology Results: Microbiology 08/05/24 Unknown Urine Culture - Final Urine clean catch - Clean Catch Midstream No growth. Procedures Date of Service Date of Service: 08/08/24 Progress Note: A&P Assessment and plan (1) S/P laparotomy with lysis of adhesions: Status: Acute (2) Small bowel obstruction: Status: Acute Plan POD #4 following exploratory laparotomy, enterolysis. NGT removed yesterday and is now tolerating clear liquids with GI function. Abd remains softly distended but improving, incision clean. Will advance to full liquids, reeval later for solid food. Cont PPN until oral intake increases. Continue OOB/ambulation and increase activity. Time Spent With Patient Time: Total time managing care of this patient today ____ minutes. Quality Stroke Does the patient have a stroke diagnosis?: No VTE Prior VTE?: No VTE Risk Level:: Medical - low VTE Device Contraindication: Treatment Not Indicated VTE Drug Contraindication: Treatment Not Indicated
[2024-08-08 07:38] VITALS: BP 149/66; PULSE 66; RESP 17; TEMP 36.5; O2SAT 95
[2024-08-08] MEDS: Famotidine/PF 20 MG/2 ML VIAL IVPUSH ×2 (08:16→20:15)
[2024-08-08] MEDS: 0.9 % Sodium Chloride Flush 3 ML SYRINGE IVFLUSH (08:18)
[2024-08-08] MEDS: Potassium Chloride Packet 20 MEQ PACKET 40 MEQ NG-TUBE (08:19)
[2024-08-08] MEDS: lisinopriL 5 MG TABLET PO (08:21)
[2024-08-08] MEDS: Heparin Sodium,Porcine 5,000 UNIT/ML VIAL 5000 UNIT SUBCUT ×2 (08:22→20:15)
[2024-08-08] MEDS: BRINZOLAMIDE BRIMONIDINE 1 EACH EYE-BOTH ×2 (08:25→20:59)
--- NOTE | 2024-08-08 10:29 | MHC.CLN ---
F/U DIET ADVANCED TO F/L PPN TO CONTINUE UNTIL PO IMPROVES PER MD REVIEWED LABS DISCUSSED WITH PHARMACY CONTINUE PPN AT MAX GOAL RATE 55ML/HR WITH 55G LIPIDS PROVIDES 1223 TOTAL KCALS (25KCALS/KG), 56G PROTEIN (1.1G/KG), 132G DEXTROSE REPLETE LYTES NEEDED
[2024-08-08] MEDS: Throat Lozenge, Medicated LOZENGE 1 LOZENGE MUCOUS MEM (12:00)
--- NOTE | 2024-08-08 13:46 | PC.NURSE ---
Pt's son came asking if a patient in another room near the nurses station can be moved so It is quiter for his mother. This patient can't move from the nurses station. Offered to move this patients room and the son said no.
--- NOTE | 2024-08-08 14:03 | PC.NURSE ---
Pts Son to discuss with , if they want to move room to a quite room.
[2024-08-08 14:24] LABS: Appearance Urine Clear; Color Urine Yellow; Glucose Urine UA Negative (Negative); Leukocyte Esterase Urine Negative (Negative); Nitrite Urine Negative (Negative); Specific Gravity - Urine 1.015 (1.005-1.025); Urine Blood Negative (Negative); Urine Ketones Negative (Negative); Urine Protein Negative (Neg-Trace)
[2024-08-08 14:27] LABS: Bacteria Urine None Seen (None Seen); Hyaline Casts Urine 0-2 /LPF (0-2); RBC Urine 0-2 /HPF (0-2); Squamous Epithelial Cell Urine 0-2 /HPF (0-2); WBC Urine 0-5 /HPF (0-5)
[2024-08-08 15:26] VITALS: BP 191/75; PULSE 67; RESP 18; TEMP 36.9; O2SAT 95
--- NOTE | 2024-08-08 15:31 | PC.NURSE ---
Family holding off on moving patient to another room at this moment, 371 offered.
[2024-08-08 15:44] VITALS: BP 162/60
[2024-08-08] MEDS: Magnesium Hydrox/Alum Hydrox 30 ML ORAL.SUSP PO (18:41)
[2024-08-08 19:17] VITALS: BP 142/70; PULSE 75; RESP 18; TEMP 37.2; O2SAT 97
[2024-08-08] MEDS: Potassium Chloride Packet 20 MEQ PACKET 40 MEQ PO (20:05)
[2024-08-08] MEDS: Parenteral Nutrition 1,320 ML 55 ML IV (20:17)
[2024-08-08] MEDS: BIMATOPROST 0.01% 1 EACH EYE-BOTH (20:58)
[2024-08-09 03:05] VITALS: BP 151/78; PULSE 70; RESP 20; TEMP 36.7; O2SAT 97
[2024-08-09 06:27] LABS: Basophils Percent Auto 0.3 % (0-2); Eosinophils Absolute Auto 0.1 X10*3/uL (0.0-0.4); Eosinophils Percent Auto 0.6 % (0-4); Hematocrit 35.6 % (37.0-47.0); Hemoglobin 12.2 g/dl (12.0-16.0); Imm Gran Abs Auto 0.43 X10*3/uL (0.00-0.03); Imm Gran Pct Auto 4.5 % (0.0-0.4); Lymphocytes Absolute Auto 1.8 X10*3/uL (1.2-4.9); Lymphocytes Percent Auto 19.1 % (20-40); MANUAL DIFF FLAG SCAN; Mean Corpuscular HGB Conc 34.3 g/dl (31.0-35.0); Mean Corpuscular Hemoglobin 31.4 pg (27.0-33.0); Mean Corpuscular Volume 91.8 fL (80.0-98.0); Mean Platelet Volume 9.1 fL (9.4-12.3); Monocytes Absolute Auto 1.5 X10*3/uL (0.1-1.2); Monocytes Percent Auto 15.8 % (2-11); Neutrophils Absolute Auto 5.7 x10*3/uL (2.0-8.3); Neutrophils Percent Auto 59.7 % (45-73); Platelet Count 278 X10*3/uL (160-400); Red Blood Count 3.88 X10*6/uL (4.20-5.50); Red Cell Distribution Width 13.5 % (11.0-16.0); SCAN SMEAR FLAG 1; White Blood Count 9.6 X10*3/uL (4.8-10.8)
[2024-08-09 07:05] LABS: Albumin Level 3.5 g/dL (3.5-5.0); Anion Gap 13 (12-20); Blood Urea Nitrogen 10 mg/dL (9-16); Calcium 9.9 mg/dL (8.4-10.2); Carbon Dioxide 22 mmol/L (22-29); Chloride 104 mmol/L (96-108); Creatinine Clr Calc Pharmacy 58.5; Estimated Glomerular Filt Rate > 60; Glucose Random 128 mg/dL (60-115); Magnesium 2.3 mg/dL (1.6-2.6); Phosphorus 3.3 mg/dL (2.7-4.5); Potassium 4.8 mmol/L (3.3-5.1); Sodium 134 mmol/L (135-145)
[2024-08-09 07:14] LABS: SLIDE REVIEW VERIFIED
[2024-08-09 07:35] VITALS: BP 152/64; PULSE 63; RESP 18; TEMP 36.6; O2SAT 96
--- NOTE | 2024-08-09 07:42 | P.PNGS_ITS ---
Subjective Subjective Date of Service: 08/09/24 Interval history: Had some indigestion last night but resolved. Tolerated full liquids without nausea or vomiting. Continues to pass flatus, had BM overnight. Has not been ambulating frequently and has been refusing to to work with PT. Family concerned yesterday about confusion, requested room change as neighbor very loud and wasn't resting. Physical Exam 2 Vital Signs: Vital Signs: Last Vital Signs Temp 97.8 F 08/09/24 07:35 Pulse 63 08/09/24 07:35 Resp 18 08/09/24 07:35 BP 152/64 H 08/09/24 07:35 Pulse Ox 96 08/09/24 07:35 O2 Del Method Room Air 08/09/24 07:35 BMI result Body Mass Index 29.5 Const: General: comfortable, no acute distress and alert O rientation/consciousness: patient oriented x3 Resp: Effort & Inspection: normal respiratory effort GI: Other: remains slightly distended incision clean nontender Palpation (GI): Soft to palpation and no guarding Skin: General skin exam: no rashes or lesions noted Neuro: General: patient oriented x3 and moves all extremities Objective Data Active Medications Al Hydroxide/Mg Hydroxide (Magnesium Hydrox/Alum Hydrox 30 Ml Oral.Susp) 30 ml PO Q6H PRN PRN Reason: Indigestion/heartburn Last Admin: 08/08/24 18:41 Dose: 30 ml Documented By: IGOR Atorvastatin Calcium (Atorvastatin Calcium 10 Mg Tablet) 10 mg PO DAILY [facility] Last Admin: 08/08/24 07:57 Dose: Not Given Documented By: IGOR Non-Admin Reason: Physician Held Med Benzocaine (Throat Lozenge, Medicated Lozenge) 1 lozenge MUCOUS MEM Q2H PRN PRN Reason: Sore Throat Last Admin: 08/08/24 12:00 Dose: 1 lozenge Documented By: RAYA Diazepam (Diazepam 10 Mg/2 Ml Cartridge) 5 mg IVPUSH Q12H PRN PRN Reason: Anxiety Last Admin: 08/06/24 15:42 Dose: 5 mg Documented By: STEPHON Famotidine (Famotidine/Pf 20 Mg/2 Ml Vial) 20 mg IVPUSH BID [facility] Last Admin: 08/08/24 20:15 Dose: 20 mg Documented By: IGOR Heparin Sodium (Porcine) (Heparin Sodium,Porcine 5,000 Unit/Ml Vial) 5,000 unit SUBCUT Q12H [facility] Last Admin: 08/08/24 20:15 Dose: 5,000 unit Documented By: IGOR Hydralazine HCl (Hydralazine Hcl 20 Mg/Ml Vial) 5 mg IVPUSH Q6H PRN; Protocol PRN Reason: SBP >180 Last Admin: 08/04/24 03:01 Dose: 5 mg Documented By: GERALD Hydrochlorothiazide (Hydrochlorothiazide 12.5 Mg Tablet) 12.5 mg PO DAILY [facility]; Protocol Last Admin: 08/08/24 08:28 Dose: Not Given Documented By: IGOR Non-Admin Reason: Physician Held Med Hydroxyzine HCl (Hydroxyzine Hcl 25 Mg Tablet) 25 mg PO Q6H PRN PRN Reason: Anxiety Last Admin: 08/03/24 22:08 Dose: 25 mg Documented By: GERALD Acetaminophen (irmev) 1,000 mg in 100 mls @ 400 mls/hr IV Q6H PRN PRN Reason: Pain, Mild (Pain Scale 1-3) Last Infusion: 08/06/24 15:35 Dose: Infused Documented By: STEPHON Nutrition (Parenteral) (Parenteral Nutrition) 1,320 mls @ 55 mls/hr IV .Q24H [facility]; Protocol Stop: 08/09/24 20:59 Last Admin: 08/08/24 20:17 Dose: 55 mls/hr Documented By: IGOR Lisinopril (Lisinopril 5 Mg Tablet) 5 mg PO DAILY [facility]; Protocol Last Admin: 08/08/24 08:21 Dose: 5 mg Documented By: IGOR Melatonin (Melatonin 3 Mg Tablet) 6 mg PO BEDTIME PRN PRN Reason: Insomnia Morphine Sulfate (Morphine Sulfate 2 Mg/Ml Cartridge) 2 mg IVPUSH Q3H PRN; Protocol PRN Reason: Pain, Severe (Pain Scale 7-10) Last Admin: 08/04/24 19:45 Dose: 2 mg Documented By: RICK Pt Own Medication ( Bimatoprost [Lumigan ] 0.01 % Drops) 1 drop EYE-BOTH BEDTIME [facility] Last Admin: 08/08/24 20:58 Dose: 1 drop Documented By: IGOR Pt Own Medication ( Brinzolamide- Brimonidine [ Simbrinza] 1-0.2 % Drops,Suspension) 1 drop EYE-BOTH BID [facility] Last Admin: 08/08/24 20:59 Dose: 1 drop Documented By: IGOR Ondansetron HCl (Ondansetron Hcl 4 Mg/2 Ml Vial) 4 mg IVPUSH Q8H PRN PRN Reason: Nausea and Vomiting Pharmacy Consult (Consult Rx Parenteral Nutrition Ordering) 1 each MISCELLANE DAILY PRN PRN Reason: Consult order Potassium Chloride (Potassium Chloride Packet 20 Meq Packet) 40 meq PO BID [facility] Last Admin: 08/08/24 20:05 Dose: 40 meq Documented By: IGOR Sodium Chloride (0.9 % Sodium Chloride Flush 3 Ml Syringe) 3 ml IVFLUSH QSHIFT [facility] Last Admin: 08/09/24 00:32 Dose: Not Given Documented By: INDER Non-Admin Reason: IV Running Labs 08/09/24 05:59 08/09/24 05:59 Labs: Laboratory Results - last 24 hr 08/08/24 08/09/24 14:09 05:59 MCV 91.8 MCH 31.4 MCHC 34.3 RDW 13.5 Plt Count 278 MPV 9.1 L Immature Gran % (Auto) 4.5 H Neut % (Auto) 59.7 Lymph % (Auto) 19.1 L [place] % (Auto) 15.8 H Eos % (Auto) 0.6 Baso % (Auto) 0.3 Lymph # (Auto) 1.8 [place] # (Auto) 1.5 H Eos # (Auto) 0.1 Baso # (Auto) 0.0 Abs Immat Gran (auto) 0.43 H Absolute Neuts (auto) 5.7 Absolute Nucleated RBC 0.000 Nucleated RBC % (auto) 0.0 Smear Tech's Comments VERIFIED Anion Gap 13 Estim Creat Clear Calc 58.5 Estimated GFR > 60 Random Glucose 128 H Calcium 9.9 D Phosphorus 3.3 Magnesium 2.3 Albumin 3.5 Urine Color Yellow Urine Appearance Clear Urine pH 8.0 Ur Specific [place] 1.015 Urine Protein Negative Urine Glucose (UA) Negative Urine Ketones Negative Urine Blood Negative Urine Nitrite Negative Ur Leukocyte Esterase Negative Urine RBC 0-2 Urine WBC 0-5 Ur Squamous Epith Cells 0-2 Urine Bacteria None Seen Hyaline Casts 0-2 Procedures Date of Service Date of Service: 08/09/24 Progress Note: A&P Assessment and plan (1) S/P laparotomy with lysis of adhesions: Status: Acute (2) Small bowel obstruction: Status: Acute Plan POD #5 following exploratory laparotomy, enterolysis. Appropriate and oriented this morning. Continues to do well from surgical standpoint with good GI function, benign abd. UA negative for UTI yesterday. AM labs reviewed. Will advance to solid diet. Cont PPN until oral intake increases, likely today as last day. Continue OOB/ambulation and increase activity, encouraged to participate with PT. Case management to see to discuss possible STR. Discharge in next day or so if tolerating diet. Time Spent With Patient Time: Total time managing care of this patient today ____ minutes. Quality Stroke Does the patient have a stroke diagnosis?: No VTE Prior VTE?: No VTE Risk Level:: Medical - low VTE Device Contraindication: Treatment Not Indicated VTE Drug Contraindication: Treatment Not Indicated
[2024-08-09] MEDS: Atorvastatin Calcium 10 MG TABLET PO (08:07)
[2024-08-09] MEDS: lisinopriL 5 MG TABLET PO (08:07)
[2024-08-09] MEDS: hydroCHLOROthiazide 12.5 MG TABLET PO (08:07)
[2024-08-09] MEDS: BRINZOLAMIDE BRIMONIDINE 1 EACH EYE-BOTH ×2 (08:09→21:19)
[2024-08-09] MEDS: Heparin Sodium,Porcine 5,000 UNIT/ML VIAL 5000 UNIT SUBCUT ×2 (08:09→21:16)
[2024-08-09] MEDS: Magnesium Hydrox/Alum Hydrox 30 ML ORAL.SUSP PO (09:06)
[2024-08-09] MEDS: Famotidine 20 MG TABLET PO ×2 (09:13→21:18)
[2024-08-09] MEDS: Potassium Chloride Packet 20 MEQ PACKET 40 MEQ PO ×2 (09:15→21:17)
--- NOTE | 2024-08-09 09:37 | MHC.CLN ---
F/U DIET ADVANCED TO REGULAR TODAY. PPN TO CONTINUE UNTIL PO IMPROVES PER PROVIDER. REVIEWED LABS. COMMUNICATED WITH PHARMACY. CONTINUE PPN AT MAX GOAL RATE 55ML/HR WITH 55G LIPIDS PROVIDES 1223 TOTAL KCALS (25KCALS/KG), 56G PROTEIN (1.1G/KG), 132G DEXTROSE. REPLETE LYTES NEEDED. FOLLOW FOR PO INTAKE AND PLAN OF CARE.
--- NOTE | 2024-08-09 11:05 | MHC.CM.PN ---
Addendum entered by Rupa Dixon RN 08/09/24 13:45: Copy of HCP requested. Family will bring in. Addendum entered by Rupa Dixon RN 08/09/24 11:53: Message sent to PT. Will need updated note. Original Note: Patient not medically cleared for dc at this time, on PPN. Per EMR, potential dc over the weekend. Family requesting STR @ [place] who has offered a bed. Patient may refuse, and go home w/ [facility]. CM will continue to follow.
[2024-08-09 15:33] VITALS: BP 152/64; PULSE 63; O2SAT 96
[2024-08-09 15:43] VITALS: BP 169/74; PULSE 81; RESP 16; TEMP 36.8; O2SAT 96
[2024-08-09] MEDS: 0.9 % Sodium Chloride Flush 3 ML SYRINGE IVFLUSH ×2 (17:05→21:19)
[2024-08-09 19:15] VITALS: BP 148/75; PULSE 67; RESP 17; TEMP 36.2; O2SAT 97
[2024-08-09] MEDS: BIMATOPROST 0.01% 1 EACH EYE-BOTH (21:18)
[2024-08-10 03:19] VITALS: BP 165/75; PULSE 63; RESP 16; TEMP 36; O2SAT 97
[2024-08-10 07:06] VITALS: BP 161/70; PULSE 61; RESP 16; TEMP 36.3; O2SAT 98
[2024-08-10] MEDS: BRINZOLAMIDE BRIMONIDINE 1 EACH EYE-BOTH (08:12)
[2024-08-10] MEDS: hydroCHLOROthiazide 12.5 MG TABLET PO (08:13)
[2024-08-10] MEDS: lisinopriL 5 MG TABLET PO (08:13)
[2024-08-10] MEDS: Famotidine 20 MG TABLET PO (08:14)
[2024-08-10] MEDS: Potassium Chloride Packet 20 MEQ PACKET 40 MEQ PO (08:15)
[2024-08-10] MEDS: 0.9 % Sodium Chloride Flush 3 ML SYRINGE IVFLUSH (08:15)
[2024-08-10] MEDS: Atorvastatin Calcium 10 MG TABLET PO (08:15)
[2024-08-10] MEDS: Heparin Sodium,Porcine 5,000 UNIT/ML VIAL 5000 UNIT SUBCUT (08:16)
[2024-08-10] MEDS: Throat Lozenge, Medicated LOZENGE 1 LOZENGE MUCOUS MEM (08:22)
--- NOTE | 2024-08-10 09:37 | MHC.CM.PN ---
Addendum entered by Monica Schulz 08/10/24 12:24: BLS TRANSPORT BOOKED WITH [facility], PER THEIR AVAILABILITY, IT IS SCHEDULED FOR 1630 Original Note: CM INFORMED PT MEDICALLY READY TO DC CM MET WITH PT TO DISCUSS DC PLANNING PT STATES SHE DOES NOT KNOW IF SHE IS GONG TO STR OR BACK TO [facility] SHE SAYS SHE IS WAITING FOR RECOMMENDATIONS FROM PT AND FAMILY INPUT JACKELYN SPOKE TO PTS DAUGHTER, KASH [phone], SHE REPORTS THEY WOULD LIKE PT TO GO TO STR CM CONFIRMED [facility] HAS A BED FOR HER SHE SAYS SHE WILL ALSO CALL TO CONFIRM, CONTACT NUMBER PROVIDED SHE WILL BE IN AROUND 1230, AND WOULD LIKE TO EXPLAIN THE DCP TO PT BEFORE ANYONE ELSE DOES JACKELYN SPOKE TO THE NURSING CLOTH [facility]LE[facility]ING RANGE TENDER AT [facility], [facility] [phone] X [phone] PER DISCUSSION, BLS TRANSPORT WILL BE ARRANGED FOR 1400 HOURS COPY OF DCS AND MED LIST FAXED TO [facility] AT [phone] THEIR PHARMACY CLOSES EARLY
--- NOTE | 2024-08-10 09:39 | P.PNGS_ITS ---
Subjective Subjective Date of Service: 08/10/24 Interval history: no events overnight tolerating diet good GI function denies pain says she feels well Physical Exam 2 Vital Signs: Vital Signs: Last Vital Signs Temp 97.4 F 08/10/24 07:06 Pulse 61 08/10/24 07:06 Resp 16 08/10/24 07:06 BP 161/70 H 08/10/24 07:06 Pulse Ox 98 08/10/24 07:06 O2 Del Method Room Air 08/10/24 07:06 BMI result Body Mass Index 29.5 Const: General: comfortable and no acute distress Resp: Effort & Inspection: normal respiratory effort Cardio: Rate: regular rate GI: Other: incision clean and dry Palpation (GI): Soft to palpation, not firm, nontender and no guarding Objective Data Active Medications Acetaminophen (Acetaminophen 325 Mg Tablet) 650 mg PO Q6H PRN PRN Reason: Pain, Mild 1-3,fever,headache Al Hydroxide/Mg Hydroxide (Magnesium Hydrox/Alum Hydrox 30 Ml Oral.Susp) 30 ml PO Q6H PRN PRN Reason: Indigestion/heartburn Last Admin: 08/09/24 09:06 Dose: 30 ml Documented By: IGOR Atorvastatin Calcium (Atorvastatin Calcium 10 Mg Tablet) 10 mg PO DAILY [facility] Last Admin: 08/10/24 08:15 Dose: 10 mg Documented By: IRVIN Benzocaine (Throat Lozenge, Medicated Lozenge) 1 lozenge MUCOUS MEM Q2H PRN PRN Reason: Sore Throat Last Admin: 08/10/24 08:22 Dose: 1 lozenge Documented By: IRVIN Diazepam (Diazepam 10 Mg/2 Ml Cartridge) 5 mg IVPUSH Q12H PRN PRN Reason: Anxiety Last Admin: 08/06/24 15:42 Dose: 5 mg Documented By: DABRuddy Famotidine (Famotidine 20 Mg Tablet) 20 mg PO BID [facility] Last Admin: 08/10/24 08:14 Dose: 20 mg Documented By: IRVIN Heparin Sodium (Porcine) (Heparin Sodium,Porcine 5,000 Unit/Ml Vial) 5,000 unit SUBCUT Q12H [facility] Last Admin: 08/10/24 08:16 Dose: 5,000 unit Documented By: IRVIN Hydralazine HCl (Hydralazine Hcl 20 Mg/Ml Vial) 5 mg IVPUSH Q6H PRN; Protocol PRN Reason: SBP >180 Last Admin: 08/04/24 03:01 Dose: 5 mg Documented By: GERALD Hydrochlorothiazide (Hydrochlorothiazide 12.5 Mg Tablet) 12.5 mg PO DAILY [facility]; Protocol Last Admin: 08/10/24 08:13 Dose: 12.5 mg Documented By: IRVIN Hydroxyzine HCl (Hydroxyzine Hcl 25 Mg Tablet) 25 mg PO Q6H PRN PRN Reason: Anxiety Last Admin: 08/03/24 22:08 Dose: 25 mg Documented By: GERALD Lisinopril (Lisinopril 5 Mg Tablet) 5 mg PO DAILY [facility]; Protocol Last Admin: 08/10/24 08:13 Dose: 5 mg Documented By: IRVIN Melatonin (Melatonin 3 Mg Tablet) 6 mg PO BEDTIME PRN PRN Reason: Insomnia Morphine Sulfate (Morphine Sulfate 2 Mg/Ml Cartridge) 2 mg IVPUSH Q3H PRN; Protocol PRN Reason: Pain, Severe (Pain Scale 7-10) Last Admin: 08/04/24 19:45 Dose: 2 mg Documented By: RICK Pt Own Medication ( Bimatoprost [Lumigan ] 0.01 % Drops) 1 drop EYE-BOTH BEDTIME [facility] Last Admin: 08/09/24 21:18 Dose: 1 drop Documented By: DAVID Pt Own Medication ( Brinzolamide- Brimonidine [ Simbrinza] 1-0.2 % Drops,Suspension) 1 drop EYE-BOTH BID [facility] Last Admin: 08/10/24 08:12 Dose: 1 drop Documented By: IRVIN Ondansetron HCl (Ondansetron Hcl 4 Mg/2 Ml Vial) 4 mg IVPUSH Q8H PRN PRN Reason: Nausea and Vomiting Pharmacy Consult (Consult Rx Parenteral Nutrition Ordering) 1 each MISCELLANE DAILY PRN PRN Reason: Consult order Potassium Chloride (Potassium Chloride Packet 20 Meq Packet) 40 meq PO BID [facility] Last Admin: 08/10/24 08:15 Dose: 40 meq Documented By: IRVIN Sodium Chloride (0.9 % Sodium Chloride Flush 3 Ml Syringe) 3 ml IVFLUSH QSHIFT [facility] Last Admin: 08/10/24 08:15 Dose: 3 ml Documented By: IRVIN Labs 08/09/24 05:59 08/09/24 05:59 Procedures Date of Service Date of Service: 08/10/24 Progress Note: A&P Assessment and plan (1) Small bowel obstruction: Status: Acute Assessment and Plan: s/p lysis of adhesion continues to do well as per nursing staff, she has been doing well good GI function looks well abd soft and benign multiple discussions with pt, son Chucky and daughter Yojana ok to discharge to [facility] as short term rehab today they are comfortable with plan 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 Quality Stroke Does the patient have a stroke diagnosis?: No VTE Prior VTE?: No VTE Risk Level:: Medical - low VTE Device Contraindication: Treatment Not Indicated VTE Drug Contraindication: Treatment Not Indicated
--- NOTE | 2024-08-10 13:20 | P.DS_ITS ---
DS: Providers Provider Date of Service: 08/10/24 <Rory Malcolm MD - Last Filed: 08/10/24 09:35> Date of admission: 07/28/24 00:39 <Neris North PA-C - Last Filed: 08/12/24 12:41> Date of discharge: 08/10/24 <Rory Malcolm MD - Last Filed: 08/10/24 09:35> Primary care physician: Wero Cruz MD <Neris North PA-C - Last Filed: 08/12/24 12:41> Attending physician on admission: Yodit Cantu <Neris North PA-C - Last Filed: 08/12/24 12:41> Consults: 07/28/24 11:48 Consult to Hospitalist Routine Comment: [place] [facility] [place] Reason For Exam: bradycardia medical management 07/31/24 15:20 Consult to Gastroenterology Routine Consulting Provider: Deondre Lewis Reason for consultation: ileus/slow GI transit, family requesting consult Has provider been notified: No 08/01/24 14:19 Consult to Gastroenterology Routine Consulting Provider: Deondre Lewis Reason for consultation: Frequent burping, reflux symptoms 08/04/24 07:56 Consult to Hospitalist Routine Comment: Consulting [place] [facility] [place] Reason For Exam: med change after NGT placement <Neris North PA-C - Last Filed: 08/12/24 12:41> Attending physician on discharge: Rory Malcolm <Neris North PA-C - Last Filed: 08/12/24 12:41> DS: Diagnosis Discharge Diagnosis (1) S/P laparotomy with lysis of adhesions: Status: Acute <MARCELINO Zhang Last Filed: 08/12/24 12:41> (2) Small bowel obstruction: Status: Acute <MARCELINO Zhang Last Filed: 08/12/24 12:41> DS: Summary Hospital Course Hospital Course: HPI AT ADMISSION: Pt is an 89-year-old female with a PMH significant for HTN, HLD, glaucoma, and surgical hx of hysterectomy and appendectomy who came to the emergency room complaining of generalized abdominal pain some nausea and feeling a little more constipated. She had a bowel movement the day before she came in which he says is been a little unusual for her. She also felt like she may have been a little dehydrated. She denies eating anything unusual. Here she was mildly diffusely tender the CT scan of her abdomen and pelvis was carried out CT of abdomen and pelvis in the ED showed findings consistent with SBO with transition point in left lower quadrant, as well as cholelithiasis with distended gallbladder and biliary dilation. Abdomen ultrasound showed cholelithiasis but no sonographic evidence of cholecystitis. She has had a hysterectomy in the past as well as her appendix removed at the same time she says. She has never had any symptoms like this before. She is feeling better today but says that the pain still comes in a bit of a wave. She denies passing any gas. HOSPITAL COURSE: She was admitted to the surgical service for further treatment. Plan was to treat her conservatively with NPO IV fluids and close observation. Hospitalist consult was placed for her bradycardia. EKG showed bradycardia without ischemia or AV blaine blocking and as this was chronic and she was asymptomatic they felt no further work up was needed and she was monitored on telemetry. She had slow improvement in her symptoms and SBFT was performed which showed contrast in colon however slow transit. She continued to slowly improve however developed more vomiting and abdominal pain. NGT was inserted. CT abdomen and pelvis was performed which revealed a complete bowel obstruction with a possible wall sign suggestive of a twist of the small bowel. It was therefore recommended to proceed with exploration. On 08/04/14, exploratory laparotomy, lysis of adhesions was performed by Dr. Oliver without complication. She was found to have an adhesion in the left lower quadrant resulting in a complete obstruction of the small bowel. She tolerated the procedure well. She had an uncomplicated recovery course. She was started on PPN as her return of GI function was anticipated to be slow. Her NGT continued with high output the first couple of days despite evidence of GI function and was therefore left in place until POD #3 when it began to downtrend. It was trial clamped and she had low residual and remained asymptomatic and it was therefore removed. She was advanced to clear liquids and further as tolerated. Her activity was increased. PT was consulted. She did develop some confusion after receiving valium. UA was negative for UTI, repeat labs were WNL. This improved. On the day of discharge, she was tolerating a solid diet without nausea or vomiting, had good GI function and was ambulating. She was hemodynamically stable. Her abdomen was benign with mild distention and clean incision. On 08/10/24, she was transferred to short term rehab in stable condition. She is to follow up in the office in 1 week. She was hypertension with resumption of her home HCTZ. Lisinopril 5mg PO daily was added. She is to follow up with her PCP regarding further HTN management. She was seen before discharge on August 10, 2024. She continues to do well with good GI function. She has been arranged to go to [facility] for acute rehab. <MARCELINO Zhang Last Filed: 08/12/24 12:41> Status at Discharge Functional status at discharge: independent ambulation <MARCELINO Zhang Last Filed: 08/12/24 12:41> Time Attestation Discharge Coordination Time (in mins): 50 <MARCELINO Zhang Last Filed: 08/12/24 12:41> Quality: Safe Use of Opioids Does Pt have an Active Cancer Diagnosis on the Problem List?: No <MARCELINO Zhang Last Filed: 08/12/24 12:41> Quality: Stroke Does the patient have a stroke diagnosis?: No <MARCELINO Zhang Last Filed: 08/12/24 12:41> Physical Exam Vital Signs: Vital Signs: Last Vital Signs Temp 97.8 F 08/09/24 07:35 Pulse 63 08/09/24 07:35 Resp 18 08/09/24 07:35 BP 152/64 H 08/09/24 07:35 Pulse Ox 96 08/09/24 07:35 O2 Del Method Room Air 08/09/24 07:35 BMI result Body Mass Index 29.5 <MARCELINO Zhang Last Filed: 08/12/24 12:41> Const: General: comfortable, no acute distress and alert <MARCELINO Zhang Last Filed: 08/12/24 12:41> Resp: Effort & Inspection: normal respiratory effort <MARCELINO Zhang Last Filed: 08/12/24 12:41> GI: Inspection: Yes distended and Yes incision (clean) <Neris North PA-C - Last Filed: 08/12/24 12:41> Palpation (GI): Soft to palpation, nontender, no guarding and not rigid <Neris North PA-C - Last Filed: 08/12/24 12:41> Skin: General skin exam: no rashes or lesions noted <Neris North PA-C - Last Filed: 08/12/24 12:41> Neuro: General: moves all extremities <Neris North PA-C - Last Filed: 08/12/24 12:41> DS: Data Data Completed and Pending Labs on day of discharge: Laboratory Results - last 24 hr 08/08/24 08/09/24 14:09 05:59 WBC 9.6 RBC 3.88 L Hgb 12.2 Hct 35.6 L MCV 91.8 MCH 31.4 MCHC 34.3 RDW 13.5 Plt Count 278 MPV 9.1 L Immature Gran % (Auto) 4.5 H Neut % (Auto) 59.7 Lymph % (Auto) 19.1 L Jay % (Auto) 15.8 H Eos % (Auto) 0.6 Baso % (Auto) 0.3 Lymph # (Auto) 1.8 Jay # (Auto) 1.5 H Eos # (Auto) 0.1 Baso # (Auto) 0.0 Abs Immat Gran (auto) 0.43 H Absolute Neuts (auto) 5.7 Absolute Nucleated RBC 0.000 Nucleated RBC % (auto) 0.0 Smear Tech's Comments VERIFIED Sodium 134 L Potassium 4.8 Chloride 104 Carbon Dioxide 22 Anion Gap 13 BUN 10 Creatinine 0.55 Estim Creat Clear Calc 58.5 Estimated GFR > 60 Random Glucose 128 H Calcium 9.9 D Phosphorus 3.3 Magnesium 2.3 Albumin 3.5 Urine Color Yellow Urine Appearance Clear Urine pH 8.0 Ur Specific Henley 1.015 Urine Protein Negative Urine Glucose (UA) Negative Urine Ketones Negative Urine Blood Negative Urine Nitrite Negative Ur Leukocyte Esterase Negative Urine RBC 0-2 Urine WBC 0-5 Ur Squamous Epith Cells 0-2 Urine Bacteria None Seen Hyaline Casts 0-2 <Neris North PA-C - Last Filed: 08/12/24 12:41> Discharge Plan Discharge Anticipated Discharge Date/Time: 08/10/24 12:58 <Neris North PA-C - Last Filed: 08/12/24 12:41> Patient Disposition: Xfer SNF <Neris North PA-C - Last Filed: 08/12/24 12:41> Discharge Diagnosis: SBO, s/p exploratory laparotomy <Neris North PA-C - Last Filed: 08/12/24 12:41> SBO, s/p exploratory laparotomy <Rory Malcolm MD - Last Filed: 08/10/24 09:35> Referrals: Jean MONTERROSO [Outside] - 1 Day Seym[facility] Martinez [Outside] - 1 Week Wero Cruz MD [Primary Care Provider] - 1 Week Andrae Oliver MD [Physician] - 1 Week <Neris North PA-C - Last Filed: 08/12/24 12:41> Discharge Medications: New lisinopril 5 mg Tablet 5 mg PO DAILY Qty: 60 0RF Protocol: Hold for SBP< HOLD for SBP < : 90 tramadol 50 mg tablet 50 mg PO Q6H PRN (Reason: pain) Qty: 15 0RF hydroxyzine HCl 25 mg tablet 25 mg PO TID PRN (Reason: anxiety) Qty: 90 0RF Rx Instructions: Take one tablet up to three times daily for anxiety/restlessness. Continued atorvastatin 10 mg tablet 10 mg PO DAILY hydrochlorothiazide 12.5 mg capsule 12.5 mg PO DAILY Lumigan 0.01 % drops 1 drp ophthalmic (eye) BEDTIME Simbrinza 1-0.2 % drops,suspension 1 drp ophthalmic (eye) BID <MARCELINO Zhang Last Filed: 08/12/24 12:41> Discharge Orders: Discharge Order (Routine); Ordered 08/10/24 Ordered By: Rory Malcolm <MARCELINO Zhang Last Filed: 08/12/24 12:41> Diet: Advance to usual diet <MARCELINO Zhang Last Filed: 08/12/24 12:41> Advance to usual diet <Rory Malcolm MD - Last Filed: 08/10/24 09:35> Activity on Discharge: As tolerated <Neris North PA-C - Last Filed: 08/12/24 12:41> As tolerated <Rory Malcolm MD - Last Filed: 08/10/24 09:35> Stand Alone Forms: Patient Portal Discharge page <MARCELINO Zhang Last Filed: 08/12/24 12:41> Print Language: Wolof <Neris North PA-C - Last Filed: 08/12/24 12:41> Activity Restrictions/Additional Instructions: If the incision area is tender, you may apply an ice pack for short intervals (No more than 20 minutes on, followed by at least 20 minutes off). Do not apply heat. Do not use creams, lotions, or topical antibiotics. Ok to shower. No tub bath. You have steri strips (small white cloth strips) covering your incision- these will fall off ~1 week. No heavy lifting (>10lbs) or strenuous activity! Follow up in office with Dr. Oliver in 2 weeks. ([phone]) Follow up with your PCP regarding further blood pressure management. Call Your Doctor If: -Your temperature exceeds 101.5? F -You experience excessive pain or swelling -You have an unexpected reaction to medication -You have excessive bleeding -You experience continued vomiting/nausea -Your incision begins to separate -Your incision shows signs of infection such as increased redness, swelling, excessive pain, drainage (light blood or clear fluid is normal) or heat <Neris North PA-C - Last Filed: 08/12/24 12:41> Care Plan Goals: Return to baseline health and resume normal activities. <Neris North PA-C - Last Filed: 08/12/24 12:41> Health Concerns: SBO hypertension <MARCELINO Zhang Last Filed: 08/12/24 12:41> Plan of Treatment: Follow up in office with Dr. Oliver in 1 week Follow up with PCP regarding BP control <MARCELINO Zhang Last Filed: 08/12/24 12:41> Assessment: Improved, doing well post op <Neris North PA-C - Last Filed: 08/12/24 12:41> Discharge Date/Time: 08/10/24 16:49 <Neris North PA-C - Last Filed: 08/12/24 12:41>
[2024-08-10 14:48] VITALS: BP 135/60; PULSE 65; RESP 17; TEMP 36.4; O2SAT 97
[2024-08-10 16:29] VITALS: BP 129/60; PULSE 73; RESP 18; TEMP 36.2; O2SAT 98
== END 2024-08-10 16:49 | disposition skilled nursing facility (03) | DRG 337 ==
LOC: HO.ED 20:42 → HO.EDOVER 07-28 00:44 → HO.S3 07-28 08:17
PROVIDERS: Internal Medicine; Nurse Practitioner Acute Care; Physician Assistant; Physician Assistant Surgical; Student in an Organized Health Care Education/Training Program; Surgery; Admitting Provider Surgery; Emergency Provider Emergency Medicine; PCP Internal Medicine; Visit Provider Surgery
PROC: 0DN80ZZ Release Small Intestine, Open Approach (ICD-10-PCS; CPT 49000; principal; 2024-08-04 17:00)
DX: K56.52 Intestinal adhesions [bands] with complete obstruction (principal); I10 Essential (primary) hypertension; R00.1 Bradycardia, unspecified; E87.6 Hypokalemia; H40.9 Unspecified glaucoma; K59.00 Constipation, unspecified; K56.7 Ileus, unspecified; E78.5 Hyperlipidemia, unspecified; Z87.891 Personal history of nicotine dependence; Z79.899 Other long term (current) drug therapy
CPT/HCPCS: 36415; 70450; 71045; 74021; 74177; 74250; 76705; 80048; 80051; 80053; 80076; 81001; 82040; 83690; 83735; 84100; 84439; 84443; 84478; 84484; 85025; 85027; 87086; 93005; 97162; 97530; 99285; J0131; J0360; J1308; J1644; J1885; J2003; J2270; J2405; J2704; J2765; J2795; J3010; J3360; J3480; J7120; Q9967

== ENCOUNTER → 2024-07-27 18:22 | Outpatient (BNV) | payer MEDICARE, SELFPAY | PROVIDERS: Admitting Provider Surgery; Emergency Provider Emergency Medicine; PCP Internal Medicine; Visit Provider Internal Medicine | DX: I45.10 Unspecified right bundle-branch block (principal); I49.9 Cardiac arrhythmia, unspecified; R00.1 Bradycardia, unspecified | CPT/HCPCS: 93010 ==

== ENCOUNTER → 2024-07-27 18:37 | Outpatient (BNV) | payer MEDICARE, SELFPAY | PROVIDERS: Emergency Provider Emergency Medicine; PCP Internal Medicine; Visit Provider Radiology Diagnostic Radiology | DX: K80.20 Calculus of gallbladder without cholecystitis without obstruction (principal) | CPT/HCPCS: 76705 ==

== ENCOUNTER 2024-07-28 00:39 | Outpatient (BNV) | payer MEDICARE, SELFPAY | END 2024-07-30 08:24 | PROVIDERS: Admitting Provider Surgery; Emergency Provider Emergency Medicine; PCP Internal Medicine; Visit Provider Radiology Diagnostic Radiology | DX: K56.609 Unspecified intestinal obstruction, unspecified as to partial versus complete obstruction (principal) | CPT/HCPCS: 74250 ==

== ENCOUNTER 2024-07-28 00:39 | Outpatient (BNV) | payer MEDICARE, SELFPAY | END 2024-08-04 04:00 | PROVIDERS: Admitting Provider Surgery; Emergency Provider Emergency Medicine; PCP Internal Medicine; Visit Provider Radiology Diagnostic Radiology | DX: K56.609 Unspecified intestinal obstruction, unspecified as to partial versus complete obstruction (principal); J98.11 Atelectasis | CPT/HCPCS: 74177 ==

== ENCOUNTER 2024-07-28 00:39 | Outpatient (BNV) | payer MEDICARE, SELFPAY | END 2024-08-01 17:30 | PROVIDERS: Admitting Provider Surgery; Emergency Provider Emergency Medicine; PCP Internal Medicine; Visit Provider Radiology Diagnostic Radiology | DX: R14.0 Abdominal distension (gaseous) (principal) | CPT/HCPCS: 74021 ==

== ENCOUNTER → 2024-07-28 00:39 | Outpatient (BNV) | payer MEDICARE, SELFPAY | PROVIDERS: Admitting Provider Surgery; Emergency Provider Emergency Medicine; PCP Internal Medicine; Visit Provider Surgery | DX: K56.609 Unspecified intestinal obstruction, unspecified as to partial versus complete obstruction (principal); R10.84 Generalized abdominal pain | CPT/HCPCS: 99223; 99232; 99499 ==

== ENCOUNTER → 2024-07-28 00:39 | Outpatient (BNV) | payer MEDICARE, SELFPAY | PROVIDERS: Admitting Provider Surgery; Emergency Provider Emergency Medicine; PCP Internal Medicine; Visit Provider Student in an Organized Health Care Education/Training Program | DX: R10.84 Generalized abdominal pain (principal) | CPT/HCPCS: 99222; 99232; 99233 ==

== ENCOUNTER 2024-08-27 10:25 | Outpatient (AMB) | payer MEDICARE, SELFPAY ==
--- NOTE | 2024-08-27 10:40 | MHC.OFFVIS ---
Vital Signs 08/27/24 10:46 Weight 148 lb BP 134/63 Blood Pressure Location Rt brachial Position Sitting Pulse 72 Intake Visit Reasons: s/p colon Intake Note: Patient here 1m s/p exploratory laparotomy, lysis of adhesions. Reports incision healing well. Patient c/o: denies abdominal pain. ? diarrhea, constipation. Surgery: 08-04-2024 Associate Partner Required: No Accompanied by: son Deondre Wood Allergies No Known Allergies [No Known Allergies*] Allergy (Unknown, Verified 08/27/24 10:40) HPI Comments Details: Beranrdino Wood is an 89 year old female who underwent exploratory laparotomy, lysis of adhesions for nonresolving SBO on 08/04/24. She tolerated the procedure well but had a slow recovery course and was sent to [facility] for further convalescence following. She presents today with her son and reports feeling well. She stayed at [facility] for a week. She has been back home at [place] with home OT and VNA and was just discharged from OT services. She has very mild lower abdominal pain at her incision site with walking up stairs but denies pain at any other time. She is tolerating a solid diet and is back to her normal daily bowel habits. Taking prune juice at night. Denies fever, chills, nausea, vomiting, constipation, diarrhea. She and son report her doing well without any concerns. [facility] Medical History (Updated 08/28/24 @ 10:42 by Neris North PA-C) Glaucoma HLD (hyperlipidemia) HTN (hypertension) Asthma Surgical History (Updated 08/18/24 @ 00:01 by Romina Vallejo) S/P laparotomy with lysis of adhesions (08/04/24) Hx of appendectomy H/O: hysterectomy Social History Household Members: None Housing: Other Housing Other:: independent living Do you presently have visiting nurse or other home services: No Patient Tobacco Use Status: Former Tobacco user Tobacco use type: Cigarette Second Hand Smoke Exposure: No service: No Review of Systems Const All systems reviewed & are unremarkable except as noted in HPI and below Physical Exam Vital Signs: Last Vital Signs Pulse 72 08/27/24 10:46 BP 134/63 08/27/24 10:46 Const General: comfortable, no acute distress and alert Orientation/consciousness: patient oriented x3 Resp Effort & Inspection: normal respiratory effort GI Other: remainder of steri strips removed, midline incision well healed, mild residual induration, no erythema, very mild resolving ecchymosis at inferior aspect and left lower quadrant Inspection: No distended Palpation (GI): Soft to palpation and no guarding Skin General skin exam: no rashes or lesions noted Neuro General: patient oriented x3 and moves all extremities Assessment & Plan Assessment & Plan (1) Visit for wound check: Code(s): Z51.89 - Encounter for other specified aftercare Category: Medical Plan 89 year old female who underwent exploratory laparotomy, lysis of adhesions for nonresolving SBO on 08/04/24. She tolerated the procedure well. She is home from [facility] and doing well. Her abdomen is benign with well healed incision without evidence of infection. She was instructed to continue to no heavy lifting/strenuous activities for the next couple of weeks but can gradually increase light activity as tolerated. She is to return in 1 month or sooner if she develops concerns. Patient and son comfortable with plan. Coding Level of Care Code Global (74458) Diagnoses Visit for wound check Z51.89
[2024-08-27 10:46] VITALS: BP 134/63; PULSE 72
--- OUTSIDE RECORDS SUMMARY | 2024-08-27 12:01 | XMS_ITS | Clinical Summary ---
Author Organization [address] [facility] Address [address] [place] [address] Phone Care Team Providers Care Mold Tooling Technician Name Role Phone Dominic Davila MD Primary Care Provider [phone] Encounters Date Type Department Care Team Description 08/20/2024 Lab Requisition [facility] [address] [place] [phone] Dominic Davila MD Weakness; Other fatigue 08/16/2024 Lab Requisition [facility] [address] [place] [phone] Dominic Davila MD Weakness; Other fatigue 08/13/2024 Lab Requisition [facility] [address] [place] [phone] Dominic Davila MD Essential (primary) hypertension; Hyperlipidemia, unspecified from Last 3 Months Social History Tobacco Use Types Packs/Day Years Used Date Smoking Tobacco: Never Assessed Comments Unknown Sex and Gender Information Value Date Recorded Sex Assigned at Not on file Legal Sex Female 9:57 AM EDT Gender Identity Not on file Sexual Orientation Not on file Plan of Treatment Health Maintenance Due Date Last Done Comments DTaP,Tdap,and Td Vaccines (1 - Tdap) 07/05/1954 Pneumococcal Vaccine: 50+ Years (1 of 1 - PCV) 1986 Zoster Vaccines (1 of 2) 1986 RSV Immunization Adult Patients (1 - 1-dose 75+ series) 07/05/2011 COVID-19 Vaccine ( - 2023-2 5 season) 2023 Cholesterol Screening (Lipid Panel) 08/13/2024 Depression Screening 08/13/2024 Falls Risk Assessment 08/13/2024 Medicare Annual Wellness Visit 08/13/2024 Osteoporosis Screening (Bone Density Screening) 08/13/2024 Social Influencers of Health Screening 08/13/2024 Influenza Vaccine (Season Ended) 2024 Hypertension/CHF/CAD Annual BMP Blood Test 08/20/2025 08/20/2024, 08/16/2024, 08/13/2024 HIB Vaccines Aged Out No longer eligi ble based on patient's age to complete this topic HPV Vaccines Aged Out No longer eligi ble based on patient's age to complete this topic Hepatitis A Vaccines Aged Out No long er eligible based on patient's age to complete this topic Hepatitis B Vaccines Aged Out No long er eligible based on patient's age to complete this topic IPV Vaccines Aged Out No longer eligi ble based on patient's age to complete this topic MMR Vaccines Aged Out No longer eligi ble based on patient's age to complete this topic Meningococcal ACWY Vaccine Aged Out N o longer eligible based on patient's age to complete this topic Meningococcal B Vaccine Aged Out No l onger eligible based on patient's age to complete this topic RSV Immunization Patients Under 20 months Aged Out No longer eligible b ased on patient's age to complete this topic Varicella Vaccines Aged Out No longer eligible based on patient's age to complete this topic Procedures Procedure Name Priority Date/Time Associated Diagnosis Comments BASIC METABOLIC PANEL Routine 08/20/2024 9:01 AM EDT Weakness Other fatigue COMPREHENSIVE METABOLIC PANEL Routine 08/16/2024 7:02 AM EDT Weakness Other fatigue COMPREHENSIVE METABOLIC PANEL Routine 08/13/2024 7:16 AM EDT Essential (primary) hypertension Hyperlipidemia, unspecified COMPLETE BLOOD COUNT Routine 08/13/2024 7:16 AM EDT Essential (primary) hypertension Hyperlipidemia, unspecified from Last 3 Months Results * Basic metabolic panel (08/20/2024 9:01 AM EDT) Sodium 133 133 - 145 mmol/L LAB CHEMISTRY METHOD 08/20/2024 1:[address] [facility] Potassium 3.7 3.5 - 5.5 mmol/L LAB CHEMISTRY METHOD 08/20/2024 1:[address] [facility] Chloride 97 96 - 110 mmol/L LAB CHEMISTRY METHOD 08/20/2024 1:33 PM [facility] CO2 25 21 - 32 mmol/L LAB CHEMISTRY METHOD 08/20/2024 1:33 PM [facility] Anion Gap 11 3 - 11 LAB CHEMISTRY METHOD 08/20/2024 1:[address] [facility] Glucose 99 70 - 100 mg/dL LAB CHEMISTRY METHOD 08/20/2024 1:33 PM [facility] BUN 7 5 - 25 mg/dL LAB CHEMISTRY METHOD 08/20/2024 1:33 PM [facility] Creatinine 0.64 0.50 - 1.10 mg/dL LAB CHEMISTRY METHOD 08/20/2024 1:33 PM [facility] eGFR 85 >=60 mL/min/1. 73m2 LAB CHEMISTRY METHOD 08/20/2024 1:33 PM [facility] Comment:Calculation based on the Chronic Kidney Disease Epidemiology Collaboration (CKD-EPI) equation refit without adjustment for race. BUN/Creatinine Ratio 10.9 LAB CHEMISTRY METHOD 08/20/2024 1:33 PM [facility] Calcium 9.7 8.5 - 10.5 mg/dL LAB CHEMISTRY METHOD 08/20/2024 1:33 PM [facility] Blood Venous blood specimen / Unknown Venipuncture / Unknown 08/20/2024 9:01 AM EDT 08/20/2024 11:30 AM EDT us Dominic Davila MD LAB BLOOD ORDERABLES Final Resul t [facility] [address] [place] [address], * (ABNORMAL) Comprehensive metabolic panel (08/16/2024 7:02 AM EDT) Only the most recent of2 resultswithin the time period is included. Sodium 132(L) 133 - 145 mmol/L LAB CHEMISTRY METHOD 08/16/2024 10:40 AM [facility] Potassium 3.9 3.5 - 5.5 mmol/L LAB CHEMISTRY METHOD 08/16/2024 10:40 AM [facility] Chloride 98 96 - 110 mmol/L LAB CHEMISTRY METHOD 08/16/2024 10:40 AM [facility] CO2 26 21 - 32 mmol/L LAB CHEMISTRY METHOD 08/16/2024 10:40 AM [facility] Anion Gap 8 3 - 11 LAB CHEMISTRY METHOD 08/16/2024 10:40 AM [facility] Glucose 101(H) 70 - 100 mg/dL LAB CHEMISTRY METHOD 08/16/2024 10:40 AM [facility] BUN 12 5 - 25 mg/dL LAB CHEMISTRY METHOD 08/16/2024 10:40 AM [facility] Creatinine 0.64 0.50 - 1.10 mg/dL LAB CHEMISTRY METHOD 08/16/2024 10:40 AM [facility] eGFR 85 >=60 mL/min/1. 73m2 LAB CHEMISTRY METHOD 08/16/2024 10:40 AM [facility] Comment:Calculation based on the Chronic Kidney Disease Epidemiology Collaboration (CKD-EPI) equation refit without adjustment for race. BUN/Creatinine Ratio 18.8 LAB CHEMISTRY METHOD 08/16/2024 10:40 AM [facility] Calcium 9.7 8.5 - 10.5 mg/dL LAB CHEMISTRY METHOD 08/16/2024 10:40 AM [facility] AST (SGOT) 28 10 - 42 unit/L LAB CHEMISTRY METHOD 08/16/2024 10:40 AM [facility] ALT (SGPT) 52 10 - 60 unit/L LAB CHEMISTRY METHOD 08/16/2024 10:[address] [facility] Alkaline Phosphatase 102 42 - 121 unit/L LAB CHEMISTRY METHOD 08/16/2024 10:[address] [facility] Total Protein 6.7 6.0 - 8.0 g/dL LAB CHEMISTRY METHOD 08/16/2024 10:[address] [facility] Albumin 3.4 3.2 - 5.0 g/dL LAB CHEMISTRY METHOD 08/16/2024 10:[address] [facility] Total Bilirubin 0.8 0.0 - 1.4 mg/dL LAB CHEMISTRY METHOD 08/16/2024 10:[address] [facility] Blood Venous blood specimen / Unknown Venipuncture / Unknown 08/16/2024 7:02 AM EDT 08/16/2024 9:01 AM EDT us Dominic Davila MD LAB BLOOD ORDERABLES Final Resul t [facility] [address] [place] [address], * Complete blood count (08/13/2024 7:16 AM EDT) WBC 8.6 4.8 - 10.8 K/mcL LAB HEMETOLOGY METHOD 08/13/2024 10:[address] [facility] RBC 3.90 3.80 - 4.80 M/mcL LAB HEMETOLOGY METHOD 08/13/2024 10:[address] [facility] Hemoglobin 12.0 11.5 - 16.0 g/dL LAB HEMETOLOGY METHOD 08/13/2024 10:52 AM [facility] Hematocrit 36.4 35.0 - 47.0 % LAB HEMETOLOGY METHOD 08/13/2024 10:[address] [facility] MCV 94.5 79.0 - 98.0 FL LAB HEMETOLOGY METHOD 08/13/2024 10:[address] [facility] MCH 31.2 27.0 - 32.0 pcg LAB HEMETOLOGY METHOD 08/13/2024 10:[address] [facility] MCHC 33.0 32.0 - 37.0 g/dL LAB HEMETOLOGY METHOD 08/13/2024 10:[address] [facility] RDW 13.3 11.0 - 15.0 % LAB HEMETOLOGY METHOD 08/13/2024 10:[address] [facility] Platelets 319 130 - 400 K/mcL LAB HEMETOLOGY METHOD 08/13/2024 10:[address] [facility] MPV 9.0 7.0 - 11.0 FL LAB HEMETOLOGY METHOD 08/13/2024 10:[address] [facility] NRBC 0.0 <1.0 % LAB HEMETOLOGY METHOD 08/13/2024 10:[address] [facility] NRBC Absolute 0.00 <0.10 K/mcL LAB HEMETOLOGY METHOD 08/13/2024 10:[address] [facility] Blood Venous blood specimen / Unknown Venipuncture / Unknown 08/13/2024 7:16 AM EDT 08/13/2024 9:58 AM EDT us Dominic Davila MD LAB BLOOD ORDERABLES Final Resul t [facility] [address] [place] [address], [place] [phone] from Last 3 Months Insurance MEDICARE [facility] Care Teams Mold Tooling Technician Relationship Specialty Start Date End Date Dominic Davila MD [address] [phone] PCP - General Family Medicine 08/13/24
== END 2024-08-27 11:10 | disposition home or self-care (01) ==
LOC: HO.HGS 10:26
PROVIDERS: PCP Internal Medicine; Visit Provider Physician Assistant Surgical
DX: Z51.89 Encounter for other specified aftercare (principal)
CPT/HCPCS: 99024

== ENCOUNTER → 2024-08-27 10:25 | Outpatient (BNVA) | payer MEDICARE, SELFPAY | PROVIDERS: PCP Internal Medicine; Visit Provider Physician Assistant Surgical | DX: Z48.89 Encounter for other specified surgical aftercare (principal); Z98.890 Other specified postprocedural states | CPT/HCPCS: 99212 ==

== ENCOUNTER 2024-10-08 12:55 | Outpatient (AMB) | payer MEDICARE, SELFPAY ==
--- NOTE | 2024-10-08 12:59 | MHC.OFFVIS ---
Vital Signs 10/08/24 13:09 Height 4 ft 11 in Weight 141 lb BMI 28.5 BP 132/60 Blood Pressure Location Rt brachial Position Sitting Pulse 72 Intake Visit Reasons: 1mth s/p colon Intake Note: Pt states, I'm here for the final check up on my surgery. no complaints. States she takes prune juice daily at night to keep bowels regular. Manager Customer Required: No Allergies No Known Allergies (No Known Allergies*) Allergy (Unknown, Verified 10/08/24 13:04) Medication List - Last Reconciled 10/08/24 by Memo Nelson RN atorvastatin 10 mg PO DAILY bimatoprost 0.01% (Lumigan) 1 drp ophthalmic (eye) BEDTIME brinzolamide-brimonidine 1-0.2 % (Simbrinza) 1 drp ophthalmic (eye) BID hydrochlorothiazide 12.5 mg PO DAILY HPI HPI 1mth s/p colon: Details: Patient states she is doing very well, has returned to [facility] where she has been partaking in group exercise classes. She states she has been slowly increasing how much she is doing. She denies any pain at the incision site at rest or with ambulation/exercise. Reports her appetite is at baseline. Bowel habits are regular, she has been using prune juice at night which he states keeps her bowel movements consistent. She denies any nausea or vomiting, diarrhea. She denies any redness or tenderness at the incision site. [facility], [facility] Medical History Glaucoma HLD (hyperlipidemia) HTN (hypertension) Asthma Surgical History S/P laparotomy with lysis of adhesions (08/04/24) Hx of appendectomy H/O: hysterectomy Social History Household Members: None Housing: Other Housing Other:: independent living Do you presently have visiting nurse or other home services: No Patient Tobacco Use Status: Former Tobacco user Tobacco use type: Cigarette Second Hand Smoke Exposure: No service: No Review of Systems Const All systems reviewed & are unremarkable except as noted in HPI and below Physical Exam Vital Signs: Last Vital Signs Pulse 72 10/08/24 13:09 BP 132/60 07/15/25 13:09 BMI result Body Mass Index 28.5 Const General: comfortable and no acute distress Orientation/consciousness: patient oriented x3 Resp Effort & Inspection: normal respiratory effort and able to speak in complete sentences GI Other: Midline incision appears to be healing well, mild induration, likely scarring of the abdominal wall Inspection: No distended Palpation (GI): Soft to palpation, not firm, nontender, no guarding and not rigid Neuro General: patient oriented x3 Assessment & Plan Assessment & Plan (1) S/P laparotomy with lysis of adhesions: Onset Date: 08/04/24 Code(s): Z98.890 - Other specified postprocedural states Category: Surgical Plan 81-year-old female status post exploratory laparotomy, lysis of adhesions for small-bowel obstruction on 08/04/2024 presenting to the office for routine follow-up. Patient is doing very well. She is not having any pain at the incision site. Her bowel function and appetite are at baseline. She is using prune juice to maintain regular bowel habits. She has returned to [facility], her place of residence, and has been partaking in exercise classes. She denies any pain during these classes. On exam her abdomen is soft and benign. The midline incision appears to be healing well there was some mild induration deep to the incision that is likely scar tissue from the incision. I reassured her that this is a normal finding, but if it is bothersome to her she can do warm compresses light massage which may help this often this tissue. She did not seem overly bothered by this. She no longer has any activity restrictions, I advised her to slowly ramp back up to her baseline level of activity. At this point patient is no longer requiring follow-up. She can follow up as needed with any concerns in the future. Coding Level of Care Code Global (82958) Diagnoses S/P laparotomy with lysis of adhesions Z98.890
[2024-10-08 13:09] VITALS: BP 132/60; PULSE 72; BMI 28.5
--- OUTSIDE RECORDS SUMMARY | 2024-10-08 14:08 | XMS_ITS | Data Portability ---
Author Organization [facility], Main Office Address [address], [address] [place] [address] Care Team Providers Care Detasseler Name Role Phone JACOBY HU AT [facility] OTHER VEDA NGUYEN Primary Care Provider Assessment Encounter Date Assessment Date Assessment LastModified by Organization Details LastModified Time 08/20/2024 08/20/2024 45 minutes spent on coordination of discharge [email or web address] Not available 08/20/2024 10:33:08 Plan of Treatment Reminders Order Date Submit Date Provider Last Modified By Organization Details Last Modified Time Details Appointments None recorded. Lab None recorded. Referral None recorded. Procedures None recorded. Surgeries None recorded. Imaging None recorded. Medication Orders lisinopril 5 mg tablet 2024 025 [facility][id number], [address] [place], [address], 10:34:20 Patient TargetsNo targets recorded. Patient InstructionsNo instructions recorded. Reason for Referral None Reported. Problems Name Problem SNOMED Code Status Onset Date Resolution Date Notes Provider Name and Address Organization Details Recorded Time Asthenia 60311780 Active 2024 KASH LEONARDO NP [address] [facility], [address], [place], [address], [facility] 5 09:25:40 Essential hypertension 50277216 Active 2024 KASH LEONARDO NP [address] [facility], [address], [place], [address], [facility] 5 09:25:47 Mixed hyperlipidemia 796868689 Active 2024 KASH LEONARDO NP [address] [facility], [address], [place], [address], [facility] 5 09:25:53 Glaucoma 41196642 Active 2024 KASH LEONARDO NP [address] [facility], [address], [place], [address], [facility] 5 09:26:01 Small bowel obstruction 539251513 Active 2024 KASH LEONARDO NP [address] [facility], [address], [place], [address], [facility] 5 09:26:32 Problem Notes None recorded. Medical Equipment None Reported. Allergies No known drug allergies Medications Name Sig Start Date Stop Date Status Note LastModified by Organization Details LastModified Time lisinopril 5 mg tablet Take 1 tablet every day by oral route. 025 active Not Available Not Available Not Avai lable Vitals Date Recorded Heart rate Respiratory rate Body temperature Oxygen saturation Oxygen saturation in Arterial blood by Pulse oximetry Systolic And Diastolic Provider Name and Address Organization Details Last Updated DateTime 5 70 /min 18 /min 97.7 [degF] 92 % 92 % 163/79 mm[Hg] KASH LEONARDO NP [address] [facility], [address], [place], [address], [facility] 5 09:21:31 Date Recorded Heart rate Respiratory rate Body temperature Oxygen saturation Oxygen saturation in Arterial blood by Pulse oximetry Systolic And Diastolic Provider Name and Address Organization Details Last Updated DateTime 5 68 /min 18 /min 97.6 [degF] 95 % 95 % 100/53 mm[Hg] KASH LEONARDO NP [address] [facility], [address], [place], [address], [facility] 5 08:46:05 Date Recorded Heart rate Respiratory rate Body temperature Oxygen saturation Oxygen saturation in Arterial blood by Pulse oximetry Systolic And Diastolic Provider Name and Address Organization Details Last Updated DateTime 5 63 /min 16 /min 97.2 [degF] 98 % 98 % 145/68 mm[Hg] KASH LEONARDO NP [address] [facility], [address], [place], [address], [facility] 5 10:21:49 Social History Question Answer Notes LastModified by Organizat ion Details LastModified Time Tobacco Smoking Status Former Smoker KASH LEONARDO, KOBY [address] [facility], [address], [place], [address], [facility] 08/12/2024 09:32:27 What Is Your Code Status? DNR/DNI No Dialysis [email or web address] Information not available 08/12/2024 [facility] You [facility] [email or web address] Information not available 08/12/2024 What Was The Date Of Your Most Recent Tobacco Screening? 08/12/2024 Information not available 08/12/2024 Do You Have An Out Of Hospital DNR? Yes Information not available 08/12/2024 Has Tobacco Cessation Counseling Been Provided? No [email or web address] Information not available 08/12/2024 Sex: Unknown Functional Status Question Answer Note LastModified by Organizat ion Details LastModified Time Do you use any illicit or recreational drugs? No [email or web address] Information not available 08/12/2024 Do you or have you ever used any other forms of tobacco or nicotine? No [email or web address] Information not available 08/12/2024 What is your level of alcohol consumption? None [email or web address] Information not available 08/12/2024 Mental Status None recorded. Family History Nothing Reported Notes:n/c Medical History No medical history recorded. Gynecological HistoryNo gynecological history recorded. Obstetrics History GPAL:G 0 P 0 0 0 0 Immunizations Vaccine Type Date Status Note Provider Nam e and Address Organization Details Recorded Time Respiratory syncytial virus (RSV) MAB, unspecified 3 completed Sander Prescott [facility], [facility] 08/14/2024 11:53:39 Pneumococcal conjugate PCV 13 6 completed Sander Prescott [facility], [facility] 08/14/2024 11:53:50 pneumococcal polysaccharide PPV23 8 completed Sander Prescott [facility], [facility] 08/14/2024 11:54:01 influenza, unspecified formulation 0 completed Sander Prescott [facility], [facility] 08/14/2024 11:54:36 influenza, unspecified formulation 1 completed Sander Jacks-García null, [facility] 08/14/2024 11:54:43 influenza, unspecified formulation 2 completed Sander Jacks-García null, [facility] 08/14/2024 11:54:47 influenza, unspecified formulation 3 completed Sander Jacks-García null, [facility] 08/14/2024 11:54:51 influenza, unspecified formulation 4 completed Sander Jacks-García null, [facility] 08/14/2024 11:54:55 SARS-COV-2 (COVID-19) vaccine, UNSPECIFIED 1 completed Sander Jacks-García null, [facility] 08/14/2024 11:55:29 SARS-COV-2 (COVID-19) vaccine, UNSPECIFIED 1 completed Sander Jacks-García null, [facility] 08/14/2024 11:55:33 SARS-COV-2 (COVID-19) vaccine, UNSPECIFIED 1 completed Sander Jacks-García null, [facility] 08/14/2024 11:55:37 SARS-COV-2 (COVID-19) vaccine, UNSPECIFIED 2 completed Sander Jacks-García null, [facility] 08/14/2024 11:55:41 SARS-COV-2 (COVID-19) vaccine, UNSPECIFIED 2 completed Sander Jacks-García null, [facility] 08/14/2024 11:55:45 SARS-COV-2 (COVID-19) vaccine, UNSPECIFIED 3 completed Sander Jacks-García null, [facility] 08/14/2024 11:55:49 SARS-COV-2 (COVID-19) vaccine, UNSPECIFIED 4 completed Sander Jacks-García null, [facility] 08/14/2024 11:55:54 SARS-COV-2 (COVID-19) vaccine, UNSPECIFIED 4 completed Sander Jacks-García null, [facility] 08/14/2024 11:55:57 SARS-COV-2 (COVID-19) vaccine, UNSPECIFIED 5 completed Sander Prescott null, [facility] 08/14/2024 11:56:02 zoster, unspecified formulation 6 completed Sander Prescott null, [facility] 08/14/2024 11:56:15 zoster, unspecified formulation 0 completed Sander Prescott null, [facility] 08/14/2024 11:56:20 Past Encounters Encounter ID Performer Location Encounter Start Date Encounter Closed Date Diagnosis/Indication Diagnosis SNOMED-CT Code Diagnosis ICD10 Code Diagnosis Note [id number] KASH LEONARDO NP [place] [address] [place] [address] 08/12/2024 09:19:58 08/13/2024 15:30:19 Small bowel obstruction [id number] K56.609 s/p exp. lap, RINKU on 08/[address] Coto.GI motility returned, diet advanced, doing well.Monit or VS, labs, incision, intake, GI status for changes.Ma nage pain with prn APAP and ultram - minimal pain at presentOn colace for bowels, monitor movementsF ollow up with Dr. Coto in 1 wk. Asthenia 78957404 R53.1 PT OT eval and tx.Decondi tioned due to acute illness and hospitaliz ation.Goal is to return home. Essential hypertension 80330185 I10 Continue HCTZ 12.5 mg qdAdded lisinopril 5 mg qd at [facility] VS, labs, adjust meds prn. Mixed hyperlipidemia 267 907658 E78.2 Continue atorvastat in 10 m g qd Glaucoma 42075535 H40.11 90 Continue home eye dropsUpdat e Ophth. with concerns. [id number] Dominic Davila MD [place] [address] [place] [address] 08/13/2024 15:12:26 08/14/2024 18:23:31 Small bowel obstruction 131035755 K56.609 see HPIpresent ed with abd pain, dx with SBOEval by surgery and underwent laparotomy and lysis of adhesionsm onitor pain control and bowel movementsf ollow surgery recs and update with concernsf/ u in place Essential hypertension 54860827 I10 HCTZ 12.5 mg qdlisinopr il 5 mg qd added during hospitaliz ationmonit or bp and need to titrate Asthenia 67590422 R53.1 PT OT eval and treatmonit or fall risk and need for increased support in community Mixed hyperlipidemia 267 135083 E78.2 lipitor 10 mg qdcontinue d [id number] KASH LEONARDO NP [place] [address] [place] [address] 08/14/2024 08:30:03 08/15/2024 14:29:23 Small bowel obstruction 573563439 K56.609 s/p exp. lap, RINKU on 08/[address] Coto.GI motility returned, diet advanced, doing well. Now moving bowels.Mon itor VS, labs, incision, intake, GI status for changes.Arian nagdipti pain with prn APAP and ultram - minimal pain at present, APAP helpingOn colace for bowels, monitor movementsF ollow up with Dr. Coto in 1 wk. Essential hypertension 53661848 I10 BP still on the higher side.Curre ntly on HCTZ 12.5 mg qdAdded lisinopril 5 mg qd at HMCBMP with bump in Bun/Cr. - needs to be followed, repeat CMP 08/16. May need to adjust meds.Monit or VS, labs, adjust meds prn. Asthenia 30767877 R53.1 PT OT eval and tx., making progress, potential d/c 08/20.Decon ditioned due to acute illness and hospitaliz ation.Goal is to return home. Mixed hyperlipidemia 267 245538 E78.2 Continue atorvastat in 10 m g qd Glaucoma 01486049 H40.11 90 Continue home eye dropsUpdat e Ophth. with concerns. Acute hyponatremia 01584 02 E87.1 Mild, Na 134Is on HCTZ - repeat CMP 08/16. Liver func tion test above reference range 109220586 R79.89 08/13 = SGOT 56, SGPT 80Is on statin and prn APAP - monitor need to adjust.Rep eat CMP 08/16 [id number] KASH LEONARDO NP [address] [address] 08/20/2024 10:19:53 08/22/2024 09:14:29 Acute hyponatremia 6194296 E87.1 Mild, Na 134 -> 132.Is on HCTZ - repeat BMP pending, will forward to PCP to continue to trend. Liver func tion test above reference range 271200926 R79.89 08/13 = SGOT 56, SGPT 805/23 = back to nl.Is on statin and prn APAP - monitor need to adjust as outpt. Small kimmy l obstruction 739081239 K56.609 s/p exp. lap, RINKU on 08/[address] Coto.GI motility returned, diet advanced, doing well. Now moving bowels.Mon itor VS, labs, incision, intake, GI status for changes.Arian nage pain with prn APAP and ultram - minimal pain at present, APAP helping. Using Ultram on occasion.O n colace and prune juice for bowels, monitor movements and adjust OTC laxatives upon discharge. Follow up with Dr. Coto in place. Essential hypertension 11071989 I10 BP tended to run on the higher side of nl. while here.Curre ntly on HCTZ 12.5 mg qdAdded lisinopril 5 mg qd at [facility] - continueMo nitor VS, labs, adjust meds prn. Asthenia 88973639 R53.1 PT OT eval and tx., meeting rehab goals for d/c home today with support of services. Mixed hyperlipidemia 267 043302 E78.2 Continue atorvastat in 10 m g qd Glaucoma 35919512 H40.11 90 Continue home eye dropsUpdat e Ophth. with concerns. Health Concerns Section Related Observation LastModified by Organization Detai ls LastModified Time None Recorded Concern Status LastModified by Organization Details LastModified Time None Recorded Advance Directives Directive None Recorded Payers Insurance Date Sequence Insurance Name Policy Number Policy Bowden Covered Member ID Bowden Member ID Guarantor Name 08/13/2024 1 [place] [employer] Bernardino Wood [id number] Bernardino Wood 09/03/2024 2 [id number] Bernardino Wood 08/20/2024 2 [place] [id number] Bernardino Wood [id number] Bernardino Wood Notes Date Note Type Note Provider Name and Address Organization Details Recorded Time 08/12/2024 text/html Bernardino is seen amanda pak for initial intake. She is an 89 yo lady, admitted to [facility] 08/10/24 from [facility] for continued care and rehab after a brief hosp. due to abd. pain. She presented to [facility] 07/28/24 with abdominal pain, nausea, and constipation. Work up revealed SBO, underwent exp. lap and RINKU by Dr. Coto on 08/04. Mikala. procedure well. GI function slowly returned and diet advanced.Stay complicated by bradycardia, seen by Cards, no intervention needed.Lisinopril was added for BP control. Upon exam today, Bernardino is OOB, alert,NAD. In good spirits. Pain not too bad , taking po, passing gas but has not had a BM yet. Up OOB ambulating in the halls with rehab yesterday. Denies feeling weak or dizzy. No SOB, CP. No complaints. MANNING = mod. fall risk PMH: HTN, HLD, glaucoma, s/p hyst., s/p appy, asthmaMOLST: DNR, DNI, no dialysis KASH LEONARDO NP [address] [facility], [address], [place], [address], [facility] 08/12/2024 10:20:51 08/13/2024 text/html Patient is an 89 yo female admit from hospital after presenting with abdominal pain, nausea and constipation. Work up positive for SBO. Eval by surgery and underwent laparotomy and lysis of adhesions. Complicated by bradycardia post op was eval by cards with no intervention indicated. Noted elevated bp with lisinopril added to medications PMH is significant forgait instabilityhtnhld admit to facility for continued care and therapy eval and treat Dominic Davila MD [address] [facility], [address], [place], [address], [facility] 08/13/2024 15:43:05 08/14/2024 text/html Bernardino is seen amanda pak for an acute visit. She is an 89 yo lady, admitted to [facility] 08/10/24 from [facility] for continued care and rehab after a brief hosp. due to abd. pain. She presented to [facility] 07/28/24 with abdominal pain, nausea, and constipation. Work up revealed SBO, underwent exp. lap and RINKU by Dr. Coto on 08/04. Mikala. procedure well. GI function slowly returned and diet advanced.Stay complicated by bradycardia, seen by Cards, no intervention needed.Lisinopril was added for BP control. VSS, BP tending to run on higher side of nl.Labs 08/13 stable except for sl. increase in Bun, Cr., and LFTsWorking with rehab, making progress, feeling stronger. Upon exam today, Bernardino is in bed, alert, in good spirits, feeling better. Still with mild abd. pain, using APAP which helps. Now moving bowels, no GI upset. No other complaints today. MANNING = mod. fall risk PMH: HTN, HLD, glaucoma, s/p hyst., s/p appy, asthmaMOLST: DNR, DNI, no dialysis KASH LEONARDO NP [address] [facility], [address], [place], [address], [facility] 08/14/2024 12:26:58 08/20/2024 text/html Bernardino is seen amanda pak for a televisit discharge visit.She is going home today with the support of services. She is an 89 yo lady, admitted to [facility] 08/10/24 from [facility] for continued care and rehab after a brief hosp. due to abd. pain.She presented to [facility] 07/28/24 with abdominal pain, nausea, and constipation. Work up revealed SBO, underwent exp. lap and RINKU by Dr. Coto on 08/04. Mikala. procedure well. GI function slowly returned and diet advanced.Stay complicated by bradycardia, seen by Cards, no intervention needed.Lisinopril was added for BP control. While here, Bernardino has had a fairly uneventful stay.She has worked with rehab and is meeting goals for d/c home.VSS, BP tending to run on higher side of nl. while here.Labs stable except for sl. low Na, 134 -> 132. Recheck pending today.GI status stable/improved, moving bowels, using prune juice, OTC laxatives recommended for home use to keep bowels moving.Occasional use of prn Ultram for abdominal pain which has been effective.Appetite good.Denies other complaints at this time, happy to be going home. Upon exam today, Bernardino is in her chair, alert, in good spirits, feeling better, no complaints, no concerns other than occasional abdominal pain requiring prn ultram. MANNING = mod. fall risk PMH: HTN, HLD, glaucoma, s/p hyst., s/p appy, asthmaMOLST: DNR, DNI, no dialysis KASH LEONARDO NP [address] [facility], [address], [place], [address], [facility] 08/20/2024 10:35:04 OBGyn Episode No OBEpisode recorded.
--- OUTSIDE RECORDS SUMMARY | 2024-10-08 14:08 | XMS_ITS | Clinical Summary ---
Author Organization [address] [facility] Address [address] [place] [address] Phone Care Team Providers Care Balance Wheel Arm Burnisher Name Role Phone Dominic Davila MD Primary Care Provider [phone] Encounters Date Type Department Care Team Description 08/20/[address] [facility] [address] [place] [phone] Dominic Davila MD Weakness; Other fatigue 08/16/[address] [facility] [address] [place] [phone] Dominic Davila MD Weakness; Other fatigue 08/13/[address] [facility] [address] [place] [phone] Dominic Davila MD Essential (primary) hypertension; Hyperlipidemia, [...] [employer] Screening 08/13/2024 Influenza Vaccine (#1) 2024 Hypertension/CHF/CAD Annual BMP Blood Test 08/20/2025 [...] LAB CHEMISTRY METHOD 08/20/2024 1:33 PM EDT [facility] Potassium 3.7 3.5 - 5.5 mmol/L LAB CHEMISTRY METHOD 08/20/2024 1:33 PM EDT [facility] Chloride 97 96 - 110 mmol/L LAB CHEMISTRY METHOD 08/20/2024 1:33 PM [facility] CO2 25 21 - 32 mmol/L LAB CHEMISTRY METHOD 08/20/2024 1:33 PM [facility] Anion Gap 11 3 - 11 LAB CHEMISTRY METHOD 08/20/2024 1:33 PM T [facility] Glucose 99 70 - 100 mg/dL LAB CHEMISTRY METHOD 08/20/2024 1:33 PM [facility] BUN 7 5 - 25 mg/dL LAB CHEMISTRY METHOD 08/20/2024 1:33 PM [facility] Creatinine 0.64 0.50 - 1.10 mg/dL LAB CHEMISTRY METHOD 08/20/2024 1:33 PM [facility] eGFR 85 >=60 mL/min/1. 73m2 LAB CHEMISTRY METHOD 08/20/2024 1:33 PM [facility] Comment:Calculation based on the Chronic Kidney Disease Epidemiology Collaboration (CKD-EPI) equation refit without adjustment for race. BUN/Creatinine Ratio 10.9 LAB CHEMISTRY METHOD 08/20/2024 1:33 PM [facility] Calcium 9.7 8.5 - 10.5 mg/dL LAB CHEMISTRY METHOD 08/20/2024 1:33 PM [facility] Blood Venous blood specimen / Unknown Venipuncture / Unknown 08/20/2024 9:01 AM EDT 08/20/2024 11:30 AM EDT us Dominic Davila MD LAB BLOOD ORDERABLES Final Resul t [facility] [address] [place] [address], * (ABNORMAL) Comprehensive metabolic panel (08/16/2024 7:02 AM EDT) Only the most recent of2 resultswithin the time period is included. Sodium 132(L) 133 - 145 mmol/L LAB CHEMISTRY METHOD 08/16/2024 10:40 AM [facility] Potassium 3.9 3.5 - 5.5 mmol/L LAB CHEMISTRY METHOD 08/16/2024 10:40 AM [facility] Chloride 98 96 - 110 mmol/L LAB CHEMISTRY METHOD 08/16/2024 10:40 AM [facility] CO2 26 21 - 32 mmol/L LAB CHEMISTRY METHOD 08/16/2024 10:40 AM [facility] Anion Gap 8 3 - 11 LAB CHEMISTRY METHOD 08/16/2024 10:40 AM [facility] Glucose 101(H) 70 - 100 mg/dL LAB CHEMISTRY METHOD 08/16/2024 10:40 AM [facility] BUN 12 5 - 25 mg/dL LAB CHEMISTRY METHOD 08/16/2024 10:40 AM [facility] Creatinine 0.64 0.50 - 1.10 mg/dL LAB CHEMISTRY METHOD 08/16/2024 10:40 AM [facility] eGFR 85 >=60 mL/min/1. 73m2 LAB CHEMISTRY METHOD 08/16/2024 10:40 AM [facility] Comment:Calculation based on the Chronic Kidney Disease Epidemiology Collaboration (CKD-EPI) equation refit without adjustment for race. BUN/Creatinine Ratio 18.8 LAB CHEMISTRY METHOD 08/16/2024 10:40 AM [facility] Calcium 9.7 8.5 - 10.5 mg/dL LAB CHEMISTRY METHOD 08/16/2024 10:40 AM [facility] AST (SGOT) 28 10 - 42 unit/L LAB CHEMISTRY METHOD 08/16/2024 10:40 AM [facility] ALT (SGPT) 52 10 - 60 unit/L LAB CHEMISTRY METHOD 08/16/2024 10:40 AM EDT [facility] Alkaline Phosphatase 102 42 - 121 unit/L LAB CHEMISTRY METHOD 08/16/2024 10:40 AM EDT [facility] Total Protein 6.7 6.0 - 8.0 g/dL LAB CHEMISTRY METHOD 08/16/2024 10:40 AM EDT [facility] Albumin 3.4 3.2 - 5.0 g/dL LAB CHEMISTRY METHOD 08/16/2024 10:40 AM EDT [facility] Total Bilirubin 0.8 0.0 - 1.4 mg/dL LAB CHEMISTRY METHOD 08/16/2024 10:40 AM T [facility] Blood Venous blood specimen / Unknown Venipuncture / Unknown 08/16/2024 7:02 AM EDT 08/16/2024 9:01 AM EDT us Dominic Davila MD LAB BLOOD ORDERABLES Final Resul t [facility] [address] [place] [address], * Complete blood count (08/13/2024 7:16 AM EDT) WBC 8.6 4.8 - 10.8 K/mcL LAB HEMETOLOGY METHOD 08/13/2024 10:52 AM T [facility] RBC 3.90 3.80 - 4.80 M/mcL LAB HEMETOLOGY METHOD 08/13/2024 10:52 AM T [facility] Hemoglobin 12.0 11.5 - 16.0 g/dL LAB HEMETOLOGY METHOD 08/13/2024 10:52 AM [facility] Hematocrit 36.4 35.0 - 47.0 % LAB HEMETOLOGY METHOD 08/13/2024 10:52 AM EDT [facility] MCV 94.5 79.0 - 98.0 FL LAB HEMETOLOGY METHOD 08/13/2024 10:52 AM EDT [facility] MCH 31.2 27.0 - 32.0 pcg LAB HEMETOLOGY METHOD 08/13/2024 10:52 AM EDT [facility] MCHC 33.0 32.0 - 37.0 g/dL LAB HEMETOLOGY METHOD 08/13/2024 10:52 AM EDT [facility] RDW 13.3 11.0 - 15.0 % LAB HEMETOLOGY METHOD 08/13/2024 10:52 AM EDT [facility] Platelets 319 130 - 400 K/mcL LAB HEMETOLOGY METHOD 08/13/2024 10:52 AM EDT [facility] MPV 9.0 7.0 - 11.0 FL LAB HEMETOLOGY METHOD 08/13/2024 10:52 AM EDT [facility] NRBC 0.0 <1.0 % LAB HEMETOLOGY METHOD 08/13/2024 10:52 AM EDT [facility] NRBC Absolute 0.00 <0.10 K/mcL LAB HEMETOLOGY METHOD 08/13/2024 10:52 AM EDT [facility] Blood Venous blood specimen / Unknown Venipuncture / Unknown 08/13/2024 7:16 AM EDT 08/13/2024 9:58 AM EDT us Dominic Davila MD LAB BLOOD ORDERABLES Final Resul t [facility] [address] [place] [address], [place] [phone] from Last 3 Months Insurance MEDICARE [facility] Care Teams Balance Wheel Arm Burnisher Relationship Specialty Start Date End Date Dominic Davila MD [address] [phone] PCP - General Family Medicine 08/13/24
--- OUTSIDE RECORDS SUMMARY | 2024-10-08 14:09 | XMS_ITS | Patient Health Record ---
Author Organization [facility] Address [address] [place] [address] Care Team Providers Care Doffer Name Role Phone NONE, NONE Primary Care Provider Deondre Le [phone] Results Component Value Reference Range Notes Complete Blood Count Auto Di ff Reviewed date:08/01/2024 06:27:50 PM Interpretation: Performing Lab:[facility], [address] [place] [address] Notes/Report: White Blood Count 7.0 4.8-10.8 X10*3/uL Red Blood Count 3.96 4.20-5.50 X10*6/uL Hemoglobin 12.7 12.0-16.0 g/dl Hematocrit 36.6 37.0-47.0 % Mean Corpuscular Volume 92.4 80.0-98.0 fL Mean Corpuscular Hemoglobin 32.1 27.0-33.0 pg Mean Corpuscular HGB Conc 34.7 31.0-35.0 g/dl Red Cell Distribution Width 13.5 11.0-16.0 % Platelet Count 229 160-400 X10*3/uL Mean Platelet Volume 9.8 9.4-12.3 fL Neutrophils Percent Auto 53.9 45-73 % Imm Gran Pct Auto 2.0 0.0-0.4 % Lymphocytes Percent Auto 16.9 20-40 % Monocytes Percent Auto 26.5 2-11 % Eosinophils Percent Auto 0.6 0-4 % Basophils Percent Auto 0.1 0-2 % NRBC Pct Auto 0.0 0.0-0.2 /100WBC Neutrophils Absolute Auto 3.8 2.0-8.3 x10*3/u L Imm Gran Abs Auto 0.14 0.00-0.03 X10*3/uL Lymphocytes Absolute Auto 1.2 1.2-4.9 X10*3/u L Monocytes Absolute Auto 1.9 0.1-1.2 X10*3/uL Eosinophils Absolute Auto 0.0 0.0-0.4 X10*3/u L Basophils Absolute Auto 0.0 0.0-0.2 X10*3/uL NRBC Abs Auto 0.000 0.0-0.012 X10*3/uL White Blood Count 7.0 4.8-10.8 X10*3/uL Red Blood Count 3.96 4.20-5.50 X10*6/uL Hemoglobin 12.7 12.0-16.0 g/dl Hematocrit 36.6 37.0-47.0 % Mean Corpuscular Volume 92.4 80.0-98.0 fL Mean Corpuscular Hemoglobin 32.1 27.0-33.0 pg Mean Corpuscular HGB Conc 34.7 31.0-35.0 g/dl Red Cell Distribution Width 13.5 11.0-16.0 % Platelet Count 229 160-400 X10*3/uL Mean Platelet Volume 9.8 9.4-12.3 fL Neutrophils Percent Auto 53.9 45-73 % Imm Gran Pct Auto 2.0 0.0-0.4 % Lymphocytes Percent Auto 16.9 20-40 % Monocytes Percent Auto 26.5 2-11 % Eosinophils Percent Auto 0.6 0-4 % Basophils Percent Auto 0.1 0-2 % NRBC Pct Auto 0.0 0.0-0.2 /100WBC Neutrophils Absolute Auto 3.8 2.0-8.3 x10*3/u L Imm Gran Abs Auto 0.14 0.00-0.03 X10*3/uL Lymphocytes Absolute Auto 1.2 1.2-4.9 X10*3/u L Monocytes Absolute Auto 1.9 0.1-1.2 X10*3/uL Eosinophils Absolute Auto 0.0 0.0-0.4 X10*3/u L Basophils Absolute Auto 0.0 0.0-0.2 X10*3/uL NRBC Abs Auto 0.000 0.0-0.012 X10*3/uL Basic Metabolic Panel Fastin g Reviewed date:08/01/2024 06:27:35 PM Interpretation: Performing Lab:[facility], [address] [place] [phone] Notes/Report: Sodium 141 135-145 mmol/L Potassium 2.8 3.3-5.1 mmol/L Critical POTS sent by a secure message and confirmed by EMMANUEL CAMPO 08/01/24,1547 Tech: FLEMINC Chloride 99 96-108 mmol/L Carbon Dioxide 34 22-29 mmol/L Anion Gap 11 12-20 Blood Urea Nitrogen 20 9-16 mg/dL Creatinine 0.65 0.5-1.4 mg/dL Creatinine Clr Calc Pharmacy 49.5 Provided height and weight: 149.86 cm, 66.2 kg. eGFR (calculated from the MDRD study equation) and eCrCl (calculated from the Cockcroft-Gault equation) are based on different parameters and may not yield comparable results. If eCrCl result is absurd, please check patient's height/weight. Estimated Glomerular Filt Rate > 60 Chronic Kidney Disease: Estimated GFR < 60 mL/min/1.73m2 Severe Kidney Disease: Estimated GFR < 15 mL/min/1.73m2 Glucose Fasting 109 60-99 mg/dL A fasting glucose from 100-125 mg/dl is considered impaired (pre-diabetes). Calcium 9.8 8.4-10.2 mg/dL Free T4 (Free Thyroxine) Reviewed date:08/01/2024 06:27:24 PM Interpretation: Performing Lab:[facility], [address] [place] [phone] Notes/Report: Free T4 (Free Thyroxine) 1.17 0.71-1.85 ng/dL XR abdomen 3V Reviewed date:08/02/2024 01:18:08 AM Interpretation: Performing Lab: Notes/Report: [address] [address] XRay Report Signed with Olesya Patient: Bernardino Murcia MR#: [id number] : 1935 Acct:[id number] Age/Sex: 89 / F ADM Date: 07/28/24 Loc: HO.S3 368-[address]: Yodit Cantu MD Ordering Physician: Deondre Lewis MD Date of Service: 08/01/24 Procedure(s): XR abdomen 3V Accession Number(s): [id number] cc: VEDA NGUYEN MD; Deondre Lewis MD ADDENDUM This document has been electronically signed by: Sree Rod MD on 08/01/2024 18:14:04 ADDENDUM: This report was discussed with Desirae Tam RN on August 01, 2024 18:38:00 EDT. This document has been electronically signed by: Lori Abreu on 08/01/2024 18:39:28 Addendum Dictated By: Sree Rod MD Addendum Signed By: <Electronically signed by Sree Rod MD in OV> 08/01/241839 Addendum Cosigned By: DD/ /18/1813 TD/TT: 08/01/2411/18/1838 CLINICAL HISTORY: Abdominal distentioin, R O ileus vs. SBO Two views of the abdomen. COMPARISON: CT/SR - CT ABDOMEN PELVIS W IV CON - 07/27/24 21:30 EDT FINDINGS: Oral contrast has progressed into the distal sigmoid colon and rectum. Persistent air-filled loops of distended small bowel in the midabdomen with air-fluid levels. No pneumoperitoneum identified. No fracture identified. Mild spondylosis. Blunting of the bilateral costophrenic angles. No acute fracture. IMPRESSION: 1. Air-filled distended loops of small bowel with air-fluid levels suggestive of early or partial small bowel obstruction. Of note oral contrast has progressed into the distal sigmoid colon favoring partial small bowel obstruction. This document has been electronically signed by: Sree Rod MD on 08/01/2024 18:14:04 Dictated By: Sree Rod MD Signed By: <Electronically signed by Sree Rod MD in OV> 08/01/241813 DD/ 13 TD/TT: 08/01/241813 Tooth Grinder: SLIDE REVIEW Reviewed date:08/01/2024 06:27:44 PM Interpretation: Performing Lab:[facility], [address] [place] [phone] Notes/Report: SLIDE REVIEW VERIFIED Hold Lav - Possible Hematolo gy Reviewed date:08/02/2024 05:52:47 PM Interpretation: Performing Lab:[facility], [address] [place] [phone] Notes/Report: Hold Lav - Possible Hematology SEE NOTE Specimen will be held untested for 8 hours. Call Hematology if testing is desired. Liver Panel Reviewed date:08/02/2024 05:52:40 PM Interpretation: Performing Lab:[facility], [address] [place] [phone] Notes/Report: Bilirubin Total 1.8 0.0-1.0 mg/dL Slight Icte margarita. Bilirubin Direct 0.6 0.0-0.5 mg/dL Slight Ict erus. Aspartate Amino Transferase 28 5-31 U/L Alanine Aminotransferase 23 0-31 U/L Total Protein 5.9 6.5-8.0 g/dL Albumin Level 3.5 3.5-5.0 g/dL Alkaline Phosphatase 60 39-117 U/L Basic Metabolic Panel Fastin g Reviewed date:08/02/2024 05:52:19 PM Interpretation: Performing Lab:[facility], [address] [place] [phone] Notes/Report: Sodium 138 135-145 mmol/L Potassium 3.0 3.3-5.1 mmol/L Chloride 98 96-108 mmol/L Carbon Dioxide 32 22-29 mmol/L Anion Gap 11 12-20 Blood Urea Nitrogen 16 9-16 mg/dL Creatinine 0.65 0.5-1.4 mg/dL Creatinine Clr Calc Pharmacy 49.5 Provided height and weight: 149.86 cm, 66.2 kg. eGFR (calculated from the MDRD study equation) and eCrCl (calculated from the Cockcroft-Gault equation) are based on different parameters and may not yield comparable results. If eCrCl result is absurd, please check patient's height/weight. Estimated Glomerular Filt Rate > 60 Chronic Kidney Disease: Estimated GFR < 60 mL/min/1.73m2 Severe Kidney Disease: Estimated GFR < 15 mL/min/1.73m2 Glucose Fasting 103 60-99 mg/dL A fasting glucose from 100-125 mg/dl is considered impaired (pre-diabetes). Calcium 9.1 8.4-10.2 mg/dL Reason For Referral No Information Plan Of Treatment No Information Insurance Providers Payer Name Payer Address Payer Phone Subscriber Number Group Number Insured Name Patient Relationship to Insured Coverage Start Date Coverage End Date MEDICARE OF [place] [address] [place] [address] [id number] BERNARDINO MURCIA Self - patient is the insured [employer] CLAIMS [address] [place] [address] [phone] [id number] BERNARDINO MURCIA Self - patient is the insured
== END 2024-10-08 13:20 | disposition home or self-care (01) ==
LOC: HO.HGS 12:56
PROVIDERS: PCP Internal Medicine
DX: Z98.890 Other specified postprocedural states (principal)
CPT/HCPCS: 99024

== ENCOUNTER → 2024-10-08 12:55 | Outpatient (BNVA) | payer MEDICARE, SELFPAY | PROVIDERS: PCP Internal Medicine | DX: Z48.815 Encounter for surgical aftercare following surgery on the digestive system (principal); Z98.890 Other specified postprocedural states | CPT/HCPCS: 99212 ==